=== PATIENT | male | born 1960 | race Caucasian/White ===

== ENCOUNTER 2017-11-17 17:05 | Emergency (ER) | payer MEDICAID, SELFPAY ==
--- NOTE | 2017-11-17 17:27 | XR_ITS ---
XR chest 2V HISTORY: Shortness of air ITS.REASON: SOA ORDERING PHYSICIAN: CAMERON Kilpatrick PATIENT AGE: 57 years COMPARISON: 03/10/2017 FINDINGS: There is been prior median sternotomy. There is fracture of the 2 superior most median sternotomy wires nonspecific. Normal heart size. No lobar consolidation or collapse. There is evidence of old granulomatous disease. IMPRESSION: As above, no acute finding
[2017-11-17 17:29] VITALS: BP 208/110; BP 210/102; PULSE 94; RESP 20; TEMP 36.4; O2SAT 93; BMI 33.2
--- NOTE | 2017-11-17 17:42 | HMH.EDUTC ---
[facility] Disposition Clinical Impression: COPD exacerbation Sinusitis Qualifiers: Sinusitis location: maxillary Chronicity: acute Recurrence: not specified as recurrent Qualified Code(s): J01.00 - Acute maxillary sinusitis, unspecified Disposition: Home, Self-Care Condition on Discharge: Good Instructions: DI for Sinusitis Prescriptions: Amoxicillin/Potassium Clav [Augmentin 875-125 Tablet] 1 tab PO Q12H 10 Days #20 tab methylPREDNISolone [Medrol] 4 mg PO DAILY 6 Days #21 tab.ds.pk Guaifenesin/Dextromethorphan [Mucinex Dm ER 1,200-60 mg Tab] 1 each PO BID 10 Days #20 tab.er.12h Albuterol Sulfate [Proventil-HFA 90mcg/puff Inh] 2 puffs IH QIDP PRN #1 inh PRN Reason: Wheezing Time of Disposition: 18:04 Medical Decision Making - Medical Records Medical records reviewed: Yes: I reviewed the patient's medical records. Vital Signs: 11/17/17 17:29 Temperature 97.6 F Temperature Source Temporal Artery Scan Pulse Rate [Right Radial] 94 H Respiratory Rate 20 Blood Pressure [Left Arm] 210/102 Blood Pressure [Right Arm] 208/110 Blood Pressure Mean [Left Arm] 138 Blood Pressure Mean [Right Arm] 142 Blood Pressure Source [Left Arm] Automatic Cuff Blood Pressure Source [Right Arm] Automatic Cuff Blood Pressure Position [Left Arm] Sitting Blood Pressure Position [Right Arm] Sitting 02 Sat by Pulse Oximetry 93 L Oxygen Delivery Method Room Air Orders (Tests/Meds): ED MEDICATIONS Discontinued Medications Generic Name Dose Route Start Last Admin Trade Name Freq PRN Reason Stop Dose Admin Albuterol/Ipratropium 3 ml 11/17/17 17:37 11/17/17 17:40 Duoneb 3ml Neb IH 11/17/17 17:38 3 ml ONCE ONE Administration ORDERS Category Date Time Status Chest XR 2 view (NOT portable) [XR chest 2V] Stat Exams 11/17/17 17:27 Ordered - Radiology Data #1 Image(s): Chest Image Reviewed: Yes I reviewed the patient's radiology image Preliminary Findings: Normal/NAD, No Infiltrates Seen - Dominguez Inquiry Pt receiving controlled substance: No [facility] HPI - General Stated complaint: SOA Time Seen by Provider: 11/17/17 17:40 Mode of Arrival: Family Vehicle Source of Information: Patient Limitations: No Limitations Description of Symptoms (Recalled from Triage Doc. by RN): PT C/O SHORTNESS OF BREATH AND CONGESTION SINCE TUESDAY. HEENT Symptoms (Recalled from RN notes): No Resp Symptoms (Recalled from RN notes): Yes (SOA AND CONGESTION) Skin Symptoms (Recalled from RN notes): No MS Symptoms (Recalled from RN notes): No Functional Status (Recalled from RN notes): NA - History of Present Illness Provider Complaint: Congestion, sinus drainage, cough X 4-5 days. Possible fever. No chills. No body aches. Productive cough, clear sputum. No vomiting or diarrhea. History of CAD, HTN. Onset (ago): day(s) (5) Associated symptoms: cough, malaise, shortness of breath Treatments prior to arrival: none - Related Data Home Medications Medication Instructions Recorded Confirmed Loratadine [Claritin 10mg Tablet] 10 mg PO DAILY 11/17/17 11/17/17 Omeprazole/Sodium Bicarbonate 1 each PO DAILY 11/17/17 11/17/17 [Zegerid 20 mg Capsule] Propranolol HCl 40 mg PO DAILY 11/17/17 11/17/17 Previous Rx's Medication Instructions Recorded Albuterol Sulfate [Proventil-HFA 2 puffs IH QIDP PRN #1 inh 11/17/17 90mcg/puff Inh] Amoxicillin/Potassium Clav 1 tab PO Q12H 10 Days #20 tab 11/17/17 [Augmentin 875-125 Tablet] Guaifenesin/Dextromethorphan 1 each PO BID 10 Days #20 11/17/17 [Mucinex Dm ER 1,200-60 mg Tab] tab.er.12h methylPREDNISolone [Medrol] 4 mg PO DAILY 6 Days #21 tab.ds.pk 11/17/17 Allergies Allergy/AdvReac Type Severity Reaction Status Date / Time No Known Allergies Allergy Verified 11/17/17 17:36 - Worker's Comp Is this a Worker's Comp case?: No [facility] History I have reviewed the patient's past medical history: Yes Medical History: Reports:: Coronary Artery Disease Prabhakar
[2017-11-17 17:44] VITALS: PULSE 89; PULSE 90
--- NOTE | 2017-11-17 17:53 | ED_ITS ---
[facility] [place] Clinical Impression: COPD exacerbation Sinusitis Qualifiers: Sinusitis location: maxillary Chronicity: acute Recurrence: not specified as recurrent Qualified Code(s): J01.00 - Acute maxillary sinusitis, unspecified Disposition: Home, Self-Care Condition on Discharge: Good Instructions: DI for Sinusitis Prescriptions: Amoxicillin/Potassium Clav [Augmentin 875-125 Tablet] 1 tab PO Q12H 10 Days #20 tab methylPREDNISolone [Medrol] 4 mg PO DAILY 6 Days #21 tab.ds.pk Guaifenesin/Dextromethorphan [Mucinex Dm ER 1,200-60 mg Tab] 1 each PO BID 10 Days #20 tab.er.12h Albuterol Sulfate [Proventil-HFA 90mcg/puff Inh] 2 puffs IH QIDP PRN #1 inh PRN Reason: Wheezing Time of Disposition: 18:04 Medical Decision Making - Medical Records Medical records reviewed: Yes: I reviewed the patient's medical records. Vital Signs: 11/17/17 17:29 Temperature 97.6 F Temperature Source Temporal Artery Scan Pulse Rate [Right Radial] 94 H Respiratory Rate 20 Blood Pressure [Left Arm] 210/102 Blood Pressure [Right Arm] 208/110 Blood Pressure Mean [Left Arm] 138 Blood Pressure Mean [Right Arm] 142 Blood Pressure Source [Left Arm] Automatic Cuff Blood Pressure Source [Right Arm] Automatic Cuff Blood Pressure Position [Left Arm] Sitting Blood Pressure Position [Right Arm] Sitting 02 Sat by Pulse Oximetry 93 L Oxygen Delivery Method Room Air Orders (Tests/Meds): ED MEDICATIONS Discontinued Medications Generic Name Dose Route Start Last Admin Trade Name Freq PRN Reason Stop Dose Admin Albuterol/Ipratropium 3 ml 11/17/17 17:37 11/17/17 17:40 Duoneb 3ml Neb IH 11/17/17 17:38 3 ml ONCE ONE Administration ORDERS Category Date Time Status Chest XR 2 view (NOT portable) [XR chest 2V] Stat Exams 11/17/17 17:27 Ordered - Radiology Data #1 Image(s): Chest Image Reviewed: Yes I reviewed the patient's radiology image Preliminary Findings: Normal/NAD, No Infiltrates Seen - Dominguez Inquiry Pt receiving controlled substance: No [facility] - General Stated complaint: SOA Time Seen by Provider: 11/17/17 17:40 Mode of Arrival: Family Vehicle Source of Information: Patient Limitations: No Limitations Description of Symptoms (Recalled from Triage Doc. by RN): PT C/O SHORTNESS OF BREATH AND CONGESTION SINCE TUESDAY. HEENT Symptoms (Recalled from RN notes): No Resp Symptoms (Recalled from RN notes): Yes (SOA AND CONGESTION) Skin Symptoms (Recalled from RN notes): No MS Symptoms (Recalled from RN notes): No Functional Status (Recalled from RN notes): NA - History of Present Illness Provider Complaint: Congestion, sinus drainage, cough X 4-5 days. Possible fever. No chills. No body aches. Productive cough, clear sputum. No vomiting or diarrhea. History of CAD, HTN. Onset (ago): day(s) (5) Associated symptoms: cough, malaise, shortness of breath Treatments prior to arrival: none - Related Data Home Medications Medication Instructions Recorded Confirmed Loratadine [Claritin 10mg Tablet] 10 mg PO DAILY 11/17/17 11/17/17 Omeprazole/Sodium Bicarbonate 1 each PO DAILY 11/17/17 11/17/17 [Zegerid 20 mg Capsule] Propranolol HCl 40 mg PO DAILY 11/17/17 11/17/17 Previous Rx's Medicatio
[2017-11-17 18:10] VITALS: BP 167/92; PULSE 88; RESP 20; TEMP 36.8; O2SAT 94
== END 2017-11-17 18:12 | disposition home or self-care (01) ==
PROVIDERS: Emergency Provider Physician Assistant; Family Provider Family Medicine
DX: J44.1 Chronic obstructive pulmonary disease with (acute) exacerbation (principal); I25.10 Atherosclerotic heart disease of native coronary artery without angina pectoris; F17.210 Nicotine dependence, cigarettes, uncomplicated
CPT/HCPCS: 71046; 99202

== ENCOUNTER → 2018-08-09 16:14 | Outpatient (POV) | payer MEDICAID, SELFPAY | DX: Z00.00 Encounter for general adult medical examination without abnormal findings (principal) ==

== ENCOUNTER → 2021-01-28 13:08 | Outpatient (POV) | payer MEDICAID, SELFPAY | DX: Z00.00 Encounter for general adult medical examination without abnormal findings (principal) ==

== ENCOUNTER 2022-03-12 11:32 | Emergency (ER) | payer MEDICARE, SELFPAY ==
--- NOTE | 2022-03-12 11:27 | ECG_ITS ---
APPROVED REPORT Exam: Resting ECG HR:59 bpm ECG Measurements Heart Rate 59 AXES SC 177 P -26 QRSd 150 QRS -24 QT 434 T 50 QTc 434 Conclusion SINUS BRADYCARDIA INDETERMINATE AXIS RIGHT BUNDLE BRANCH BLOCK [120+ ms QRS DURATION, UPRIGHT V1, 40+ ms S IN I/aVL/V4/V5/V6] ABNORMAL ECG UNCONFIRMED REPORT Electronically signed by : Kimo Mott MD 03/12/2022 15:33:22
[2022-03-12 11:32] VITALS: BP 197/90; PULSE 88; RESP 17; TEMP 36.9; O2SAT 98; BMI 34.2
--- NOTE | 2022-03-12 11:33 | HMH.EDGENADL ---
ED Disposition Clinical Impression: Palpitations Chest pain Qualifiers: Chest pain type: unspecified Qualified Code(s): R07.9 - Chest pain, unspecified Disposition: Home, Self-Care Condition on Discharge: Good Instructions: DI for Atypical Chest Pain, DI for Palpitations Additional Instructions: Follow-up with Dr. Momin, cardiology service, and in the office on Tuesday as instructed. Additional instructions for CHEST PAIN: See your physician as soon as possible for further evaluation. Return immediately if worsening chest pain, vomiting, shortness of breath, fever, coughing of blood. Prescriptions: Losartan Potassium 50 mg PO DAILY #30 tab Transmission Status: Received by [facility] #[id number] Referrals: Ric Roberts MD [Primary Care Provider] - Tony Momin MD [Staff Physician] - - Critical Care Critical Care Time: No Attestation: On , the high probability of a clinically significant, sudden or life threatening deterioration of the following system(s) required my full and direct attention, intervention and personal management. The time I documented below is in addition to time spent performing reported procedures but includes the following listed in this critical care notation. Medical Decision Making - Dominguez Inquiry Pt receiving controlled substance: No Vital Signs: 03/12/22 11:32 03/12/22 12:36 03/12/22 13:01 Temperature 98.4 F Temperature Source Oral Pulse Rate 54 L 54 L Pulse Rate [Left Radial] 88 Respiratory Rate 17 16 18 Blood Pressure 166/75 H 177/83 H Blood Pressure [Right Arm] 197/90 H Blood Pressure Mean 105 114 Blood Pressure Mean [Right Arm] 125 Blood Pressure Source Blood Pressure Source [Right Arm] Automatic Cuff Blood Pressure Position Blood Pressure Position [Right Arm] Sitting 02 Sat by Pulse Oximetry 98 96 95 Oxygen Delivery Method Room Air 03/12/22 13:31 03/12/22 16:16 03/12/22 16:35 Temperature 98.2 F Temperature Source Pulse Rate 55 L 53 L 51 L Pulse Rate [Left Radial] Respiratory Rate 16 18 20 Blood Pressure 168/75 H 177/84 H 173/84 H Blood Pressure [Right Arm] Blood Pressure Mean 106 Blood Pressure Mean [Right Arm] Blood Pressure Source Automatic Cuff Blood Pressure Source [Right Arm] Blood Pressure Position Sitting Blood Pressure Position [Right Arm] 02 Sat by Pulse Oximetry 97 94 L Oxygen Delivery Method Room Air - Lab Data Lab Results 03/12/22 11:30: Sodium 140, Potassium 4.2, Chloride 104, Carbon Dioxide 28, Anion Gap 12.2, BUN 16, Creatinine 0.90, Estimated Creat Clear 146, Estimated GFR 86, Est GFR ( Amer) 104, Glucose 94, Calcium 9.3, Total Bilirubin 0.5, AST 38, ALT 25, Alkaline Phosphatase 82, Troponin I < 0.01, Total Protein 8.5 H, Albumin 4.4, Globulin 4.1 H, Albumin/Globulin Ratio 1.1 03/12/22 11:30: WBC 11.9 H, RBC 5.13, Hgb 16.2, Hct 48.1, MCV 93.8, MCH 31.6 H, MCHC 33.7, RDW 14.1, Plt Count 137 L, MPV 12.4 H, Neut % (Auto) 56.5, Lymph % (Auto) 30.5, [place] % (Auto) 6.1, Eos % (Auto) 3.7, Baso % (Auto) 3.2 H, Neut # (Auto) 6.8, Lymph # (Auto) 3.7, [place] # (Auto) 0.7, Eos # (Auto) 0.4, Baso # (Auto) 0.4 H 03/12/22 14:45: Troponin I < 0.01 Result diagrams: 03/12/22 11:30 03/12/22 11:30 Orders (Tests/Meds): ED MEDICATIONS Discontinued Medications Generic Name Dose Route Start Last Admin Trade Name Freq PRN Reason Stop Dose Admin Aspirin 162 mg 03/12/22 11:39 03/12/22 11:40 Aspirin 81mg Chewable Tablet PO 03/12/22 11:40 162 mg ONCE ONE Administration Irbesartan 75 mg 03/12/22 16:15 03/12/22 16:22 Irbesartan 75mg Tablet PO 03/12/22 16:16 75 mg ONCE ONE Administration Sodium Chloride 10 ml 03/12/22 11:37 Sodium Chloride 0.9% 10ml Flush Syringe IV 04/11/22 11:36 NEEDED PRN Maintain IV Site ORDERS Category Date Time Status Consult to Cardiology [CONS] Routine Cons 03/12/22 12:37 Active Troponin I Q3H Lab
--- NOTE | 2022-03-12 11:37 | XR_ITS ---
FINAL REPORT CLINICAL HISTORY: chest pressure COMPARISON: February 06, 2019 FINDINGS: Two views of the chest were obtained. There has been median sternotomy. The heart size and pulmonary vascularity are within normal limits. The mediastinum is normal. There is mild left lung base atelectasis. There is no pneumothorax. The bony thorax is intact. IMPRESSION: Mild left base atelectasis. Reviewed, Interpreted and Dictated by Mike Cleveland III, MD Transcribed by Diogo Evangelista Authenticated and [facility]
[2022-03-12 11:53] LABS: Alanine Aminotransferase 25 U/L (12-78); Albumin Level 4.4 g/dl (3.5-5.0); Albumin/Globulin Ratio 1.1 (1.1-1.8); Alkaline Phosphatase 82 U/L (38-126); Anion Gap 12.2 mEq/L (5-15); Aspartate Amino Transferase 38 U/L (17-59); Bilirubin,Total 0.5 mg/dl (0.2-1.3); Blood Urea Nitrogen 16 mg/dl (9-20); Calcium 9.3 mg/dl (8.4-10.2); Carbon Dioxide 28 mmol/L (22.0-30.0); Chloride 104 mmol/L (98-107); Creatinine Clearance Estimated 146 mL/min (50-200); Estimated Glomerular Filt Rate 86 ml/min (>60); GFR (African American) 104 ML/MIN (>60); Globulin 4.1 g/dL (1.3-3.2); Glucose 94 mg/dl (74-100); Potassium 4.2 mmoL/L (3.5-5.1); Sodium 140 mmol/L (136-145); Total Protein,Serum 8.5 g/dl (6.3-8.2)
[2022-03-12 12:01] LABS: Basophils # 0.4 K/mm3 (0-0.2); Basophils % 3.2 % (0.1-2.0); Eosinophils # 0.4 K/mm3 (0.0-0.4); Eosinophils % 3.7 % (0.1-12.0); Hematocrit 48.1 % (42.0-52.0); Hemoglobin 16.2 g/dL (14.1-18.0); Lymphocytes # 3.7 K/mm3 (0.7-4.5); Lymphocytes % 30.5 % (10-50); Mean Corpuscular HGB Conc 33.7 g/dL (31.8-35.4); Mean Corpuscular Hemoglobin 31.6 pg (27.0-31.2); Mean Corpuscular Volume 93.8 fl (80-94); Mean Platelet Volume 12.4 fl (7.4-10.4); Monocytes # 0.7 K/mm3 (0.1-1.0); Monocytes % 6.1 % (1.7-9.3); Neutrophils # 6.8 K/mm3 (1.8-7.8); Neutrophils % 56.5 % (37.0-80.0); Platelet Count 137 K/mm3 (142-424); Red Blood Count 5.13 M/mm3 (4.60-6.20); Red Cell Distribution Width 14.1 % (11.5-17.5); White Blood Count 11.9 K/mm3 (4.8-10.8)
[2022-03-12 12:08] LABS: Troponin I < 0.01 ng/ml (0.00-0.034)
--- NOTE | 2022-03-12 12:25 | PC.NURSE ---
checked on pt at this time, visitor at BS. Pt states no needs at this time. Will continue to monitor
[2022-03-12 12:36] VITALS: BP 166/75; PULSE 54; RESP 16; O2SAT 96
--- NOTE | 2022-03-12 12:43 | PC.NURSE ---
Cardiology paged for consult
[2022-03-12 13:01] VITALS: BP 177/83; PULSE 54; RESP 18; O2SAT 95
[2022-03-12 13:31] VITALS: BP 168/75; PULSE 55; RESP 16; O2SAT 97
--- NOTE | 2022-03-12 13:38 | PC.NURSE ---
DANISHA TOPETE speaking with CAMERON Enriquez with cardiology at this time.
--- NOTE | 2022-03-12 13:44 | PC.NURSE ---
CV lab notified of need for Echo
--- NOTE | 2022-03-12 13:53 | PC.NURSE ---
ASSISTED TO BR AT THIS TIME
--- NOTE | 2022-03-12 14:13 | CA_ITS ---
APPROVED REPORT EXAM: Comprehensive 2D, Doppler, and color-flow Echocardiogram Merchandise Shopper: Aleja Harrison CRT Ht: 6 ft 1 in Wt: 260lbs BSA: 2.41 BP: 168/75 mmHg Indications: CP, SMOKER, OLD NM, CABG AT 35 YRS OLD 2D Dimensions LVOT 2.02 cm (M/F) 1.5-2.5 LA Volume 80.60 mL LA Volume Index 33.501958 mL/m2 (M/F) 16-34 M-Mode Dimensions RVDd 3.62 cm (0.9-2.6) LA Diam 4.09 cm (1.9-4.0) LVDd 4.99 cm (3.5-5.7) Ao Diam 4.71 cm (2.0-3.7) LVDs 2.58 cm (3.5-5.7) IVSd 1.69 cm (0.6-1.1) PWd 1.05 cm (0.6-1.1) EF (Teich) 79.50% FS 48.30% EDV (Teich) 117.70 mL TAPSE 1.66 (<1.7) ESV (Teich) 24.10 mL LV Diastology E Decel Time 207.00 (160-240 msec) E/A Ratio 1.56 MED E' 5.50 (< 7 cm/sec) MED A' 6.00 cm/s E'/MED E' Ratio 17.25 (>14) LAT E' 7.90 (<10 cm/sec) LAT A' 6.20 cm/s E/LAT E' Ratio 12.01 (>14) Aortic Valve AO Peak GR. 4.50 mmHg Mitral Valve MV A Velocity 61.00 (40-130 cm/s) E/A Ratio 1.56 MV Decel. Time 207.00 (160-240 ms) Pulmonary Valve PV Peak Velocity 119.00 (50-150 cm/s) Tricuspid Valve TR P. Velocity 214.00 cm/s RAP Estimate 10.00 mmHg RVSP 28.30 mmHg Left Ventricle Left atrium is mildly enlarged, left ventricle is normal size, mild concentric left ventricular hypertrophy, estimated ejection fraction 55% with no regional wall motion abnormality, diastolic parameters are inconclusive. Right Ventricle Right atrium and right ventricle mildly enlarged with normal contractility. Aortic Valve Aortic valve is minimally thickened and fibrosed there is no aortic stenosis aortic insufficiency. Mitral Valve Mitral valve grossly normal, there is trace mitral regurgitation. Tricuspid Valve Tricuspid grossly normal, there is trace tricuspid regurgitation, tricuspid regurgitation jet velocity is inadequate for calculation of the right ventricular systolic pressure. Pulmonic Valve Pulmonic valve is poorly visualized. Great Vessels Aortic root is normal size. Inferior vena cava is poorly visualized. Pericardium No significant pericardial effusion noted. Conclusion 1. Mild biatrial enlargement, normal left ventricular size, mild concentric left ventricular hypertrophy, estimated ejection fraction 55% with no regional wall motion abnormality, diastolic parameters are inconclusive. 2. Mildly enlarged right ventricle with normal contractility. 3. Trace mitral and tricuspid regurgitation. 4. No significant pericardial effusion. 5. Inferior vena cava is poorly visualized. Electronically signed by : Herman Og MD 03/12/2022 16:02:54
--- NOTE | 2022-03-12 14:15 | PC.NURSE ---
contacted RT for 48 hr holter monitor
--- NOTE | 2022-03-12 14:49 | PC.NURSE ---
Vascular here for echo
--- NOTE | 2022-03-12 15:04 | HMH.CNCARD ---
History of Present Illness Consult date: 03/12/22 Requesting physician: Jay Russell Consult reason: chest pain Chief complaint: CP, Palpitations, dizziness Additional Medical History:: 1. Atypical chest pain (02/06/19) A. Troponins normal 2. Coronary Artery Disease a. [place] (age 35) b. CABG x2 (1994)([facility] in [place]) c. Coronary stent (2016) ([place]) 3. Tobacco user a. Less than 1 ppk b. Smoker for over 30 years 4. Chronic Alcoholism a. 2017 5. Essential Hypertension 6. Macular degeneration of eye disease a. Legally blind for the past 8 years History of present illness: States that he has been having chest discomfort, racing heart the off and on for about 1 to 2 weeks. Currently only has a slight tightness in his chest. No associated nausea or shortness of breath, but sometimes gets sweaty. Sometimes has some discomfort in his left arm. He is on metoprolol and aspirin for heart disease. He has a prior history of [place] and coronary artery bypass surgery at the age of 35. Does not currently see a drug safety coordinator. The above per Dr. Russell Patient relates coronary bypass 25 years ago with last stress test approximately 10 to 12 years ago. As noted above he has not seen a drug safety coordinator in the recent past. EKG is sinus rhythm with right bundle branch block, unchanged from 2019 tracing. Chest x-ray negative for acute etiology. Patient is legally blind He was seen in the ER by cardiology 3 years ago but failed to follow-up for outpatient evaluation. [facility] History Medical History: Reports:: Coronary Artery Disease, Myocardial Infarction Denies:: Cancer, Diabetes Mellitus Type 1, Diabetes Mellitus Type 2, MRSA *Have you ever received a pneumonia vaccine?: No *Have you received a flu vaccine this season?: No Other Surgeries: Yes: CABG Amputation: No - *Social History Smoking Status: Current every day smoker Tobacco Type: cigarettes # Packs/Day (cigarettes): 1 Alcohol Intake: never *Occupational Status:: disabled *Travel in the last 8 weeks: Inside the [facility] Family Hx:: No significant family history Meds Home Medications Medication Instructions Recorded Confirmed Type Loratadine [Claritin 10mg 10 mg PO DAILY 11/17/17 02/06/19 History Tablet] Albuterol Sulfate [Albuterol HFA 2 puffs IH Q6HP PRN #1 inh 03/08/18 02/06/19 Rx Inhaler] Metoprolol Succinate 100 mg PO DAILY 03/08/18 02/06/19 History Fluticasone Propionate [Flonase 2 spr NS DAILY 02/06/19 02/06/19 History 50mcg nasal spray 16gm] Propranolol HCl [Inderal LA] 60 mg PO DAILY 02/06/19 02/06/19 History Ibuprofen [Ibuprofen 600mg 600 mg PO Q6HP PRN #30 tab 04/12/19 Rx Tablet] cephALEXin [Keflex 500mg Cap] 500 mg PO Q6H 10 Days #40 cap 04/12/19 Rx Allergies Allergy/AdvReac Type Severity Reaction Status Date / Time No Known Allergies Allergy Verified 11/17/17 17:36 Exam Vital signs and Labs for Last 24 Hours: Temp Pulse Resp BP Pulse Ox 98.4 F 55 L 16 168/75 H 97 03/12/22 11:32 03/12/22 13:31 03/12/22 13:31 03/12/22 13:31 03/12/22 13:31 Laboratory Results - last 24 hr 03/12/22 11:30: Sodium 140, Potassium 4.2, Chloride 104, Carbon Dioxide 28, Anion Gap 12.2, BUN 16, Creatinine 0.90, Estimated Creat Clear 146, Estimated GFR 86, Est GFR ( Amer) 104, Glucose 94, Calcium 9.3, Total Bilirubin 0.5, AST 38, ALT 25, Alkaline Phosphatase 82, Troponin I < 0.01, Total Protein 8.5 H, Albumin 4.4, Globulin 4.1 H, Albumin/Globulin Ratio 1.1 03/12/22 11:30: WBC 11.9 H, RBC 5.13, Hgb 16.2, Hct 48.1, MCV 93.8, MCH 31.6 H, MCHC 33.7, RDW 14.1, Plt Count 137 L, MPV 12.4 H, Neut % (Auto) 56.5, Lymph % (Auto) 30.5, [place] % (Auto) 6.1, Eos % (Auto) 3.7, Baso % (Auto) 3.2 H, Neut # (Auto) 6.8, Lymph # (Auto) 3.7, [place] # (Auto) 0.7, Eos # (Auto) 0.4, Baso # (Auto) 0.4 H I & O for Last 24 hours: Intake & Output 03/10/22 03/11/22 03/12/22 03/13/22 11:59 11:59 1
[2022-03-12 15:27] LABS: Troponin I < 0.01 ng/ml (0.00-0.034)
--- NOTE | 2022-03-12 15:56 | PC.NURSE ---
Updated pt and visitor that 2nd troponin was negative and MD was repairing a laceration and as soon as he was finished he would review the rest of pt's results and would more than likely be d/c'ed home. PT agreeable to POC and no new needs.
[2022-03-12 16:16] VITALS: BP 177/84; PULSE 53; RESP 18; O2SAT 94
[2022-03-12 16:35] VITALS: BP 173/84; PULSE 51; RESP 20; TEMP 36.8; O2SAT 96
== END 2022-03-12 16:35 | disposition home or self-care (01) ==
PROVIDERS: Emergency Provider Emergency Medicine; PCP Family Medicine
DX: R07.89 Other chest pain (principal); R00.2 Palpitations; R42 Dizziness and giddiness; M79.602 Pain in left arm; R00.1 Bradycardia, unspecified; I10 Essential (primary) hypertension; I25.10 Atherosclerotic heart disease of native coronary artery without angina pectoris; I45.10 Unspecified right bundle-branch block; E78.5 Hyperlipidemia, unspecified; H35.30 Unspecified macular degeneration; H54.8 Legal blindness, as defined in USA; J98.11 Atelectasis; F10.20 Alcohol dependence, uncomplicated; F17.210 Nicotine dependence, cigarettes, uncomplicated; Z79.1 Long term (current) use of non-steroidal anti-inflammatories (NSAID); Z79.51 Long term (current) use of inhaled steroids; Z79.82 Long term (current) use of aspirin; Z79.899 Other long term (current) drug therapy; Z95.1 Presence of aortocoronary bypass graft; Z95.5 Presence of coronary angioplasty implant and graft
CPT/HCPCS: 36415; 71046; 80053; 84484; 85025; 93005; 93225; 93226; 93306; 99285

== ENCOUNTER → 2022-03-30 07:35 | Outpatient (CLI) | payer MEDICARE, SELFPAY ==
--- NOTE | 2022-03-30 09:13 | HMH.ITSHM ---
Current Home Medications as stated by this patient Ronal Larkin or reimbursement representative. []LOSARTAN ATORVASTATIN METOPROLOL LORATADINE IBUPROFEN ALBUTEROL
== END ==
LOC: RAD 07:36
PROVIDERS: PCP Family Medicine; Visit Provider Nurse Practitioner Family
DX: E78.5 Hyperlipidemia, unspecified (principal); I10 Essential (primary) hypertension; R00.2 Palpitations; R55 Syncope and collapse; Z72.0 Tobacco use; Z95.1 Presence of aortocoronary bypass graft; I20.8 Other forms of angina pectoris
CPT/HCPCS: 78452; 93017; A9502; J2785

== ENCOUNTER → 2023-03-15 11:48 | Outpatient (CLI) | payer MEDICARE, SELFPAY ==
[2023-03-15 12:24] LABS: Basophils # 0.1 K/mm3 (0-0.2); Basophils % 0.6 % (0.1-2.0); Eosinophils # 0.3 K/mm3 (0.0-0.4); Eosinophils % 3.3 % (0.1-12.0); Hematocrit 42.2 % (42.0-52.0); Hemoglobin 14.1 g/dL (14.1-18.0); Lymphocytes % 29.4 % (10-50); Mean Corpuscular HGB Conc 33.5 g/dL (31.8-35.4); Mean Corpuscular Hemoglobin 30.5 pg (27.0-31.2); Mean Corpuscular Volume 91.3 fl (80-94); Mean Platelet Volume 11.7 fl (7.4-10.4); Monocytes # 0.7 K/mm3 (0.1-1.0); Monocytes % 6.5 % (1.7-9.3); Neutrophils # 6.2 K/mm3 (1.8-7.8); Neutrophils % 60.2 % (37.0-80.0); Platelet Count 140 K/mm3 (142-424); Red Blood Count 4.62 M/mm3 (4.60-6.20); Red Cell Distribution Width 13.7 % (11.5-17.5); White Blood Count 10.2 K/mm3 (4.8-10.8)
[2023-03-15 13:05] LABS: Alanine Aminotransferase 26 U/L (12-78); Albumin Level 4.2 g/dl (3.5-5.0); Alkaline Phosphatase 89 U/L (38-126); Anion Gap 15.3 mEq/L (5-15); Aspartate Amino Transferase 35 U/L (17-59); Bilirubin,Indirect 0.7 mg/dL (0.0-0.9); Bilirubin,Total 0.7 mg/dl (0.2-1.3); Bilirubin,Unconjugated 0.8 mg/dL (0.0-1.1); Blood Urea Nitrogen 14 mg/dl (9-20); Calcium 9.2 mg/dl (8.4-10.2); Carbon Dioxide 26 mmol/L (22.0-30.0); Chloride 102 mmol/L (98-107); Chol/HDL Ratio 5.5 (1-3.5); Cholesterol 132 mg/dl (140-200); Estimated Glomerular Filt Rate 68 ml/min (>60); GFR (African American) 82 ML/MIN (>60); Glucose 86 mg/dl (74-100); HDL Cholesterol 24 mg/dl (40-60); Magnesium 1.9 mg/dl (1.6-2.3); Potassium 4.3 mmoL/L (3.5-5.1); Sodium 139 mmol/L (136-145); Total Protein,Serum 7.6 g/dl (6.3-8.2); Triglycerides 316 mg/dl (30-150); VLDL Cholesterol 63 mg/dL (0-40)
[2023-03-15 13:16] LABS: Direct LDL Cholesterol 49.94 mg/dL (100-129)
[2023-03-15 13:37] LABS: Thyroid Stimulating Hormone 1.37 uIU/mL (0.465-4.68)
== END ==
PROVIDERS: PCP Family Medicine; Visit Provider Nurse Practitioner
DX: E78.5 Hyperlipidemia, unspecified (principal); I10 Essential (primary) hypertension; I25.118 Atherosclerotic heart disease of native coronary artery with other forms of angina pectoris; R00.2 Palpitations; R07.9 Chest pain, unspecified; Z72.0 Tobacco use; Z95.1 Presence of aortocoronary bypass graft
CPT/HCPCS: 36415; 80048; 80061; 80076; 83735; 84439; 84443; 85025

== ENCOUNTER 2024-09-25 12:40 | Outpatient (CLI) | payer MEDICARE, SELFPAY ==
[2024-09-25 12:59] LABS: Basophils # 0.1 K/mm3 (0-0.2); Basophils % 0.8 % (0.1-2.0); Eosinophils # 0.3 K/mm3 (0.0-0.4); Eosinophils % 3.2 % (0.1-12.0); Hematocrit 41.5 % (42.0-52.0); Hemoglobin 13.9 g/dL (14.1-18.0); Lymphocytes # 2.6 K/mm3 (0.7-4.5); Lymphocytes % 28.3 % (10-50); Mean Corpuscular HGB Conc 33.5 g/dL (31.8-35.4); Mean Corpuscular Volume 92.4 fl (80-94); Mean Platelet Volume 12.9 fl (7.4-10.4); Monocytes # 0.7 K/mm3 (0.1-1.0); Monocytes % 8.2 % (1.7-9.3); Neutrophils # 5.4 K/mm3 (1.8-7.8); Neutrophils % 59.3 % (37.0-80.0); Platelet Count 119 K/mm3 (142-424); Red Blood Count 4.49 M/mm3 (4.60-6.20); White Blood Count 9.1 K/mm3 (4.8-10.8)
[2024-09-25 13:44] LABS: Albumin Level 4.3 g/dl (3.5-5.0); Chloride 104 mmol/L (98-107); Potassium 4.4 mmoL/L (3.5-5.1); Sodium 139 mmol/L (136-145)
[2024-09-25 13:46] LABS: Bilirubin,Unconjugated 0.5 mg/dL (0.0-1.1); Blood Urea Nitrogen 18 mg/dl (9-20); Estimated Glomerular Filt Rate 68 ml/min (>60); GFR (African American) 82 ML/MIN (>60)
[2024-09-25 13:47] LABS: Alanine Aminotransferase 24 U/L (12-78); Alkaline Phosphatase 79 U/L (38-126); Anion Gap 13.4 mEq/L (5-15); Aspartate Amino Transferase 36 U/L (17-59); Bilirubin,Direct 0.3 mg/dl (0.0-0.4); Bilirubin,Indirect 0.5 mg/dL (0.0-0.9); Bilirubin,Total 0.8 mg/dl (0.2-1.3); Calcium 9.6 mg/dl (8.4-10.2); Carbon Dioxide 26 mmol/L (22.0-30.0); Cholesterol 134 mg/dl (140-200); Glucose 88 mg/dl (74-100); Total Protein,Serum 7.2 g/dl (6.3-8.2); Triglycerides 274 mg/dl (30-150); VLDL Cholesterol 55 mg/dL (0-40)
[2024-09-25 13:48] LABS: Chol/HDL Ratio 6.4 (1-3.5); HDL Cholesterol 21 mg/dl (40-60)
[2024-09-25 14:03] LABS: Free T4 (Free Thyroxine) 0.91 ng/dl (0.78-2.19)
[2024-09-25 14:18] LABS: Thyroid Stimulating Hormone 1.42 uIU/mL (0.465-4.68)
== END 2024-09-25 23:59 | disposition home or self-care (01) ==
LOC: LAB 12:42
PROVIDERS: PCP Family Medicine; Visit Provider Physician Assistant
DX: I25.118 Atherosclerotic heart disease of native coronary artery with other forms of angina pectoris (principal); Z95.1 Presence of aortocoronary bypass graft; I10 Essential (primary) hypertension; E78.5 Hyperlipidemia, unspecified; F17.210 Nicotine dependence, cigarettes, uncomplicated
CPT/HCPCS: 36415; 80048; 80061; 80076; 83735; 84439; 84443; 85025

== ENCOUNTER 2024-12-27 14:37 | Outpatient (CLI) | payer MEDICARE, SELFPAY ==
--- NOTE | 2024-12-27 14:30 | CA_ITS ---
FINAL REPORT TECHNIQUE: Compression barr scale and Doppler evaluation CLINICAL HISTORY: Right leg pain, CAD-CABG, Smoker COMPARISON: None FINDINGS: Right femoral and popliteal veins show normal compressibility and flow. Visualized portion of the calf veins are patent by Doppler exam. There is incidental note of popliteal arterial thrombosis, mildly aneurysmal. If clinically indicated, CTA could be performed for further evaluation. IMPRESSION: No evidence of right lower extremity deep venous thrombosis Incidental note is made of popliteal arterial thrombosis, which appears mildly aneurysmal. If clinically indicated CTA could be performed for further evaluation. The chemistry technologist at 12/27/2024 informed the ordering physician of this finding. Reviewed, Interpreted and Dictated by Muriel aCr MD Transcribed by Charo Islas Authenticated and [facility]
== END 2024-12-27 23:59 | disposition home or self-care (01) ==
PROVIDERS: PCP Internal Medicine; Visit Provider Physician Assistant
DX: I74.3 Embolism and thrombosis of arteries of the lower extremities (principal); M79.604 Pain in right leg; R07.89 Other chest pain; I25.118 Atherosclerotic heart disease of native coronary artery with other forms of angina pectoris
CPT/HCPCS: 93971

== ENCOUNTER 2025-01-09 13:14 | Outpatient (CLI) | payer MEDICARE, SELFPAY ==
--- NOTE | 2025-01-09 | CA_ITS ---
APPROVED REPORT EXAM: Comprehensive 2D, Doppler, and color-flow Echocardiogram Artificial Plastic Eye Maker: ALEJANDRA De Souza, RVS Ht: 6 ft 1 in Wt: 254lbs BSA: 2.38 BP: 141/63 mmHg Indications: Edema x 1 month, DVT, S/p COVID 1 month ago, CAD-CABG, Abn EKG, Smoker 2D Dimensions IVSd 1.07 cm M: 0.6-1.2 LVEF (Visual) 65.10 % PWd 1.08 cm M: 0.6 - 1.2 LA Volume 43.40 mL LVDd 4.82 cm M: 4.2 - 5.9 LA Volume Index [id number] mL/m2 (M/F) 16-34 LVDs 3.10 cm M: 2.5 - 4.0 Left Atrium 3.53 cm M: 3.0 - 4.0 M-Mode Dimensions LA Diam 3.65 cm (1.9-4.0) EPSs 0.80 cm TAPSE 1.52 (<1.7) LV Diastology E Decel Time 197 (160-240 msec) E/A Ratio 1.03 MED A' 9.70 cm/s LAT A' 10.40 cm/s Aortic Valve CHOLO Index 1.02 cm2/m2 AoV Peak [place]. 152.0 (50-130 cm/s) AO Peak GR. 9.30 mmHg AO Mean GR. 4.60 (<5 mmHg) AO VTI 32.6 (18-25 cm) CHOLO (VTI) 2.50 (2.5-4.5 cm2) Mitral Valve MV A Velocity 65.0 (40-130 cm/s) E/A Ratio 1.03 Tricuspid Valve TR P. Velocity 253.00 cm/s RAP Estimate 10.00 mmHg RVSP 35.60 mmHg Left Ventricle The left ventricle is normal size. The left ventricular systolic function is normal. The left ventricular ejection fraction is within the normal range. There is increased LV wall thickness. There is normal LV segmental wall motion. The left ventricular diastolic function is normal. LVEF is 55%. Right Ventricle The right ventricle is normal size. The right ventricular systolic function is normal. Atria Left atrium is mildly dilated. The right atrium size is normal. There is no Doppler evidence of interatrial shunt. Aortic Valve The aortic valve is mildly thickened. There is no aortic valvular stenosis. Trace aortic regurgitation. Mitral Valve The mitral valve is normal in structure. No evidence of mitral valve stenosis. Trace mitral regurgitation. Tricuspid Valve Tricuspid valve is grossly normal in structure and function. Trace tricuspid regurgitation. Pulmonic Valve Pulmonic valve is grossly normal in structure. Trace pulmonic regurgitation. Great Vessels The aortic root is normal in size. IVC is normal in size and collapses >50% with inspiration. Pericardium There is no pericardial effusion. Other Information Study Quality: Fair Conclusion Normal biventricular systolic function. Mild LA dilation. No significant valvular stenosis or regurgitation. Electronically signed by : Alma Sen MD 01/09/2025 14:31:50
== END 2025-01-09 23:59 | disposition home or self-care (01) ==
PROVIDERS: PCP Internal Medicine; Visit Provider Physician Assistant
DX: I51.7 Cardiomegaly (principal); R07.89 Other chest pain; I25.118 Atherosclerotic heart disease of native coronary artery with other forms of angina pectoris
CPT/HCPCS: 93306

== ENCOUNTER 2025-01-11 08:47 | Day surgery (SDC) | payer MEDICARE, SELFPAY ==
[2025-01-11] VITALS (10 sets, daily range): BP systolic 120–149; BP diastolic 59–72; PULSE 66–80; RESP 16–18; TEMP 36.6–36.9; O2SAT 93–96; BMI 33.6
--- NOTE | 2025-01-11 07:07 | IR_ITS ---
APPROVED REPORT Patient Location: Outpatient PROCEDURES Left femoral arterial access Catheter placement right popliteal artery Right popliteal artery antegrade angiogram Attempted angioplasty of a chronically occluded right popliteal artery Catheter placement in the right common iliac artery Right common iliac artery selective angiogram Bare-metal stent deployment to the ostial proximal segment of the right common iliac artery INDICATION [place] claudication class IV, Occluded right popliteal artery, 60 mm gradient from the aorta to the right common femoral artery, Right common iliac artery stenosis Informed consent was obtained prior to the procedure. COMPLICATIONS NONE Estimated Blood Loss: LESS THAN 10 ML TECHNIQUE 1% lidocaine used to anesthetize the left femoral groin. The left femoral artery was accessed via the Seldinger technique. A 5 Upper Sorbian sheath was placed in the left femoral artery. A rim catheter was advanced to the distal abdominal aorta and an advantage wire was placed distally into the right superficial femoral artery and then advanced under fluoroscopic guidance. Angiography was performed. This was repeated at the popliteal level. Therapeutic heparin was then administered giving a therapeutic ACT. There was a demonstrable 60 mm gradient between the aorta and the right common femoral artery upon passage of the sheath. An advantage wire and a trailblazer catheter was used to push through the chronic occlusion in the distal SFA going into the popliteal artery. This was densely calcified and heavily atheromatous. 2 cm proximal to the reconstitution of the popliteal artery the wire left the vessel and recanalization of the true or false lumen cannot be obtained. At this point it was decided to abandon the reconstitution of the popliteal artery and focus on the common iliac artery. Catheter was pulled back and an 8 mm x 57 mm bare-metal balloon mounted stent was deployed at 15 [place] reducing the severe stenosis to 0%. The sheath was advanced and there was no demonstrable gradient across the lesion. Excellent angiograph results were obtained. At the end of procedure the apparatus was removed the groin is reprepped closure change sheath was removed and hemostasis was achieved using Perclose device patient was transferred to the postop putting in stable condition ANGIOGRAPHIC RESULTS Right common iliac artery has an ostial 70 to 80% calcified stenosis followed by a distal 50% stenosis. Right internal iliac artery is patent Right external iliac artery is patent Right common femoral artery is atheromatous but patent Right profunda femoris artery is patent Right superficial femoral artery has heavy atheromatous plaque from the ostial segment down to the midportion and is occluded at Martinez's canal. It reconstitutes at the patellar space back into the popliteal artery. 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 Plavix and aspirin 2. For the time being I believe the culprit for the right lower limb claudication was the common iliac artery. Ideally I would like to treat the chronically occluded popliteal artery medically. By increasing inflow this should resolve most of patient's claudication 3. Patient has extensive atheromatous debris. I am concerned about the relatively normal KELLY. I suspect bilateral subclavian artery stenosis may be present. 4. Recommend upper extremity CTA 5. Patient almost certainly has Eva vascular disease and I recommend full ischemic cardiac workup 6. LDL less than 55 to be 2 that high intensity statin 7. If patient continues to experience intolerable claudication he can revisit opening the popliteal artery. I do believe the claudication will be much improved and acceptable now the iliac artery stenosis is resolved Electronically signed by : Tony Momin MD 01/11/2025 12:56:11
[2025-01-11 09:13] LABS: Basophils # 0.1 K/mm3 (0-0.2); Basophils % 0.6 % (0.1-2.0); Eosinophils # 0.4 Kmm3 (0.0-0.4); Eosinophils % 3.2 % (0.1-12.0); Hematocrit 44.6 % (42.0-52.0); Hemoglobin 14.8 g/dL (14.1-18.0); Lymphocytes # 3.5 K/mm3 (0.7-4.5); Lymphocytes % 30.1 % (10-50); Mean Corpuscular HGB Conc 33.2 g/dL (31.8-35.4); Mean Corpuscular Hemoglobin 30.9 pg (27.0-31.2); Mean Corpuscular Volume 93.1 fl (80-94); Mean Platelet Volume 12.8 fl (7.4-10.4); Monocytes % 8.8 % (1.7-9.3); Neutrophils # 6.7 K/mm3 (1.8-7.8); Nucleated Red Blood Cells # 0 10^3/uL; Nucleated Red Blood Cells % 0 %; Platelet Count 168 K/mm3 (142-424); Red Blood Count 4.79 M/mm3 (4.60-6.20); Red Cell Distribution Width 13.8 % (11.5-17.5); Red Cell Distribution Width-SD 47.3 fL; White Blood Count 11.7 K/mm3 (4.8-10.8)
[2025-01-11 09:35] LABS: Chloride 103 mmol/L (98-107); Potassium 4.9 mmoL/L (3.5-5.1); Sodium 137 mmol/L (136-145)
[2025-01-11 09:38] LABS: Anion Gap 17.9 mEq/L (5-15); Blood Urea Nitrogen 16 mg/dl (9-20); Carbon Dioxide 21 mmol/L (22.0-30.0); Creatinine Clearance Estimated 112 mL/min (50-200); Estimated Glomerular Filt Rate 68 ml/min (>60); GFR (African American) 82 ML/MIN (>60)
[2025-01-11 09:39] LABS: Glucose 101 mg/dl (74-100)
[2025-01-11] MEDS: HEPARIN 1,000 UNITS/500ML NS (CATH LAB) 3000 UNIT IV (11:12)
[2025-01-11] MEDS: 0.9 % SODIUM CHLORIDE 500 ML 25 ML IV (11:12)
[2025-01-11] MEDS: NITROGLYCERIN 800MCG/8ML SYR (CATH LAB) 800 MCG IA (11:15)
[2025-01-11] MEDS: diphenhydrAMINE 50MG/ML VIAL 50 MG IV (11:15)
[2025-01-11] MEDS: LIDOCAINE 1% 10ML MDV 10 ML IJ (11:17)
[2025-01-11] MEDS: HEPARIN 1,000 UNITS/ML 10ML VIAL (CATH LAB) 5000 UNIT IV (11:57)
[2025-01-11] MEDS: MIDAZOLAM HCL 1MG/ML 5ML VIAL 1 MG IV (12:26)
[2025-01-11] MEDS: FENTANYL 100MCG/2ML VIAL 50 MCG IV (12:27)
[2025-01-11] MEDS: PROPOFOL 10MG/ML 20ML VIAL 40 MG IV (12:35)
[2025-01-11] MEDS: CLOPIDOGREL 300MG TABLET 300 MG PO (12:52)
[2025-01-11] MEDS: IOHEXOL-240 100ML BOTTLE 180 ML IV (13:19)
[2025-01-11 13:21] LABS: CATHL Activated Clotting Time > 400 SEC (74-125)
== END 2025-01-11 14:29 | disposition home or self-care (01) ==
PROVIDERS: PCP Internal Medicine; Visit Provider Internal Medicine
DX: I70.218 Atherosclerosis of native arteries of extremities with intermittent claudication, other extremity (principal); I74.3 Embolism and thrombosis of arteries of the lower extremities; I77.1 Stricture of artery; R00.1 Bradycardia, unspecified; I70.298 Other atherosclerosis of native arteries of extremities, other extremity; R94.31 Abnormal electrocardiogram [ECG] [EKG]; I70.90 Unspecified atherosclerosis; R09.89 Other specified symptoms and signs involving the circulatory and respiratory systems; I10 Essential (primary) hypertension; E78.5 Hyperlipidemia, unspecified; Z95.1 Presence of aortocoronary bypass graft; I25.118 Atherosclerotic heart disease of native coronary artery with other forms of angina pectoris; Z95.820 Peripheral vascular angioplasty status with implants and grafts; F17.210 Nicotine dependence, cigarettes, uncomplicated; Z79.01 Long term (current) use of anticoagulants
CPT/HCPCS: 37221; 80048; 85025; 85347; 99152; 99153; C1725; C1760; C1766; C1769; C1876; C1894; J1200; J1644; J3010; Q9966

== ENCOUNTER 2025-03-26 12:05 | Outpatient (CLI) | payer MEDICARE, SELFPAY ==
--- OUTSIDE RECORDS SUMMARY | 2025-02-26 10:23 | XMS_ITS | Encounter Summary ---
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) Atherosclerosis of anvik artery of right lower extremity Procedures FL BYP OTH/THN VEIN FEMORAL-POPLITEAL FL BYPASS W/VEIN FEMORAL-POPLITEAL FL TEAEC W/WO PATCH GRAFT COMMON FEMORAL CREATION, BYPASS, ARTERIAL, FEMORAL TO POPLITEAL, USING GRAFT Junior Franklin MD [address] [place] [address] Phone: tel: fax: Referral ID Status Reason Start Date Expiration Date Visits Re quested Visits Authorized [id number] 02/19/2025 1 3 Encounter Details Date Type Department Care Team (Latest Contact Info) Description 02/26/2025 10:23 AM EDT - 02/28/2025 5:53 PM EDT Hospital Encounter [facility] [id number] [facility] [address] [place] [address] Junior Franklin MD [address] [place] [address] 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) Discharge Disposition: Home or Self Care Social History Tobacco Use Types Packs/Day Years Used Date Smoking Tobacco: Every Day Cigarettes Smokeless Tobacco: Never Alcohol Use Standard Drinks/Week Comments Not Currently 0 (1 standard drink = 0.6 oz pur e alcohol) sober since 2019 Sex and Gender Information Value Date Recorded Sex Assigned at Not on file Legal Sex Male 3:30 PM CDT Gender Identity Not on file Sexual Orientation Not on file documented as of this encounter Last Filed Vital Signs Vital Sign Reading Time Taken Comments Blood Pressure 85/53 02/28/2025 4:14 PM EDT Pulse 138 02/28/2025 4:14 PM EDT Temperature 36.8 C (98.2 F) 02/28/2025 4:14 PM EDT Respiratory Rate 18 02/28/2025 4:14 PM EDT Oxygen Saturation 77% 02/28/2025 4:14 PM EDT Inhaled Oxygen Concentration - - Weight 107 kg (235 lb 12.8 oz) 02/26/2025 11:06 AM EDT Height - - Body Mass Index 31.98 02/21/2025 9:13 AM EDT documented in this encounter Discharge Summaries * Chica Hernadez APRN - 02/28/2025 5:00 PM EDT Images from the original note were not included. VASCULAR SURGERY DISCHARGE SUMMARY Date of Discharge: - 02/28/2025 Discharge Diagnosis: - Right lower extremity critical limb ischemia - Post-op urinary retention, resolved - Post-op leukocytosis - Hypertension - Hyperlipidemia - COPD - Peripheral vascular disease - CAD - s/p CABG, s/p coronary artery stent 2017 - Hx ID - Legally blind - Nicotine use - Obesity Hospital Course Patient is a 64 y.o. male presented with right critical limb ischemia presenting for open femoral endarterectomy with femoral to below-knee popliteal artery bypass after failed endovascular revascularization. After informed consent was given, he was taken to the operating room where he underwent a Right femoral endarterectomy; Right femoral to below-knee popliteal artery bypass with 6 mm externally ringed PTFE on 02/26/[address] Franklin. Post procedure, he was admitted to our service in the ICU for monitoring and pain management and subsequently transferred to the floor the following day. He did experience some post-op urinary retention requiring temporary michel catheter that has since been removed at time of discharge and has been able to successfully urinate on his own. His pain has beencontrolled and has tolerated his diet and activity well. PT evaluated him prior to DC and a walker was ordered/obtained for him prior to DC. His stable and ready for discharge home. He will need to follow-up outpatient in our office after discharge. Procedures Performed -Right femoral endarterectomy - Right femoral to below-knee popliteal artery bypass with 6 mm externally ringed PTFE Consults: - pulmonary critical care - urology - PT Pertinent Test Results: Results for orders placed or performed during the hospital encounter of 02/26/25 (from the past 24 hours) ECG 12 lead Status: None (In process) Collection Time: 02/27/25 5:13 PM Result Value Ref Range VENTRICULAR RATE EKG/MIN 91 BPM ATRIAL RATE (MCT) 0 BPM QRS-INTERVAL (MSEC) 134 ms QT Interval 402 ms QTC Interval 494 ms R AXIS (MCT) -19 degrees [place] 40 degrees [place] Diagnosis Wide QRS rhythm Right bundle branch block Abnormal ECG No previous ECGs available CALCIUM Ionized Status: Abnormal Collection Time: 02/28/25 5:08 AM Result Value Ref Range Calcium Ionized 0.97 (L) 1.12 - 1.32 mmol/L CBC with automated diff Status: Abnormal Collection Time: 02/28/25 8:19 AM Result Value Ref Range WBC 9.9 (H) 4.2 - 9.1 K/??L RBC 3.27 (L) 4.63 - 6.08 M/??L Hemoglobin 10.1 (L) 13.7 - 17.5 GM/DL Hematocrit 30.7 (L) 40.1 - 51.0 % MCV 94 (H) 79 - 92 fL MCH 30.9 25.7 - 32.2 pg MCHC 32.9 32.3 - 36.5 GM/DL RDW 13.2 11.6 - 14.4 % Platelets 164 140 - 375 K/CU MM MPV 11.2 9.4 - 12.4 fL % Neutros 70 (H) 34 - 68 % % Lymphs 17 (L) 22 - 53 % % Monos 12 5 - 12 % % Eos 0 (L) 1 - 7 % % Baso 0 0 - 1 % NRBC Absolute <0.01 0 - 0.012 K/ul # Neutros 6.97 (H) 1.78 - 5.38 K/??L # Lymphs 1.68 1.32 - 3.57 K/??L # Monos 1.14 (H) 0.30 - 0.82 K/??L # Eos 0.04 0.04 - 0.54 K/??L # Baso <0.03 0.01 - 0.08 K/ L Immature Granulocytes-Relative 0.50 (H) 0.01 - 0.43 % # IG 0.05 (H) 0.00 - 0.03 K/uL Comprehensive metabolic panel Status: Abnormal Collection Time: 02/28/25 8:20 AM Result Value Ref Range Sodium 136 136 - 145 meq/L Potassium 3.9 3.4 - 5.1 meq/L Chloride 103 98 - 112 meq/L CO2 23 22 - 29 meq/L Calcium 8.3 (L) 8.4 - 10.2 mg/dL Glucose 100 82 - 115 mg/dL BUN 17.3 8.4 - 25.7 mg/dL Creatinine 1.02 0.72 - 1.25 mg/dL BUN/Creatinine 17 8 - 20 eGFR (mL/min/1.73m2) 83 >=60 mL/min/1.73m2 Albumin 2.8 (L) 3.5 - 5.0 g/dL Alkaline Phosphatase 66 40 - 150 U/L ALT 9 <=45 U/L AST 17 11 - 34 U/L Total Bilirubin 0.9 0.2 - 1.2 mg/dL Protein, Total 6.4 6.4 - 8.3 g/dL Globulin 3.6 2.5 - 4.1 g/dL Anion Gap 14 (H) 4 - 12 A/G Ratio 0.8 0.7 - 1.9 Osmolality Calc 273.7 mOsm/kg Magnesium Status: Normal Collection Time: 02/28/25 8:20 AM Result Value Ref Range Magnesium 1.7 1.6 - 2.6 mg/dL Phosphorus Status: Normal Collection Time: 02/28/25 8:20 AM Result Value Ref Range Phosphorus 2.7 2.5 - 4.5 mg/dL Radiology Results (last 7 days) Procedure Component Value Units Date/Time XR chest AP portable [[id number]] Collected: 02/28/25939 Order Status: Completed Updated: 02/28/25941 Narrative: CHEST ONE VIEW HISTORY: Abnormal cardiovascular exam , shortness of breath COMPARISON: 02/27/2025 FINDINGS: No acute pulmonary opacity is present. There is no evidence of effusion or pneumothorax. There is evidence of prior median sternotomy, presumably from CABG. Otherwise, mediastinum is unremarkable. Heart size is normal. Impression: Unremarkable chest, status post CABG. XR chest AP portable [[id number]] Collected: 02/27/25 1105 Order Status: Completed Updated: 02/27/25 1123 Narrative: PORTABLE CHEST 02/27/2025 9:54 AM HISTORY: Shortness of breath. COMPARISON: None. FINDINGS: The heart is normal in size . The mediastinum is unremarkable . Diffuse interstitial changes are probably chronic . The lungs are otherwise clear . There is no pneumothorax . The osseous structures are unremarkable . The patient is status post median sternotomy. Impression: No acute cardiopulmonary process . Continued follow-up is recommended . Images reviewed, interpreted, and dictated by Dr. Yandel Mccarthy. Transcribed by Rima Ko PA-C. Condition on Discharge: - Stable Vital Signs Temp: [98.2 ??F (36.8 ??C)-100.2 ??F (37.9 ??C)] 98.2 ??F (36.8 ??C) Pulse: [91-138] 138 Resp: [16-20] 18 BP: (84-130)/(44-61) 85/53 Physical Exam: Gen: awake, elderly white male; up to chair HEENT: pink conjunctiva, MMM Lungs: normal respiratory effort on RA Heart: reg s1, s2 Abd: soft, obese : no michel Ext: RLE edema; right groin aquacel dressing CDI; right medial lower extremity aquacel dressing CDI; +pedal pulses via doppler; +motor intact Skin: Exposed skin warm Neuro: follows simple commands Psych: appropriate mood Discharge Disposition - Home Discharge Medications Medication List START taking these medications apixaban 2.5 mg Tab tablet Commonly known as: ELIQUIS Take 1 tablet (2.5 mg total) by mouth 2 (two) times daily. bethanechol 10 MG tablet Commonly known as: URECHOLINE Take 1 tablet (10 mg total) by mouth 3 (three) times daily for 5 days. oxyCODONE-acetaminophen 5-325 mg per tablet Commonly known as: PERCOCET Take 1 tablet by mouth every 4 (four) hours as needed for pain for up to 18 days Look-alike/Sound-alike medication. Max Daily Amount: 6 tablets tamsulosin 0.4 mg Cap 24 hr capsule Commonly known as: FLOMAX Take 1 capsule (0.4 mg total) by mouth daily for 14 days. Start taking on: March 01, 2025 CONTINUE taking these medications albuterol 90 mcg/actuation inhaler aspirin 325 MG tablet atorvastatin 40 MG tablet Commonly known as: LIPITOR Claritin 10 mg tablet Generic drug: loratadine clopidogreL 75 mg tablet Commonly known as: PLAVIX docusate sodium 100 MG capsule Commonly known as: COLACE metoprolol succinate 50 MG 24 hr tablet Commonly known as: TOPROL-XL multivitamin per tablet * omeprazole 20 MG capsule Commonly known as: PriLOSEC * omeprazole 20 mg Tbec Take 20 mg by mouth nightly. valsartan-hydrochlorothiazide 320-25 mg per tablet Commonly known as: DIOVAN-HCT * This list has 2 medication(s) that are the same as other medications prescribed for you. Read thedirections carefully, and ask your doctor or other care provider to review them with you. STOP taking these medications cilostazoL 100 MG tablet Commonly known as: PLETAL Where to Get Your Medications These medications were sent to [facility] [address] [place] [address] - [address] [address] apixaban 2.5 mg Tab tablet bethanechol 10 MG tablet oxyCODONE-acetaminophen 5-325 mg per tablet tamsulosin 0.4 mg Cap 24 hr capsule Information about where to get these medications is not yet available Ask your nurse or doctor about these medications omeprazole 20 mg Tbec Discharge Diet: - Resume normal diet Activity at Discharge: - No heavy lifting over 10 pounds - May resume normal diet - May shower, but keep operative site clean and dry - No driving until 24 hours after pain medication - If an appointment has not been given to you upon discharge then please call our office Follow-up Appointments Junior Noemi MD Vascular Surgery Surgery General Surgery [phone] [address] [place] [address] Next Steps: Schedule an appointment as soon as possible for a visit in 2 week(s) Instructions: F/U outpatient in our office in 2 weeks with ABIs - someone from our office will callyou with your appt time, but if you do not hear from someone in the next 2-3 business days, please reach out to our office. DC time >30 mins Chica Hernadez APRN 02/28/25 5:00 PM documented in this encounter Medications at Time of Discharge aspirin 325 MG tablet Take 1 tablet (325 mg total) by mouth daily. atorvastatin (LIPITOR) 40 MG tablet Take 1 tablet (40 mg total) by mouth nightly. 11/28/2024 clopidogreL (PLAVIX) 75 mg tablet Take 1 tablet (75 mg total) by mouth daily. docusate sodium (COLACE) 100 MG capsule Take 1 capsule (100 mg total) by mouth daily. loratadine (Claritin) 10 mg tablet Take 1 tablet (10 mg total) by mouth daily. metoprolol succinate (TOPROL-XL) 50 MG 24 hr tablet Take 1 tablet (50 mg total) by mouth daily. 01/03/2025 multivitamin per tablet Take 1 tablet by mouth daily. valsartan-hydroch lorothiazide (DIOVAN-HCT) 320-25 mg per tablet Take 1 tablet by mouth daily. albuterol 90 mcg/actuation inhaler Inhale 2 puffs by mouth every 6 (six) hours as needed for wheezing. apixaban (ELIQUIS) 2.5 mg tab tablet Take 1 tablet (2.5 mg total) by mouth 2 (two) times daily. 60 tablet 02/28/2025 omeprazole (PriLOSEC) 20 MG capsule Take 1 capsule (20 mg total) by mouth daily. omeprazole 20 mg TbEC Take 20 mg by mouth nightly. 02/28/2025 bethanechol (URECHOLINE) 10 MG tablet Take 1 tablet (10 mg total) by mouth 3 (three) times daily for 5 days. 15 tablet 02/28/2025 03/05/2025 oxyCODONE-acetami nophen (PERCOCET) 5-325 mg per tablet Take 1 tablet by mouth every 4 (four) hours as needed for pain for up to 18 days Look-alike/ Sound-alike medication. Max Daily Amount: 6 tablets 20 tablet 02/28/2025 03/18/2025 tamsulosin (FLOMAX) 0.4 mg cap 24 hr capsule Take 1 capsule (0.4 mg total) by mouth daily for 14 days. 14 capsule 03/01/2025 03/15/2025 documented as of this encounter Progress Notes * Milvia Portillo, PT - 02/28/2025 12:50 PM EDT Images from the original note were not included. Inpatient Physical Therapy Initial Evaluation Patient Name: Tricia Larkin Date of : 1960 Date of Evaluation: 02/28/25 In Time 1250 Out Time 1323 Session Duration 33 minutes Time spent for nursing collaboration, chart and systems review, and clinical reasoning. 8 minutes Total Time 41 minutes Pt is a 64 y.o. 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 Past Medical History: Diagnosis Date Coronary artery disease GERD (gastroesophageal reflux disease) History of ID (myocardial infarction) Hyperlipidemia Hypertension Limb ischemia PVD (peripheral vascular disease) ([facility]) Past Surgical History: Procedure Laterality Date ANGIOPLASTY / STENTING ILIAC BYPASS,FEMORAL-POPLITEAL Right 02/26/2025 Procedure: (RIGHT FEMORAL TO POPLITEAL ARTERY BYPASS GRAFT); Surgeon: Junior Noemi MD; Location:[facility]; Service: Vascular Surgery; Laterality: Right; CATARACT EXTRACTION, BILATERAL CORONARY ANGIOPLASTY WITH STENT PLACEMENT CORONARY ARTERY BYPASS GRAFT 1990s HERNIA REPAIR General Visit type: Initial Evaluation Approved by: Nurse Fernández Patient Disposition Upon Entry: Supine in bed, Call Light/Pull Cord in reach, All needs met and within reach, Nursing aware/notified, HOB >30 degrees, Side rails up Patient Verified By: Name and Date of Assisted by: ep technologist Precautions Weight-Bearing Status: No Restrictions Precautions: Fall risk ; legally blind Isolation Precautions: Standard Lines, tubes, drains, airway: peripheral IV Subjective Subjective: Patient agreeable to physical therapy evaluation and treatment. Patient goal: Go home today. Pain No - Patient not reporting pain at this time Comment: Patient reported soreness, not pain, in right leg. Cognition Overall cognitive status: Patient is awake and alert, attending to directions appropriately, demonstrating good problem solving skills, and aware of any deficits or impairments, if present. Orientation Level: Oriented x4 Following commands: Able to follow commands appropriately with verbal cueing Safety Judgment: Good awareness of safety precautions Home Living Lives with: Alone, Comment: but may stay with his daughter upon hospital discharge Home Type: Apartment Home Layout: One level Stairs to enter: 5 step(s), bilateral handrails Stairs inside home: none Home Equipment: None Functional Mobility PLOF: Patient reports being complete independent with all functional mobility prior to onset. Activities of Daily Living PLOF: Patient reports being complete independent with all ADL's prior toonset. Fall History: No, patient denies any falls over the last 6 months. Objective Vitals Pre-intervention vitals Heart rate: 91 beats per minute SpO2: 93% room air Post-intervention vitals Heart rate: 107 beats per minute SpO2: 94% room air Basic Strength Assessment Bilateral Lower Extremity Strength: LLE RLE Hip Flexion 4/5 3+/5 Hip Abduction 4/5 3+/5 Hip Adduction 4/5 3+/5 Knee Flexion 4/5 4/5 Knee Extension 4/5 4-/5 Ankle Dorsiflexion 4/5 4/5 Ankle Plantar Flexion 4/5 4/5 BUE strength 4/5 upon MMT Range of Motion Assessment WFL LLE WFL RLE Sensation Intact to light touch BLE Coordination Tapping (foot): LLE (4) Normal performance, RLE (4) Normal performance Functional Mobility Bed Mobility Supine to Sit: minimal assistance, HOB elevated, use of bed features Transfers Sit to Stand: contact guard assist, gait belt used, rolling walker used Stand to Sit: contact guard assist, gait belt used, rolling walker used Gait Gait Assistance: contact guard assist Assistive Device: Gait Belt, Rolling walker Distance: 375 feet Gait speed: initially fast shawn, but decreased with cues Deviation(s): right decreased stance time, increased trunk flexion Stair Management Number of Stairs: 2 Handrail Use: left railing rail when ascending, left railing rail when descending Stair Management Assistance: contact guard assist Stair Management Devices: Gait Belt Stair Management Technique: step-to pattern, ascending leading with LLE and descend leading with RLE Wheelchair Mobility Not assessed, patient ambulatory. Outcome Measures [facility] Basic Mobility Inpatient Short Form How much difficulty does the patient currently have: Turning over in bed (including adjusting bedclothes, sheets, and blankets)? (1) Total/Unable (not able to do the activity or can only perform the activity using assistive devices or requires assistance from another person, including supervision or cueing for safety) Sitting down on and standing up from a chair with arms (e.g., wheelchair, bedside commode, etc.)? (1) Total/Unable (not able to do the activity or can only perform the activity using assistive devices or requires assistance from another person, including supervision or cueing for safety) Moving from lying on back to sitting on side of bed? (1) Total/Unable (not able to do the activity or can only perform the activity using assistive devices or requires assistance from another person,including supervision or cueing for safety) How much help from another person does the patient currently need: Moving to and from a bed to a chair (including a wheelchair)? (3) A little (Minimal/Contact guard/Supervision/Setup) Need to walk in hospital room? (3) A little (Minimal/Contact guard/Supervision/Setup) Climbing 3-5 steps with a railing? (3) A little (Minimal/Contact guard/Supervision/Setup) Score Raw score=12 t-Scale score=35.33 Standard error=3.08 CMS 0-100%=68.66% MDC=4.72 A raw score of >= 16 is significantly associated with increased odds of discharge to home in addition to consideration made for the patient's cognition and social determinants of health. Balance Static/dynamic sitting and static/dynamic standing balance grades Balance Grade Sitting Static Normal - patient able to maintain steady balance without handhold support Sitting Dynamic Good - patient accepts moderate challenge; able to maintain balance while picking object off floor Standing Static Good - patient able to maintain balance without handhold support, limited postural sway Standing Dynamic Fair - patient accepts minimal challenge; able to maintain balance while turning head/trunk Activity Tolerance Patient tolerated activity/intervention well with no complaints or adverse events. Treatment Bed mobility training for supine>sit with min A for support at trunk to come to full seated position at EOB with cues for technique and use of bed rail. Transfer training sit<>stand from bedand chair with rolling walker and contact guard assist for safety and cues to facilitate proper technique/hand placement to push up to stand instead of pulling to stand to walker and reaching back to sit to eccentrically control transition for fall risk reduction. Gait training performed with pt ambulating 375 feet with rolling walker and contact guard assist for safety and cues to facilitate proper/safe use of walker, slower shawn, erect posture; patient also trained to increase weight on hands on walker to decrease weight bearing on RLE. Pt demonstrated antalgic gait RLE. Pt was positioned in chair at end of session with lunch tray set up. Assessment At baseline, patient was independent with functional mobility. Patient presenting with decreased activity tolerance, generalized weakness with functional activities, fatigue with physical exertion, and pain limiting function. Because of this, patient would have difficulty with independently performing bed mobility, transferring, ambulating on level surfaces, ambulating on uneven surfaces, negotiating stairs, cooking, cleaning, and job coach. These functional limitations put the patient at an increased risk for loss of independence with functional mobility and activities of daily living, falling, caregiver burden, and deconditioning. Recommend discharge to home with continued therapy and use of rolling walker for safe mobility. Patient would benefit from skilled physical therapy services during length of stay for strengthening, balance training to decrease risk of falling, endurance training to improve activity tolerance, stair training, gait training, transfer training, progress ion of mobility, and assistive device training. Problems: Decreased functional mobility, Decreased gait tolerance, Decreased strength, Decreased activity tolerance, Impaired dynamic balance, Gait impairment Rehab potential: Good for stated goals Plan Treatment Plan: Therapeutic Exercise, Therapeutic Activity, Gait Training, Transfer Training, StairTraining, Strengthening, Home Exercise Program, Patient/Family/Caregiver Education, DME Recommendations PT Frequency/Duration: 5x/week for 14 days Recommendations Discharge recommendations: Discharge home/prior living situation. Patient would benefit from continued therapy services. DME recommendations: Patient would benefit from the use of a Rolling walker upon discharge. Per thepatient, the patient does not have access to the recommended DME/adaptive equipment. Goals [id number]: By the target date, patient will perform [id number] with complete independence, utilizing no assistive device, to improve independence with bed mobility. [id number]: By the target date, patient will perform sit to stand with modified independence and rolling walker to improve independence with functional mobility and decrease risk of falling. Gait: Patient will ambulate 375' with modified independence and utilizing rolling walker in order to improve balance with ambulation and decrease risk of falling Stairs: By the target date, patient will negotiate 5 step(s), with a step-to pattern, utilizing bilateral railing and supervision, to demonstrate ability to safely negotiate stairs at home. OTHERGOAL1: Patient will perform teach back of LE Strengthening HEP. Target Date: 03/14/2025 Goals were discussed with patient Education Patient educated on safety, use of call button, role of physical therapy, plan of care, ambulation,transfers, bed mobility, adaptive equipment, proper positioning and balance required for functionalmobility tasks, and stair negotiation and following, they were able to verbalize and demonstrate und erstanding. No further questions or concerns stated. Interdisciplinary Communication Following treatment, therapist communicated with nursing and case assistant by completing communication whiteboard in room, regarding patient's performance during physical therapy session, and regarding DME needs for patient. Patient Disposition Upon Leaving Patient in bedside chair, Call Light/Pull Cord in reach, All needs met and within reach, Nursing aware/notified, Feet elevated, lunch tray set up If this patient discharges prior to next therapy session, this note serves as the patient's discharge summary. Electronically signed by Milvia Portillo PT - 02/28/25 - 2:04 PM EDT PT Evaluation Completed * Chica Hernadez APRN - 02/27/2025 1:18 PM EDT VASCULAR SURGERY PROGRESS NOTE Subjective Seen in ICU -- resting in bed -- has not been up with therapy yet. Reports pain controlled. Denies SOA -- still on O2. Has had some post-op urinary retention with michel placed -- will try voiding trial prior to DC. Objective Last Recorded Vitals Blood pressure 124/63, pulse 75, temperature 98.9 ??F (37.2 ??C), temperature source Oral, resp. rate 18, weight 107 kg (235 lb 12.8 oz), SpO2 97%. Physical Exam Gen: awake, elderly white male; resting in bed; seen in ICU HEENT: pink conjunctiva, MMM Lungs: normal respiratory effort on supplemental O2 Heart: reg s1, s2 Abd: soft, obese : michel cath anchored with yellow urine Ext: RLE edema; right groin aquacel dressing CDI; right medial lower extremity aquacel dressing CDI; +pedal pulses via doppler; +motor intact Skin: Exposed skin warm Neuro: follows simple commands Psych: appropriate mood Labs: Results for orders placed or performed during the hospital encounter of 02/26/25 (from the past 24 hours) CBC (Hemogram only) Status: Abnormal Collection Time: 02/27/25 2:45 AM Result Value Ref Range WBC 11.4 (H) 4.2 - 9.1 K/??L RBC 3.58 (L) 4.63 - 6.08 M/??L Hemoglobin 11.1 (L) 13.7 - 17.5 GM/DL Hematocrit 33.6 (L) 40.1 - 51.0 % MCV 94 (H) 79 - 92 fL MCH 31.0 25.7 - 32.2 pg MCHC 33.0 32.3 - 36.5 GM/DL RDW 13.3 11.6 - 14.4 % Platelets 193 140 - 375 K/CU MM MPV 11.2 9.4 - 12.4 fL Basic Metabolic Panel Status: Abnormal Collection Time: 02/27/25 2:45 AM Result Value Ref Range Sodium 135 (L) 136 - 145 meq/L Potassium 4.3 3.4 - 5.1 meq/L CO2 22 22 - 29 meq/L Chloride 105 98 - 112 meq/L Glucose 106 82 - 115 mg/dL BUN 15.7 8.4 - 25.7 mg/dL Creatinine 1.01 0.72 - 1.25 mg/dL BUN/Creatinine 16 8 - 20 Calcium 8.4 8.4 - 10.2 mg/dL Anion Gap 12 4 - 12 eGFR (mL/min/1.73m2) 84 >=60 mL/min/1.73m2 Osmolality Calc 271.6 mOsm/kg XR chest AP portable Narrative: PORTABLE CHEST 02/27/2025 9:54 AM HISTORY: Shortness of breath. COMPARISON: None. FINDINGS: The heart is normal in size . The mediastinum is unremarkable . Diffuse interstitial changes are probably chronic . The lungs are otherwise clear . There is no pneumothorax . The osseous structures are unremarkable . The patient is status post median sternotomy. Impression: No acute cardiopulmonary process . Continued follow-up is recommended . Images reviewed, interpreted, and dictated by Dr. Yandel Mccarthy. Transcribed by Rima Ko PA-C. Assessment - Right lower extremity critical limb ischemia - s/p Right femoral endarterectomy; Right femoral to below-knee popliteal artery bypass with 6 mm externally ringed PTFE on 02/26/[address] Franklin - Post-op urinary retention - Post-op leukocytosis - Hypertension - Hyperlipidemia - COPD - Peripheral vascular disease - CAD - s/p CABG, s/p coronary artery stent 2017 - Hx ID - Legally blind - Nicotine use - Obesity Plan - continue ASA, plavix - add eliquis 2.5mg PO BID - keep michel for today -- will try voiding trial when he is more ambulatory and prior to DC - add flomax & bethanechol - PT - pain control PRN - encourage IS use - supplemental O2 -- wean as tolerated - OK to transfer to floor with telemetry - please call for any further vascular concerns Discharge Planning: Home next 1-2 days * Iggy Felipe MD - 02/27/2025 9:32 AM EDT Pulm/CC Consultation: Date of consultation: 02/26/2025 Reason for consultation: ICU admission Chief complaint: None currently History of present illness: Patient is a 64-year-old gentleman with a history of peripheral vascular disease, coronary artery disease, GERD, hypertension, obesity, and hypertension. Patient presented to the hospital today with known arthrosclerosis of the anvik artery of the right lower extremity with gangrene. Patient went to the operating room with vascular surgery for right femoral endarterectomy and right femoral to below-knee popliteal artery bypass. Postoperatively patient was transferred to the ICU and pulmonary/critical care consulted for ICU admission. Time of evaluation he is awake, alert, followingall commands. States that he has some mild tenderness at his incision site but otherwise is doing we ll. No chest pain, cough, fever, chills. Hemodynamically not requiring vasopressors. On 2 L O2 withadequate saturation. No respiratory complaints. No family present at bedside. =======PROGRESS NOTES 6/4: Patient seen and examined at bed side. On 2 LPM supplemental O2 via NC. Alert and oriented X 3. Labs reviewed. CXR with out any acute any infiltrates. Mild leucocytosis. Mild anemia. Normal platelets. Normal creat with out good UOP. S/p right fem-pop bypass. PAST MEDICAL HISTORY: Past Medical History: Diagnosis Date Coronary artery disease GERD (gastroesophageal reflux disease) History of ID (myocardial infarction) Hyperlipidemia Hypertension Limb ischemia PVD (peripheral vascular disease) (HCC) PAST SURGICAL HISTORY: Allergies: No Known Allergies SOCIAL HISTORY: Social History Tobacco Use Smoking status: Every Day Types: Cigarettes Smokeless tobacco: Never Vaping Use Vaping status: Never Used Substance Use Topics Alcohol use: Not Currently Comment: sober since 2019 Drug use: Never FAMILY HISTORY: family history is not on file. Review of Systems Constitutional: Positive for malaise/fatigue. Negative for fever and weight loss. HENT: Negative for congestion, ear discharge and nosebleeds. Eyes: Negative for blurred vision, double vision and discharge. Respiratory: Positive for cough. Negative for hemoptysis, sputum production, shortness of breath and wheezing. Cardiovascular: Negative for chest pain, orthopnea, leg swelling and PND. Gastrointestinal: Negative for abdominal pain, diarrhea and vomiting. Genitourinary: Negative for hematuria. Musculoskeletal: Negative for joint pain. Skin: Negative for rash. Neurological: Positive for weakness. Negative for speech change, focal weakness, seizures and headaches. Endo/Heme/Allergies: Does not bruise/bleed easily. Psychiatric/Behavioral: The patient is nervous/anxious. The patient does not have insomnia. All other systems reviewed and are negative. Vital Signs Temp: [97.1 ??F (36.2 ??C)-98.9 ??F (37.2 ??C)] 98.9 ??F (37.2 ??C) Pulse: [52-145] 88 Resp: [12-50] 12 BP: (102-182)/(44-88) 122/54 Arterial Line BP 1: (100-195)/(35-110) 139/43 Current: Temp: 98.9 ??F (37.2 ??C) Pulse: 88 Resp: 12 BP: 122/54 SpO2: 96 % 24 Hour: BP Min: 102/54 Max: 182/77 Temp Min: 97.1 ??F (36.2 ??C) Max: 98.9 ??F (37.2 ??C) Pulse Min: 52 Max: 145 Resp Min: 12 Max: 50 SpO2 Min: 86 % Max: 100 % Weight Min: 107 kg (235 lb 12.8 oz) Max: 107 kg (235 lb 12.8 oz) Intake/Output: I/O last 3 completed shifts: In: 1300 [I.V.:1000; IV Piggyback:300] Out: 1000 [Urine:850; Blood:150] Physical Exam Vitals reviewed. Constitutional: General: He is not in acute distress. Appearance: He is obese. He is not ill-appearing. HENT: Head: Normocephalic and atraumatic. Right Ear: External ear normal. Left Ear: External ear normal. Nose: Nose normal. Mouth/Throat: Mouth: Mucous membranes are moist. Eyes: Extraocular Movements: Extraocular movements intact. Conjunctiva/sclera: Conjunctivae normal. Pupils: Pupils are equal, round, and reactive to light. Cardiovascular: Rate and Rhythm: Regular rhythm. Tachycardia present. Pulses: Normal pulses. Heart sounds: No murmur heard. Pulmonary: Comments: Coarse breath sounds bilaterally. Diminished breath sounds at bases. Bilateral rhonchi. No wheezes. No rales. Abdominal: Comments: Abdominal obesity. Soft, nondistended and nontender. Hypoactive bowel sounds. Musculoskeletal: General: No swelling. Normal range of motion. Cervical back: Normal range of motion and neck supple. No tenderness. Right lower leg: No edema. Left lower leg: No edema. Comments: Right Femoral incision site C/D/I, no obvious hematoma visualized Lymphadenopathy: Cervical: No cervical adenopathy. Skin: General: Skin is warm and dry. Findings: No rash. Neurological: General: No focal deficit present. Mental Status: He is alert and oriented to person, place, and time. Mental status is at baseline. Psychiatric: Mood and Affect: Mood normal. Behavior: Behavior normal. Vent / O2 Management: LABS Results for orders placed or performed during the hospital encounter of 02/26/25 (from the past 24 hours) Prepare RBC: 2 Units Status: None (Preliminary result) Collection Time: 02/26/25 11:04 AM Result Value Ref Range Product Identification Red Blood Cells Product Code [id number] Status Information Ready for issue Unit Number [id number] Blood Type 9500 Cross Match Results Compatible ECG 12 lead Status: None (In process) Collection Time: 02/26/25 11:13 AM Result Value Ref Range VENTRICULAR RATE EKG/MIN 75 BPM ATRIAL RATE (MCT) 75 BPM FL Interval 248 ms QRS-INTERVAL (MSEC) 150 ms QT Interval 432 ms QTC Interval 482 ms R AXIS (MCT) -17 degrees [place] 33 degrees [place] Diagnosis Sinus rhythm with 1st degree AV block Right bundle branch block Septal infarct , age undetermined Abnormal ECG No previous ECGs available Type and Screen Status: None Collection Time: 02/26/25 11:27 AM Result Value Ref Range ABO/Rh O Negative Antibody Screen Negative HISTCHK HIST CHECK PERFORMED ABO/RH Confirmation/Retype Status: None Collection Time: 02/26/25 11:29 AM Result Value Ref Range RETYPE O Negative Glucose, Nova Meter Status: Abnormal Collection Time: 02/26/25 11:32 AM Result Value Ref Range POC-GLUCOSE 111 (H) 70 - 110 mg/dL Bottle Capping Machine Operator [id number] CBC (Hemogram only) Status: Abnormal Collection Time: 02/27/25 2:45 AM Result Value Ref Range WBC 11.4 (H) 4.2 - 9.1 K/??L RBC 3.58 (L) 4.63 - 6.08 M/??L Hemoglobin 11.1 (L) 13.7 - 17.5 GM/DL Hematocrit 33.6 (L) 40.1 - 51.0 % MCV 94 (H) 79 - 92 fL MCH 31.0 25.7 - 32.2 pg MCHC 33.0 32.3 - 36.5 GM/DL RDW 13.3 11.6 - 14.4 % Platelets 193 140 - 375 K/CU MM MPV 11.2 9.4 - 12.4 fL Basic Metabolic Panel Status: Abnormal Collection Time: 02/27/25 2:45 AM Result Value Ref Range Sodium 135 (L) 136 - 145 meq/L Potassium 4.3 3.4 - 5.1 meq/L CO2 22 22 - 29 meq/L Chloride 105 98 - 112 meq/L Glucose 106 82 - 115 mg/dL BUN 15.7 8.4 - 25.7 mg/dL Creatinine 1.01 0.72 - 1.25 mg/dL BUN/Creatinine 16 8 - 20 Calcium 8.4 8.4 - 10.2 mg/dL Anion Gap 12 4 - 12 eGFR (mL/min/1.73m2) 84 >=60 mL/min/1.73m2 Osmolality Calc 271.6 mOsm/kg Radiology Radiology Results (last day) No results found for the last 24 hours. Microbiology: Microbiology Results (last 7 days) No results found for the last 168 hours. ECHO: No results found for this or any previous visit. ASSESSMENT: Pulmonary -Postoperative observation. -Tobacco cigarette smoking, 15+ pack years, ongoing -History of obstructive sleep apnea. CXR reviewed - No atelectasis or infiltrate or effusion Cardiovascular -Critical limb ischemia involving right lower extremity. -Peripheral vascular disease -RLE arthrosclerosis of anvik artery with gangrene -S/p right femoral enterectomy and right femoropopliteal bypass -Coronary artery disease - S/p CABG -Hypertension Renal: Normal creat. Heme: Leucocytosis. Mild anemia. Normal platelets. General: -Morbid Obesity PLAN: Supplemental oxygen to keep pulse ox above 92%. On 2 L/min supplemental oxygen. NIV/BiPAP support as needed for increased work of breathing or worsening hypoxia. NIV/BiPAP settings: 16/6 and rate of 16. CXR reviewed - No atelectasis or infiltrate or effusion. Titrate down FiO2 as able. At risk for respiratory complications. At risk for hemodynamic instability. DuoNeb every 6 hours as needed. Incentive spirometry to prevent atelectasis. Hemodynamic support: Currently stable. Goal to maintain MAP above 65. If needed add Levophed infusion for goal MAP>65. Uncontrolled hypertension. Cardene infusion as needed to maintain systolic blood pressure less [id number]. Resume oral antihypertensive medications. Patient currently on HCTZ, Toprol-XL and valsartan. IV fluids: LR at 100 mL/h. Vascular surgery following. S/p right femoral popliteal bypass. Antimicrobial therapy: None. Obtain blood cultures if temperature more than 101 ??F. Monitor white count and temperature curve. Monitor lactic acid levels until normalizes. Monitor renal functions and electrolytes. Replace electrolytes to maintain serum potassium of 4.0 and serum magnesium of 2.0 with appropriatereplacement per protocol. Monitor I's and O's strictly. Monitor LFTs Monitor coagulation parameters. Monitor H&H closely. And transfuse for hemoglobin of less than 7 g. Monitor white count and platelets. Nutrition: Full diet as tolerated. Glycemic control to maintain blood sugars between 140-180: SSI before meals and at bedtime and Lantus SQ. Bowel regimen: Docusate and senna as needed for constipation. GI prophylaxis: Protonix. DVT prophylaxis: Eliquis. AM labs ordered. Prognosis: Guarded. At risk for vascular complications Current Code Status Full code Patient seen and examined at bedside. Laboratory studies, imaging studies, other diagnostic studies, and inpatient medications reviewed. Chest imaging studies visualized and reviewed independent of radiologist. Complex case and required high level of medical decision making. Voice marine painter technology ([employer]) is used for dictation of this note and sound-alike words might be erroneously placed despite reviewing the note for accuracy. Errors in dictation may reflect use of voice recognition software and not all errors in marine painter may have been detected prior to signing. * Chaplain Oneal - 02/26/2025 10:50 AM EDT Spiritual Care Progress Note 02/26/25 1050 Clinical Encounter Type Visited With Patient and family Routine Visit Introduction Surgical Visit Pre-op Gnosticism Encounters Gnosticism Needs Prayer Patient Spiritual Care Encounters Coping 5 Family Spiritual Encounters Family Support During Treatment 5 Comments: Pre-surgery visit to patient, his daughter was with him. Patient shared about his surgery, expressed hope that it would restore blood flow to his leg. Prayed with patient and daughter for his surgery and recovery. Chaplain Oneal 02/26/2025 11:46 AM documented in this encounter H&P Notes * Kaylin Martinez PA-C - 02/26/2025 10:25 AM EDT H&P History Of Present Illness Tricia Larkin is a 64 y.o. male with pertinent PMH of HTN, HLD, COPD, CAD s/p CABG & stent plemencemt, and atherosclerosis of anvik artery of right lower extremity with gangrene. Patient has been experiencing right lower extremity foot pain and numbness that worsens when lying down. Patient had a stent placed in the right lower extremity by a sales representative meats for a blockage but has been found tohave another blockage that could be recrossed from the foot. Patient has been conservatively managed but continues to have pain which is negatively impacting activities of daily living. This morning patient denies any acute issues. No f/c/s. No cp, soa. Patient was evaluated by Dr. Franklin and presents today for an elective right femoral to popliteal artery bypass graft. Past Medical History He has a past medical history of Coronary artery disease, GERD (gastroesophageal reflux disease), History of ID (myocardial infarction), Hyperlipidemia, Hypertension, Limb ischemia, and PVD (peripheral vascular disease) ([facility]). Surgical History He has a past surgical history that includes Coronary artery bypass graft; Hernia repair; Cataract extraction, bilateral; Angioplasty / stenting iliac; and Coronary angioplasty with stent. Social History He reports that he has been smoking cigarettes. He has never used smokeless tobacco. He reports that he does not currently use alcohol. He reports that he does not use drugs. Family History His family history is not on file. Allergies Patient has no known allergies. Medications Current Outpatient Medications Medication Instructions aspirin 325 mg, oral, Daily atorvastatin (LIPITOR) 40 mg, Daily cilostazoL (PLETAL) 100 mg, 2 times daily clopidogreL (PLAVIX) 75 mg, oral, Daily docusate sodium (COLACE) 100 mg, oral, Daily loratadine (CLARITIN) 10 mg, oral, Daily metoprolol succinate (TOPROL-XL) 50 mg, Daily multivitamin per tablet 1 tablet, oral, Daily omeprazole 20 mg, oral, Every Night valsartan-hydrochlorothiazide (DIOVAN-HCT) 320-25 mg per tablet 1 tablet, oral, Daily Review of Systems 14 point ROS completed and non-contributory except as listed above Physical Exam There were no vitals taken for this visit. GEN: Alert, awake, NAD HEENT: NCAT, no icterus, no thrush, nares patent, CV: S1S2, no murmur. No LE edema Resp: CTAB, NL Abd: Soft, NT, ND +BS Skin: no rashes on inspection and palpation. Ext: No LE edema. No joint edema, erythema. Neuro: A&O x 3, CN grossly intact Diagnostic Results No visits with results within 1 Day(s) from this visit. Latest known visit with results is: No results found for any previous visit. No image results found. Assessment & Plan 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 -to OR for scheduled procedure BRYON, at risk CAD s/p CABG Status post coronary stent, 2017 -ECG/SPECT 03/30/2022: LVEF 60-64% Bifascicular block Hx ID COPD HTN HLD PVD Legally blind Nicotine dependence documented in this encounter Consult Notes * Vicente Valadez MD - 02/27/2025 12:59 PM EDT Consults urology Attending physician: Junior franklin Other consultants: candy Whaley History of Present Illness: Tricia Larkin is a 64 y.o. male presenting with acute ischemia of his right lower extremity with gangrene and was taken emergently to surgery last night. Nursing staff placed a 14 Bel[place]ian coud?? tip catheter last night. It has been draining clear urine. He gives no prior urologic history. He has had multiple catheters during vascular procedures.. Past Medical History: He has a past medical history of Coronary artery disease, GERD (gastroesophageal reflux disease), History of ID (myocardial infarction), Hyperlipidemia, Hypertension, Limb ischemia, and PVD (peripheral vascular disease) ([facility]). Past Surgical History: He has a past surgical history that includes Coronary artery bypass graft; Hernia repair; Cataract extraction, bilateral; Angioplasty / stenting iliac; Coronary angioplasty with stent; and BYPASS,FEMORAL-POPLITEAL (Right, 02/26/2025). Social History: He reports that he has been smoking cigarettes. He has never used smokeless tobacco. He reports that he does not currently use alcohol. He reports that he does not use drugs. Family History: His family history is not on file. Allergies: Patient has no known allergies. Medications: Medications Prior to Admission Medication Sig Dispense Refill Last Dose/Taking aspirin 325 MG tablet Take 1 tablet (325 mg total) by mouth daily. 02/26/2025 atorvastatin (LIPITOR) 40 MG tablet Take 1 tablet (40 mg total) by mouth nightly. 02/26/2025 at 6:00 AM cilostazoL (PLETAL) 100 MG tablet Take 1 tablet (100 mg total) by mouth 2 (two) times daily. 02/26/2025 at 6:00 AM clopidogreL (PLAVIX) 75 mg tablet Take 1 tablet (75 mg total) by mouth daily. 02/26/2025 at 6:00 AM docusate sodium (COLACE) 100 MG capsule Take 1 capsule (100 mg total) by mouth daily. 02/25/2025 loratadine (Claritin) 10 mg tablet Take 1 tablet (10 mg total) by mouth daily. 02/26/2025 at 6:00 AM metoprolol succinate (TOPROL-XL) 50 MG 24 hr tablet Take 1 tablet (50 mg total) by mouth daily. 02/26/2025 at 6:00 AM multivitamin per tablet Take 1 tablet by mouth daily. 02/25/2025 valsartan-hydrochlorothiazide (DIOVAN-HCT) 320-25 mg per tablet Take 1 tablet by mouth daily. 02/25/2025 albuterol 90 mcg/actuation inhaler Inhale 2 puffs by mouth every 6 (six) hours as needed for wheezing. omeprazole (PriLOSEC) 20 MG capsule Take 1 capsule (20 mg total) by mouth daily. Review of Systems Otherwise none Vitals: Blood pressure 124/63, pulse 75, temperature 98.9 ??F (37.2 ??C), temperature source Oral, resp. rate 18, weight 107 kg (235 lb 12.8 oz), SpO2 97%. Physical Exam White male in the intensive care unit, requesting to go home soon. In no distress. Genitalia penis is normal with indwelling Michel catheter draining clear urine Scrotum normal with normal descended testes. Relevant Results: No relevant images to review. BUN is 15.7 creatinine 1.0 Assessment & Plan Principal Problem: Critical limb ischemia of right lower extremity (HCC) 64-year-old gentleman with acute ischemia of his right lower extremity. Has indwelling Michel catheter is draining clear urine. I would give him a voiding trial whenever he is up and ambulatory. No prior urologic history in this gentleman but he can follow-up in my office as an outpatient in severalweeks after he recovers. Electronically signed by Vicente Valadez MD 02/27/2025 at 1:00 PM documented in this encounter OR Notes * Op Note - Junior Noemi MD - 02/26/2025 3:34 PM EDT PROCEDURE DATE: 02/26/2025 PRE OP DIAGNOSIS: Pre-Op Diagnosis Codes: * 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) [I70.261] POST OP DIAGNOSIS: Post-Op Diagnosis Codes: * 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) [I70.261] SURGEON(S) / SHIFT PRODUCTION ASSOCIATE SURGEON: Surgeons and Role: * Junior Noemi MD - Primary PROCEDURES WITH LATERALITY: Right femoral endarterectomy Right femoral to below-knee popliteal artery bypass with 6 mm externally ringed PTFE ANESTHESIA: General Blood loss: 150cc Specimen: Femoral plaque INDICATIONS: 64 y.o. male with right critical limb ischemia here today for open femoral endarterectomy with femoral to below-knee popliteal artery bypass after failed endovascular revascularization PROCEDURE IN DETAIL: After informed consent was obtained risk and benefits discussed with the patient patient was brought back to the operating table laid in supine position and general anesthesia induced. The patient was prepped and draped in usual sterile fashion, preoperative antibiotics were given and a timeout wasperformed. A transverse incision was made over the femoral artery, femoral artery was dissected outand isolated. Patient had extensive calcification within the right common femoral artery both femoral was given proximal and distal control obtained of the femoral artery longitudinal arteriotomy wasmade and extensive femoral endarterectomy was performed the plaque was removed and we had a good smooth surface into the below knee popliteal artery was then dissected out and isolated. Ringed gore graft was tunneled and proximal anastomosis to femoral artery and distal anastomosis to above knee pop was performed in standard fashion. Incisions were closed in the standard fashion. Patient tolerated the procedure well. Counts were correct extension dressings applied Junior Noemi MD 02/26/2025 3:35 PM documented in this encounter Miscellaneous Notes * Plan of Care - Watson Blount RN - 02/27/2025 11:05 PM EDT Problem: Risk for Falls Goal: No falls during hospitalization Description: Patient will not fall during hospitalization. Outcome: Progressing Problem: Knowledge Deficit Goal: Knowledge - personal safety Description: Patient will verbalize understanding of fall prevention. Outcome: Progressing Problem: Pain Goal: Patient's pain/discomfort is manageable Description: Assess and monitor patient's pain using appropriate pain scale. Collaborate with interdisciplinary team and initiate plan and interventions as ordered. Re-assess patient's pain level after pain management intervention. Outcome: Progressing Problem: Safety Goal: Patient will be injury free during hospitalization Description: Assess and monitor vitals signs, neurological status including level of consciousness and orientation. Assess patient's risk for falls and implement fall prevention plan of care and interventions per hospital policy. Ensure arm band on, uncluttered walking paths in room, adequate room lighting, call light and overbed table within reach, bed in low position, wheels locked, side rails up per policy, and non-skid footwear provided. Outcome: Progressing Problem: Potential for Developing a Blood Clot Goal: Tissue perfusion is adequate - venous Description: Assess and monitor skin color and temperature, skin integrity, pulses, capillary refill, edema, pain in extremities, Homans' sign, labs (D- dimer), and diagnostic tests (ultrasound, CT scan, VQ scan). Monitor for signs and symptoms of deep vein thrombosis (swelling of calf/thigh, redness, pain, tenderness). Monitor for signs and symptoms of pulmonary embolism (dyspnea, tachypnea, tachycardia). Collaborate with interdisciplinary team and initiate plans and interventions as needed Outcome: Progressing Problem: Daily Care Goal: Daily care needs are met Description: Assess and monitor ability to perform self care and identify potential discharge needs. Outcome: Progressing Problem: Potential for Infection Goal: Remains infection free Description: Assess and monitor vital signs, skin (color, moisture, integrity, turgor), respiratorystatus, urinary and gastrointestinal status, and labs (WBC, cultures). Administer antibiotics and antipyretics as ordered. Ensure aseptic care of all intravenous lines, invasive tubes/drains and wounds. Monitor for signs and symptoms of infection (redness, warmth, discharge, increased body temperature). Wash hands properly before and after each patient care activity. Follow isolation guidelines per hospital protocol/policy. Collaborate with interdisciplinary team and initiate plan and interventions as ordered. Outcome: Progressing Problem: Psychosocial Needs Goal: Demonstrates ability to cope with hospitalization/illness Description: Assess and monitor patients ability to cope with his/her illness. Outcome: Progressing Goal: Collaborate with patient/family/caregiver to identify patient specific goals for this hospitalization Outcome: Progressing Problem: Anxiety Goal: Anxiety is at manageable level Description: Assess and monitor patient's anxiety level. Monitor for signs and symptoms of anxiety both physical and emotional (heart palpitations, chest pain, shortness of breath, headaches, nausea,feeling jumpy, restlessness, irritable, apprehensive). Collaborate with interdisciplinary team and initiate plan and interventions as ordered. Outcome: Progressing Problem: Inadequate Coping Goal: Demonstrates ability to cope effectively Description: Patient is able to verbalize feelings related to emotional state. Outcome: Progressing Goal: Verbalizes adaptive coping mechanisms Description: Able to verbalize adaptive coping mechanisms such as physical activity, distraction, and deep breathing exercises. Outcome: Progressing Goal: Verbalizes personal strengths Description: Spend time with the patient using empathy and active listening skills. Outcome: Progressing Problem: Progressive Mobility Goal: BMAT Level 1 - With full mechanical lifting assistance: Outcome: Progressing Goal: BMAT Level 2 - With 2-person and/or mechanical lifting assistance: Outcome: Progressing Goal: BMAT Level 3 - With 1 to 2-person and/or mechanical lifting assistance: Outcome: Progressing Goal: BMAT Level 4 - With 1-person assistance or mobility aid as needed (walker, cane, crutches): Outcome: Progressing Problem: Discharge Barriers Goal: Patient's discharge needs are met Description: Collaborate with interdisciplinary team and initiate plans and interventions as needed. Outcome: Progressing documented in this encounter Plan of Treatment Pending Results Name Type Priority Associated Diagnoses Date /Time Prepare RBC: 2 Units Blood Bank Routine 11/2024 11:04 AM EDT documented as of this encounter Procedures Procedure Name Priority Date/Time Associated Diagnosis Comments XR CHEST AP PORTABLE Routine 02/28/2025 9:19 AM EDT PHOSPHORUS Routine 02/28/2025 8:20 AM EDT MAGNESIUM Routine 02/28/2025 8:20 AM EDT COMPREHENSIVE METABOLIC PANEL Routine 02/28/2025 8:20 AM EDT CBC W/ AUTO DIFF Routine 02/28/2025 8:19 AM EDT CALCIUM, IONIZED Routine 02/28/2025 5:08 AM EDT FS_MODEL_IP_ECG 12-LEAD Routine 02/27/2025 5:13 PM EDT XR CHEST AP PORTABLE STAT 02/27/2025 9:54 AM EDT CBC HEMOGRAM (SJ-BKR) Routine 02/27/2025 2:45 AM EDT BASIC METABOLIC PANEL Routine 02/27/2025 2:45 AM EDT TISSUE EXAM [facility] AP Routine 02/26/2025 2:00 PM EDT 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) [place] BYP OTH/THN VEIN FEMORAL-POPLITEAL 02/26/2025 12:46 PM EDT 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 Narrative 02/28/2025 9:40 AM EDT CHEST ONE VIEW HISTORY: Abnormal cardiovascular exam , shortness of breath COMPARISON: 02/27/2025 FINDINGS: No acute pulmonary opacity is present. There is no evidence of effusion or pneumothorax. There is evidence of prior median sternotomy, presumably from CABG. Otherwise, mediastinum is unremarkable. Heart size is normal. Procedure Note Koby Car MD - 02/28/2025 CHEST ONE VIEW HISTORY: Abnormal cardiovascular exam , shortness of breath COMPARISON: 02/27/2025 FINDINGS: No acute pulmonary opacity is present. There is no evidence of effusion or pneumothorax. There is evidence of prior median sternotomy, presumably from CABG. Otherwise, mediastinum is unremarkable. Heart size is normal. IMPRESSION: Unremarkable chest, status post CABG. Iggy Felipe MD IMG DIAGNOSTIC IMAGI NG ORDERABLES Final Result * Phosphorus (02/28/2025 8:20 AM EDT) Phosphorus 2.7 2.5 - 4.5 mg/dL 02/28/2025 9:04 AM EDT [facility] Blood Venipuncture / Unknown 02/28/2025 8:20 AM EDT 02/28/2025 8:43 AM EDT Iggy Felipe MD LAB BLOOD ORDERABLES Final Result [facility] [address] [phone] * Magnesium (02/28/2025 8:20 AM EDT) Magnesium 1.7 1.6 - 2.6 mg/dL 02/28/2025 9:04 AM EDT [facility] Blood Venipuncture / Unknown 02/28/2025 8:20 AM EDT 02/28/2025 8:43 AM EDT Iggy Felipe MD LAB BLOOD ORDERABLES Final Result [facility] [address] [phone] * (ABNORMAL) Comprehensive metabolic panel (02/28/2025 8:20 AM EDT) Sodium 136 136 - 145 meq/L 02/28/2025 9:04 AM EDT [facility] Potassium 3.9 3.4 - 5.1 meq/L 02/28/2025 9:04 AM EDT [facility] Chloride 103 98 - 112 meq/L 02/28/2025 9:04 AM EDT [facility] CO2 23 22 - 29 meq/L 02/28/2025 9:04 AM EDT [facility] Calcium 8.3(L) 8.4 - 10.2 mg/dL 02/28/2025 9:04 AM EDT [facility] Glucose 100 82 - 115 mg/dL 02/28/2025 9:04 AM EDT [facility] BUN 17.3 8.4 - 25.7 mg/dL 02/28/2025 9:04 AM EDT [facility] Creatinine 1.02 0.72 - 1.25 mg/dL 02/28/2025 9:04 AM EDT [facility] BUN/Creatinine 17 8 - 20 02/28/2025 9:04 AM EDT [facility] eGFR (mL/min/1.73m2) 83 >=60 mL/min/1. 73m2 02/28/2025 9:04 AM EDT [facility] Albumin 2.8(L) 3.5 - 5.0 g/dL 02/28/2025 9:04 AM EDT [facility] Alkaline Phosphatase 66 40 - 150 U/L 02/28/2025 9:04 AM EDT [facility] ALT 9 <=45 U/L 02/28/2025 9:04 AM EDT [facility] Comment: ALT2 reagent used for testing does not contain P5P supplementation and therefore may miss ALT elevations in patients with B6 deficiency. This population may be as high as 10% in the [place], with risk factors including malabsorption, drug interactions, and alcoholic hepatitis. AST 17 11 - 34 U/L 02/28/2025 9:04 AM EDT [facility] Comment: AST2 reagent used for testing does not contain P5P supplementation and therefore may miss AST elevations in patients with B6 deficiency. This population may be as high as 10% in the [place], with risk factors including malabsorption, drug interactions, and alcoholic hepatitis. Total Bilirubin 0.9 0.2 - 1.2 mg/dL 02/28/2025 9:04 AM EDT [facility] Protein, Total 6.4 6.4 - 8.3 g/dL 02/28/2025 9:04 AM EDT [facility] Globulin 3.6 2.5 - 4.1 g/dL 02/28/2025 9:04 AM EDT [facility] Anion Gap 14(H) 4 - 12 02/28/2025 9:04 AM T [facility] A/G Ratio 0.8 0.7 - 1.9 02/28/2025 9:04 AM EDT [facility] Osmolality Calc 273.7 mOsm/kg 9:04 AM T [facility] Blood Venipuncture / Unknown 02/28/2025 8:20 AM EDT 02/28/2025 8:43 AM EDT us Iggy Felipe MD LAB BLOOD ORDERABLES Final Result [facility] [address] [place] [address] * (ABNORMAL) CBC with automated diff (02/28/2025 8:19 AM EDT) WBC 9.9(H) 4.2 - 9.1 K/ L 02/28/2025 8:46 AM EDT [facility] RBC 3.27(L) 4.63 - 6.08 M/ L 02/28/2025 8:46 AM EDT [facility] Hemoglobin 10.1(L) 13.7 - 17.5 GM/DL 02/28/2025 8:46 AM EDT [facility] Hematocrit 30.7(L) 40.1 - 51.0 % 02/28/2025 8:46 AM EDT [facility] MCV 94(H) 79 - 92 fL 02/28/2025 8:46 AM EDT [facility] MCH 30.9 25.7 - 32.2 pg 02/28/2025 8:46 AM EDT [facility] MCHC 32.9 32.3 - 36.5 GM/DL 02/28/2025 8:46 AM EDT [facility] RDW 13.2 11.6 - 14.4 % 02/28/2025 8:46 AM EDT [facility] Platelets 164 140 - 375 K/CU MM 02/28/2025 8:46 AM EDT [facility] MPV 11.2 9.4 - 12.4 fL 02/28/2025 8:46 AM EDT [facility] % Neutros 70(H) 34 - 68 % 02/28/2025 8:46 AM EDT [facility] % Lymphs 17(L) 22 - 53 % 02/28/2025 8:46 AM EDT [facility] % Monos 12 5 - 12 % 02/28/2025 8:46 AM EDT [facility] % Eos 0(L) 1 - 7 % 02/28/2025 8:46 AM EDT [facility] % Baso 0 0 - 1 % 02/28/2025 8:46 AM EDT [facility] NRBC Absolute <0.01 0 - 0.012 K/ul 02/28/2025 8:46 AM EDT [facility] # Neutros 6.97(H) 1.78 - 5.38 K/ L 02/28/2025 8:46 AM EDT [facility] # Lymphs 1.68 1.32 - 3.57 K/ L 02/28/2025 8:46 AM EDT [facility] # Monos 1.14(H) 0.30 - 0.82 K/ L 02/28/2025 8:46 AM EDT [facility] # Eos 0.04 0.04 - 0.54 K/ L 02/28/2025 8:46 AM EDT [facility] # Baso <0.03 0.01 - 0.08 K/ L 02/28/2025 8:46 AM EDT [facility] Immature Granulocytes-Re lative 0.50(H) 0.01 - 0.43 % 02/28/2025 8:46 AM EDT [facility] # IG 0.05(H) 0.00 - 0.03 K/uL 02/28/2025 8:46 AM EDT [facility] Blood Venipuncture / Unknown 02/28/2025 8:19 AM EDT 02/28/2025 8:43 AM EDT Narrative [facility] - 02/28/2025 8:46 AM EDT When CBC w/ Auto Diff is ordered the lab will add a Manual Differential as a quality check at no additional charge if: Lymphocytes greater than seventy five percent with normal or increased WBC Monocytes greater than Fifteen percent Basophil greater than four percent Bands >10% or several immature myeloids are seen on scan Blast? Flag noted Atypical Lymph flag noted Iggy Felipe MD LAB BLOOD ORDERABLES Final Result [facility] [address] [place] [id number] [phone] * (ABNORMAL) CALCIUM Ionized (02/28/2025 5:08 AM EDT) Calcium Ionized 0.97(L) 1.12 - 1.32 mmol/L 02/28/2025 5:47 AM EDT [facility] Blood Venipuncture / Unknown 02/28/2025 5:08 AM EDT 02/28/2025 5:39 AM EDT Iggy Felipe MD LAB BLOOD ORDERABLES Final Result Performing Organization Address [facility] Co de Phone Number [facility] [address] [phone] * ECG 12 lead (02/27/2025 5:13 PM EDT) VENTRICULAR RATE EKG/MIN 91 BPM GE MUSE ATRIAL RATE (MCT) 0 BPM GE MUSE QRS-INTERVAL (MSEC) 134 ms GE MUSE QT Interval 402 ms GE MUSE QTC Interval 494 ms GE MUSE R AXIS (MCT) -19 degrees GE MUSE T Wave [place] 40 degrees GE MUSE [place] Diagnosis Sinus rhythm with 1st degree AV block Right bundle branch block Abnormal ECG No previous ECGs available Confirmed by Ruy TOPETE, [facility] (2019) on 02/28/2025 7:15:10 PM GE MUSE 02/27/2025 5:13 PM EDT 02/28/2025 7:15 PM EDT Chica Hernadez JOB HONER ECG ORDERABLES Final Result Performing Organization Address [facility] de Phone Number GE MUSE * XR chest AP portable (02/27/2025 9:54 AM EDT) Anatomical Region Laterality Modality Chest X-Ray 02/27/2025 11:0 5 AM EDT Impressions 02/27/2025 11:21 AM EDT No acute cardiopulmonary process . Continued follow-up is recommended . Images reviewed, interpreted, and dictated by Dr. Yandel Mccarthy. Transcribed by Rima Ko PA-C. Narrative 02/27/2025 11:21 AM EDT PORTABLE CHEST 02/27/2025 9:54 AM HISTORY: Shortness of breath. COMPARISON: None. FINDINGS: The heart is normal in size . The mediastinum is unremarkable . Diffuse interstitial changes are probably chronic . The lungs are otherwise clear . There is no pneumothorax . The osseous structures are unremarkable . The patient is status post median sternotomy. Procedure Note Fadumo Mccarthy MD - 02/27/2025 PORTABLE CHEST 02/27/2025 9:54 AM HISTORY: Shortness of breath. COMPARISON: None. FINDINGS: The heart is normal in size . The mediastinum is unremarkable . Diffuse interstitial changes are probably chronic . The lungs are otherwise clear . There is no pneumothorax . The osseous structures are unremarkable . The patient is status post median sternotomy. IMPRESSION: No acute cardiopulmonary process . Continued follow-up is recommended . Images reviewed, interpreted, and dictated by Dr. Yandel Mccarthy. Transcribed by Rima Ko PA-C. Iggy Felipe MD IMG DIAGNOSTIC IMAGI NG ORDERABLES Final Result * (ABNORMAL) Basic Metabolic Panel (02/27/2025 2:45 AM EDT) Sodium 135(L) 136 - 145 meq/L 02/27/2025 3:15 AM EDT [facility] Potassium 4.3 3.4 - 5.1 meq/L 02/27/2025 3:15 AM EDT [facility] CO2 22 22 - 29 meq/L 02/27/2025 3:15 AM EDT [facility] Chloride 105 98 - 112 meq/L 02/27/2025 3:15 AM EDT [facility] Glucose 106 82 - 115 mg/dL 02/27/2025 3:15 AM EDT [facility] BUN 15.7 8.4 - 25.7 mg/dL 02/27/2025 3:15 AM EDT [facility] Creatinine 1.01 0.72 - 1.25 mg/dL 02/27/2025 3:15 AM EDT [facility] BUN/Creatinine 16 8 - 20 02/27/2025 3:15 AM EDT [facility] Calcium 8.4 8.4 - 10.2 mg/dL 02/27/2025 3:15 AM EDT [facility] Anion Gap 12 4 - 12 02/27/2025 3:15 AM EDT [facility] eGFR (mL/min/1.73m2) 84 >=60 mL/min/1.7 3m2 02/27/2025 3:15 AM EDT [facility] Osmolality Calc 271.6 mOsm/kg 3:15 AM EDT [facility] Blood Venipuncture / Unknown 02/27/2025 2:45 AM EDT 02/27/2025 2:51 AM EDT us [facility] LAB BLOOD ORDERABLES Final Res ult [facility] [address] [phone] * (ABNORMAL) CBC (Hemogram only) (02/27/2025 2:45 AM EDT) WBC 11.4(H) 4.2 - 9.1 K/ L 02/27/2025 2:53 AM EDT [facility] RBC 3.58(L) 4.63 - 6.08 M/ L 02/27/2025 2:53 AM EDT [facility] Hemoglobin 11.1(L) 13.7 - 17.5 GM/DL 02/27/2025 2:53 AM EDT [facility] Hematocrit 33.6(L) 40.1 - 51.0 % 02/27/2025 2:53 AM EDT [facility] MCV 94(H) 79 - 92 fL 02/27/2025 2:53 AM EDT [facility] MCH 31.0 25.7 - 32.2 pg 02/27/2025 2:53 AM EDT [facility] MCHC 33.0 32.3 - 36.5 GM/DL 02/27/2025 2:53 AM EDT [facility] RDW 13.3 11.6 - 14.4 % 02/27/2025 2:53 AM EDT [facility] Platelets 193 140 - 375 K/CU MM 02/27/2025 2:53 AM EDT [facility] MPV 11.2 9.4 - 12.4 fL 02/27/2025 2:53 AM EDT [facility] Blood Venipuncture / Unknown 02/27/2025 2:45 AM EDT 02/27/2025 2:51 AM EDT [facility] MD LAB BLOOD ORDERABLES Final Res ult [facility] [address] [phone] * Tissue Exam (02/26/2025 2:00 PM EDT) AP RESULT See Note: [facility] Comment: [facility] [address] [place] [address] or [phone] Chris Perez M.D., Transfer Worker PATIENT NAME LABORATORY NO. [id number] TRICIA LARKIN [id number] AGE SEX SSN CLIENT REF # [facility] 64 1960 [id number] 1 [facility] REQUESTING Joselito ATTENDING M.D. COPY TO. [address] DATE COLLECTED DATE RECEIVED DATE REPORTED 02/26/2025 02/26/2025 02/28/2025 DIAGNOSIS: ARTERY, ATHEROMATOUS PLAQUE, RIGHT FEMORAL: Moderately calcified atheromatous plaque [facility] CLINICAL HISTORY: Atherosclerosis of anvik arteries of extremities with gangrene, right leg SPECIMENS RECEIVED: ARTERY, ATHEROMATOUS PLAQUE, RIGHT FEMORAL MICROSCOPIC DESCRIPTION: Tissue blocks are prepared and slides are examined microscopically on all specimens. See diagnosis for details. Professional interpretation rendered by Koby Angel M.D., F.C.A.P. at [facility], [place], [address] [place] [address]. GROSS DESCRIPTION: Received in formalin labeled right femoral plaque are multiple fragments of sanchez-yellow rubbery to densely calcified atheromatous material aggregating 4.5 x 1.8 x 0.8 cm. A small amount of thrombus material is noted upon sectioning. Actuarial Director sections of calcified tissue are submitted in block A1 following decalcification. MTS REVIEWED, DIAGNOSED AND ELECTRONICALLY SIGNED BY: Koby Angel M.D., Nohemy CPT CODES: 80102, [id number] Tissue PLAQUE / Unknown 02/26/2025 2:00 PM EDT Junior Noemi TOPETE PATHOLOGY/CYTOLOGY ORDERABLES Final Result Performing Organization Address [facility] Co de Phone Number [facility] [address] * (ABNORMAL) Glucose, Nova Meter (02/26/2025 11:32 AM EDT) POC-GLUCOSE 111(H) 70 - 110 mg/dL 02/26/2025 11:33 AM EDT [facility] Comment: In the event of poor peripheral blood flow, venous or arterial blood should be used due to the potential of erroneous results. Notified Nurse RBV Bottle Capping Machine Operator [id number] 02/26/2025 11:33 AM EDT [facility] Blood WHOLE BLOOD / Unknown 02/26/2025 11:32 AM EDT 02/26/2025 11:33 AM EDT Narrative [facility] - 02/26/2025 11:33 AM EDT Bottle Capping Machine Operator ID is - [id number] Junior Noemi TOPETE POINT OF CARE TEST ORDERABLES Final Result Performing Organization Address City/[facility] Co de Phone Number [facility] [address] [phone] * ABO/RH Confirmation/Retype (02/26/2025 11:29 AM EDT) RETYPE O Negative 02/26/2025 11:13 AM EDT - BLOOD BANK ([place]) Blood Venipuncture / Unknown 02/26/2025 11:29 AM EDT 02/26/2025 11:37 AM EDT Raciel Pineda MD [facility] BLOOD BANK TEST ORDERA BLES Final Result [facility] ([place]) [address] [facility] [place] [address], [facility] [phone] * Type and Screen (02/26/2025 11:27 AM EDT) ABO/Rh O Negative 02/26/2025 11:04 AM EDT [facility] BLOOD [facility] ([place]) Antibody Screen Negative 02/26/2025 11:04 AM EDT [facility] ([place]) HISTCHK HIST CHECK PERFORMED 02/26/2025 11:04 AM EDT [facility] ([place]) Blood Venipuncture / Unknown 02/26/2025 11:27 AM EDT 02/26/2025 11:37 AM EDT us Raciel Pineda MD [facility] BLOOD BANK TEST ORDERA BLES Final Result Performing Organization Address City/[facility]/ZIP Co de Phone Number [facility] ([place]) [address] [facility] [place] [address], [facility] [phone] * EKG-SCANNED (02/26/2025) Narrative 02/26/2025 Ordered by an unspecified provider. 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 Alternatively, Apixaban tablets may be crushed and suspended in 60 mL of water or D5W and promptly delivered through a nasogastric tube. Given 02/28/2025 11:20 AM EDT 2.5 mg Given 02/27/2025 9:54 PM EDT 2.5 mg Given 02/27/2025 2:16 PM EDT 2.5 mg aspirin tablet 325 mg Daily, oral, First dose on Tue02/27/25 at 0900, Phase II/On Unit Given 02/28/2025 11:20 AM EDT 325 mg Given 02/27/2025 9:15 AM EDT 325 mg atorvastatin (LIPITOR) tablet 40 mg 40 mg Daily, oral, First dose on Tue02/27/25 at 0900, Phase II/On Unit Given 02/28/2025 11:20 AM EDT 40 mg Given 02/27/2025 9:15 AM EDT 40 mg bethanechol (URECHOLINE) tablet 10 mg 10 mg 3 times daily, oral, First dose on Tue02/27/25 at 1500, For 5 days Given 02/28/2025 11:20 AM EDT 10 mg Given 02/27/2025 9:53 PM EDT 10 mg Given 02/27/2025 2:15 PM EDT 10 mg cilostazoL (PLETAL) tablet 100 mg 100 mg 2 times daily, oral, First dose on Tue02/26/25 at 2100, Phase II/On Unit Given 02/28/2025 11:20 AM EDT 100 mg Given 02/27/2025 9:53 PM EDT 100 mg Given 02/27/2025 9:15 AM EDT 100 mg clopidogreL (PLAVIX) tablet 75 mg 75 mg Daily, oral, First dose on Tue02/27/25 at 0900, Look-alike/Sound-alike medication, Phase II/On Unit Given 02/28/2025 11:20 AM EDT 75 mg Given 02/27/2025 9:15 AM EDT 75 mg docusate sodium (COLACE) capsule 100 mg 100 mg Daily, oral, First dose on Tue02/26/25 at 2000, * DO NOT CRUSH THIS DOSAGE FORM *, Phase II/On Unit Given 02/28/2025 11:20 AM EDT 100 mg Given 02/26/2025 8:49 PM EDT 100 mg famotidine (PEPCID) tablet 20 mg 20 mg Once, oral, On Tue02/26/25 at 1130, For 1 dose, Pharmacist to renally dose if CrCl is less than 50 mL/min or on CRRT., Pre-op Given 02/26/2025 11:34 AM EDT 20 mg fentaNYL PF (SUBLIMAZE) injection 100 mcg 100 mcg Once, intravenous, On Tue02/26/25 at 1130, For 1 dose, Pre-op Given 02/26/2025 11:44 AM EDT 50 mcg fentaNYL PF (SUBLIMAZE) injection 25 mcg 25 mcg Every 5 min PRN, intravenous, moderate to severe pain (4-10), Starting on Tue02/26/25 at 1507, Maximum cumulative dose 100 mcg without speaking to anesthesia provider, PACU Given 02/26/2025 6:07 PM EDT 25 mcg hydroCHLOROthiazide (HYDRODIURIL) tablet 25 mg 25 mg Daily, oral, First dose on Tue02/26/25 at 2000 Given 02/28/2025 11:20 AM EDT 25 mg Given 02/27/2025 9:15 AM EDT 25 mg Given 02/26/2025 8:49 PM EDT 25 mg lactated Ringer's infusion 100 mL/hr Continuous, intravenous, Starting on Tue02/26/25 at 1130 New Bag 02/26/2025 11:36 AM EDT 100 mL/hr 100 mL/hr loratadine (CLARITIN) tablet 10 mg 10 mg Daily, oral, First dose on Tue02/27/25 at 0900, Phase II/On Unit Given 02/28/2025 11:20 AM EDT 10 mg Given 02/27/2025 9:15 AM EDT 10 mg metoprolol succinate (TOPROL-XL) 24 hr tablet 50 mg 50 mg Daily, oral, First dose on Tue02/27/25 at 0900, Hold for systolic BP < 90 mmHg or for HR < 50 BPM Do Not Crush or Chew (Tablet may be split), Phase II/On Unit Given 02/28/2025 11:20 AM EDT 50 mg Given 02/27/2025 9:15 AM EDT 50 mg midazolam (VERSED) injection 2 mg 2 mg Once, intravenous, On Tue02/26/25 at 1130, For 1 dose, Look-alike/Sound-alike medication. Contains Benzyl Alcohol, Pre-op Given 02/26/2025 11:44 AM EDT 2 mg niCARdipine (CARDENE) 25 mg in sodium chloride 0.9 % (NS) 250 mL infusion (CMPD) 0-15 mg/hr Titrated (0-150 mL/hr), intravenous, Starting on Tue02/26/25 at 1600 oxyCODONE (ROXICODONE) immediate release tablet 5 mg 5 mg Once as needed, oral, moderate pain (4-6), Starting on Tue02/26/25 at 1507, For 1 dose, Once patient is taking PO Look-alike/Sound-alike medication, PACU Given 02/26/2025 5:06 PM EDT 5 mg oxyCODONE-acetaminophen (PERCOCET) 5-325 mg per tablet 1 tablet 1 tablet Every 4 hours PRN, oral, moderate pain (4-6), Starting on Tue02/26/25 at 1921, Recommended maximum dose of acetaminophen is 4000 mg from all sources in 24 hours Look-alike/Sound-alike medication, Phase II/On Unit Given 02/28/2025 11:19 AM EDT 1 tablet Given 02/27/2025 10:11 PM EDT 1 tablet Given 02/27/2025 5:13 AM EDT 1 tablet pantoprazole (PROTONIX) EC tablet 40 mg 40 mg Daily, oral, First dose on Tue02/26/25 at 2000, Therapeutic Interchange for Proton Pump Inhibitors. * DO NOT CRUSH THIS DOSAGE FORM *, Phase II/On Unit Given 02/28/2025 11:20 AM EDT 40 mg Given 02/27/2025 9:15 AM EDT 40 mg Given 02/26/2025 8:49 PM EDT 40 mg sodium chloride 0.9 % infusion 100 mL/hr Continuous, intravenous, Starting on Tue02/26/25 at 1130 New Bag 02/27/2025 5:53 PM EDT 100 mL/hr 100 mL/hr sodium chloride 0.9 % infusion 3 mL/kg/hr 107 kg Continuous (321 mL/hr), intravenous, Starting on Tue02/26/25 at 1130, 1 hour prior to procedure run at 3 ml/kg/hr then 1ml/kg/hr intraoperatively and 6 hours post-op sodium chloride 0.9 % infusion 1 mL/kg/hr 107 kg Continuous (107 mL/hr), intravenous, Starting on Tue02/26/25 at 1230, Run at 1 ml/kg/hr intraoperatively and 6 hours post-op tamsulosin (FLOMAX) capsule 0.4 mg 0.4 mg Daily, oral, First dose on Tue02/27/25 at 1400, * DO NOT CRUSH THIS DOSAGE FORM * Given 02/28/2025 11:20 AM EDT 0.4 mg Given 02/27/2025 2:15 PM EDT 0.4 mg valsartan (DIOVAN) tablet 320 mg 320 mg Daily, oral, First dose on Tue02/26/25 at 2000 Given 02/27/2025 10:52 AM EDT 320 mg Given 02/26/2025 8:49 PM EDT 320 mg documented in this encounter Active and Recently Administered Medications Times are shown in EDT. Scheduled Medication Order 02/26/2025 02/27/2025 02/28/2025 apixaban (ELIQUIS) tablet 2.5 mg 2.5 mg 2 times daily, oral, First dose on Tue02/27/25 at 1400, For patients who are unable to swallow whole tablets, Apixaban tablets may be crushed and suspended in water, D5W, or apple juice, or mixed with applesauce and promptly administered orally. Alternatively, Apixaban tablets may be crushed and suspended in 60 mL of water or D5W and promptly delivered through a nasogastric tube. 1416 (Given - Provider: Lanny Coburn RN)4 (Given - Provider: Watson Blount RN) 1120 (Given - Provider: Ruby Henry RN) aspirin tablet 325 mg Daily, oral, First dose on Tue02/27/25 at 0900, Phase II/On Unit 0915 (Given - Provider: Uziel Barnes RN) 1120 (Given - Provider: Ruby Henry, HERIBERTO) atorvastatin (LIPITOR) tablet 40 mg 40 mg Daily, oral, First dose on Tue02/27/25 at 0900, Phase II/On Unit 0915 (Given - Provider: Uziel Barnes RN) 1120 (Given - Provider: Ruby Henry, HERIBERTO) bethanechol (URECHOLINE) tablet 10 mg 10 mg 3 times daily, oral, First dose on Tue02/27/25 at 1500, For 5 days 1415 (Given - Provider: Lanny Coburn, RN)2152 (Given - Provider: Watson Blount, HERIBERTO) 1120 (Given - Provider: Ruby Henry, RN)1500 (Due) ceFAZolin (ANCEF) 2 g in sodium chloride 0.9 % (NS) MBP 50 mL IVPB (COMPLETED) 2 g Once, intravenous, Administer over 30 Minutes, On Tue02/26/25 at 1130, For 1 dose, Administer within 60 minutes of incision or procedure start., Pre-op, Please choose an indication: Surgical Prophylaxis 1314 (New Bag - Provider: Ramos Beck) cilostazoL (PLETAL) tablet 100 mg 100 mg 2 times daily, oral, First dose on Tue02/26/25 at 2100, Phase II/On Unit 2048 (Given - Provider: Rocio Cunningham, HERIBERTO) 914 (Given - Provider: Uziel Barnes RN)2152 (Given - Provider: Watson Blount, HERIBERTO) 1119 (Given - Provider: Ruby Henry, HERIBERTO) clopidogreL (PLAVIX) tablet 75 mg 75 mg Daily, oral, First dose on Tue02/27/25 at 0900, Look-alike/Sound-sven e medication, Phase II/On Unit 914 (Given - Provider: Uziel Barnes, RN) 1119 (Given - Provider: Ruby Henry, RN) docusate sodium (COLACE) capsule 100 mg 100 mg Daily, oral, First dose on Tue02/26/25 at 2000, * DO NOT CRUSH THIS DOSAGE FORM *, Phase II/On Unit 2048 (Given - Provider: Rocio Cunningham, HERIBERTO) 914 (Not Given - Provider: Uziel Barnes RN - Reason: Patient/family refused) 1119 (Given - Provider: Ruby Henry, HERIBERTO) famotidine (PEPCID) tablet 20 mg (COMPLETED) 20 mg Once, oral, On Tue02/26/25 at 1130, For 1 dose, Pharmacist to renally dose if CrCl is less than 50 mL/min or on CRRT., Pre-op 1134 (Given - Provider: Camila Marquez, HERIBERTO) fentaNYL PF (SUBLIMAZE) injection 100 mcg (COMPLETED) 100 mcg Once, intravenous, On Tue02/26/25 at 1130, For 1 dose, Pre-op 1144 (Given - Provider: Camila Marquez, HERIBERTO) hydroCHLOROthiazide (HYDRODIURIL) tablet 25 mg(Linked Group 1) 25 mg Daily, oral, First dose on Tue02/26/25 at 1999 2048 (Given - Provider: Rocio Cunningham RN) 914 (Given - Provider: Uziel Barnes, HERIBERTO) 1119 (Given - Provider: Ruby Henry, HERIBERTO) loratadine (CLARITIN) tablet 10 mg 10 mg Daily, oral, First dose on Tue02/27/25 at 0900, Phase II/On Unit 914 (Given - Provider: Uziel Barnes RN) 1119 (Given - Provider: Ruby Henry, HERIBERTO) metoprolol succinate (TOPROL-XL) 24 hr tablet 50 mg 50 mg Daily, oral, First dose on Tue02/27/25 at 0900, Hold for systolic BP < 90 mmHg or for HR < 50 BPM Do Not Crush or Chew (Tablet may be split), Phase II/On Unit 914 (Given - Provider: Uziel Barnes RN) 1119 (Given - Provider: Ruby Henry, HERIBERTO) midazolam (VERSED) injection 2 mg (COMPLETED) 2 mg Once, intravenous, On Tue02/26/25 at 1130, For 1 dose, Look-alike/Sound-sven e medication. Contains Benzyl Alcohol, Pre-op 114 (Given - Provider: Camila Marquez, HERIBERTO) pantoprazole (PROTONIX) EC tablet 40 mg 40 mg Daily, oral, First dose on Tue02/26/25 at 1999, Therapeutic Interchange for Proton Pump Inhibitors. * DO NOT CRUSH THIS DOSAGE FORM *, Phase II/On Unit 2048 (Given - Provider: Rocio Cunninhgam RN) 914 (Given - Provider: Uziel Barnes, HERIBERTO) 1119 (Given - Provider: Ruby Henry, HERIBERTO) tamsulosin (FLOMAX) capsule 0.4 mg 0.4 mg Daily, oral, First dose on Tue02/27/25 at 1400, * DO NOT CRUSH THIS DOSAGE FORM * 1415 (Given - Provider: Lanny Coburn, RN) 1120 (Given - Provider: Ruby Henry, HERIBERTO) valsartan (DIOVAN) tablet 320 mg(Linked Group 1) 320 mg Daily, oral, First dose on Tue02/26/25 at 2000 2049 (Given - Provider: Rocio Cunningham, RN) 1052 (Given - Provider: Uziel Barnes, HERIBERTO) 0900 (Due) Continuous Medication Order 02/26/2025 02/27/2025 02/28/2025 lactated Ringer's infusion 100 mL/hr Continuous, intravenous, Starting on Tue02/26/25 at 1130 1136 (New Bag - Provider: Camila Marquez RN) niCARdipine (CARDENE) 25 mg in sodium chloride 0.9 % (NS) 250 mL infusion (CMPD) 0-15 mg/hr Titrated (0-150 mL/hr), intravenous, Starting on Tue02/26/25 at 1600 1600 (Due) sodium chloride 0.9 % infusion 100 mL/hr Continuous, intravenous, Starting on Tue02/26/25 at 1130 1753 (New Bag - Provider: Barbara Hitchcock) sodium chloride 0.9 % infusion(Linked Group 2) 3 mL/kg/hr 107 kg Continuous (321 mL/hr), intravenous, Starting on Tue02/26/25 at 1130, 1 hour prior to procedure run at 3 ml/kg/hr then 1ml/kg/hr intraoperatively and 6 hours post-op 1130 (Due) sodium chloride 0.9 % infusion(Linked Group 2) 1 mL/kg/hr 107 kg Continuous (107 mL/hr), intravenous, Starting on Tue02/26/25 at 1230, Run at 1 ml/kg/hr intraoperatively and 6 hours post-op 1230 (Due) PRN Medication Order 02/26/2025 02/27/2025 02/28/2025 fentaNYL PF (SUBLIMAZE) injection 25 mcg (CANCELED) 25 mcg Every 5 min PRN, intravenous, moderate to severe pain (4-10), Starting on Tue02/26/25 at 1507, Maximum cumulative dose 100 mcg without speaking to anesthesia provider, PACU 1807 (Given - Provider: Saadia Booth, HERIBERTO) heparin 1,000 Units/mL injection (CANCELED) As needed, Starting on Tue02/26/25 at 1359, Intra-op 1359 (Given - Provider: Junior Noemi MD) HYDROmorphone (DILAUDID) injection 0.2 mg 0.2 mg Every hour PRN, intravenous, severe pain (7-10), Starting on Tue02/26/25 at 1921, Phase II/On Unit oxyCODONE (ROXICODONE) immediate release tablet 5 mg (COMPLETED) 5 mg Once as needed, oral, moderate pain (4-6), Starting on Tue02/26/25 at 1507, For 1 dose, Once patient is taking PO Look-alike/Sound-alike medication, PACU 1706 (Given - Provider: Saadia Booth, HERIBERTO) oxyCODONE-acetaminophen (PERCOCET) 5-325 mg per tablet 1 tablet 1 tablet Every 4 hours PRN, oral, moderate pain (4-6), Starting on Tue02/26/25 at 1921, Recommended maximum dose of acetaminophen is 4000 mg from all sources in 24 hours Look-alike/Sound-alike medication, Phase II/On Unit 2225 (Given - Provider: Rocio Cunningham RN) 0513 (Given - Provider: Rocio Cunningham RN)2211 (Given - Provider: Watson Blount, RN) 1119 (Given - Provider: Ruby Henry, RN) sodium chloride (NS) 0.9 % irrigation solution (CANCELED) As needed, Starting on Tue02/26/25 at 1400, Intra-op 1400 (Given - Provider: Junior Noemi MD) Linked Groups Order Group 1: valsartan (DIOVAN) tablet 320 mgJump to med 320 mg Daily, oral, First dose on Tue02/26/25 at 2000 And hydroCHLOROthiazide (HYDRODIURIL) tablet 25 mgJump to med 25 mg Daily, oral, First dose on Tue02/26/25 at 1999 Group 2: sodium chloride 0.9 % infusionJump to med 3 mL/kg/hr 107 kg Continuous (321 mL/hr), intravenous, Starting on Tue02/26/25 at 1130, 1 hour prior to procedure run at 3 ml/kg/hr then 1ml/kg/hr intraoperatively and 6 hours post-op And sodium chloride 0.9 % infusionJump to med 1 mL/kg/hr 107 kg Continuous (107 mL/hr), intravenous, Starting on Tue02/26/25 at 1230, Run at 1 ml/kg/hr intraoperatively and 6 hours post-op documented in this encounter Care Teams Load Out Worker Relationship Specialty Start Date End Date Tony Roblero MD [address] [place] [id number] PCP - General Internal Medicine 02/21/25 documented as of this encounter
--- OUTSIDE RECORDS SUMMARY | 2025-02-26 12:30 | XMS_ITS | Encounter Summary ---
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 (HCC) Atherosclerosis of pon[place] artery of right lower extremity Procedures IA BYP OTH/THN VEIN FEMORAL-POPLITEAL IA BYPASS W/VEIN FEMORAL-POPLITEAL IA TEAEC W/WO PATCH GRAFT COMMON FEMORAL CREATION, BYPASS, ARTERIAL, FEMORAL TO POPLITEAL, [place] [address] [place] [address] Phone: tel: fax: Referral ID Status Reason Start Date Expiration Date Visits Re quested Visits Authorized [id number] 02/19/2025 1 3 Encounter Details Date Type Department Care Team (Late st Contact Info) Description 02/26/2025 12:30 PM EDT - 02/26/2025 3:21 PM EDT Surgery [facility] Operating Room [address] [place] [address] Junior Franklin MD [address] [place] [address] (RIGHT FEMORAL TO POPLITEAL ARTERY BYPASS GRAFT) Social History Tobacco Use Types Packs/Day Years [...] Sign Reading Time Taken Comments Blood Pressure 140/53 02/26/2025 11:06 AM EDT Pulse 72 02/26/2025 11:41 AM EDT Temperature 36.4 C (97.5 F) 02/26/2025 11:06 AM EDT Respiratory Rate 18 02/26/2025 11:41 AM EDT Oxygen Saturation 100% 02/26/2025 11:41 AM EDT 2L NC Inhaled Oxygen Concentration - - Weight 107 [...] s/p coronary artery stent 2017 - Hx VT - Legally blind - Nicotine use - [...] R AXIS (MCT) -19 degrees T Wave [place] 40 degrees [place] Diagnosis Wide QRS rhythm Right bundle branch [...] Value Units Date/Time XR chest AP portable [[id number]] Collected: 02/28/25939 Order Status: Completed Updated: 02/28/25941 [...] status post CABG. XR chest AP portable [[id number]] Collected: 02/27/25 1105 Order Status: Completed Updated: [...] Your Medications These medications were sent to [facility] [address] [place] [address] [address] apixaban 2.5 mg Tab tablet bethanechol 10 [...] Noemi MD Vascular Surgery Surgery General Surgery [phone] [address] [place] [address] Next Steps: Schedule an appointment as soon [...] male admitted on 02/26/2025 with Atherosclerosis of pon[place] artery of right lower extremity with gangrene (HCC) [I70.261] Critical limb ischemia of right lower extremity (HCC) [I70.221]. Past Medical History: Diagnosis Date Coronary artery disease GERD (gastroesophageal reflux disease) History of VT (myocardial infarction) Hyperlipidemia Hypertension Limb ischemia PVD (peripheral vascular disease) ([facility]) Past Surgical History: Procedure Laterality Date ANGIOPLASTY / STENTING ILIAC BYPASS,FEMORAL-POPLITEAL Right 02/26/2025 Procedure: (RIGHT FEMORAL TO POPLITEAL ARTERY BYPASS GRAFT); Surgeon: Junior Noemi MD; Location:[facility]; Service: Vascular Surgery; Laterality: Right; CATARACT [...] By: Name and Date of Assisted by: medical technologist Precautions Weight-Bearing Status: No Restrictions Precautions: [...] Mobility Not assessed, patient ambulatory. Outcome Measures AM-PAC Basic Mobility Inpatient Short Form How much [...] uneven surfaces, negotiating stairs, cooking, cleaning, and registered nurse supervisor. These functional limitations put the patient at [...] access to the recommended DME/adaptive equipment. Goals [id number]: By the target date, patient will perform [id number]-[id number] with complete independence, utilizing no assistive device, to improve independence with bed mobility. Roc-[id number]-[id number]: By the target date, patient will perform [...] Following treatment, therapist communicated with nursing and bilingual case manager by completing communication whiteboard in room, regarding [...] s/p coronary artery stent 2017 - Hx VT - Legally blind - Nicotine use - [...] hospital today with known arthrosclerosis of the [place] artery of the right lower extremity with gangrene. Patient went to the operating room with vascular surgery for right femoral endarterectomy and right femoral to below-knee popliteal artery bypass. Postoperatively patient was transferred to the ICU and pulmonary/critical care consulted for ICU admission. Time of evaluation he is awake, alert, following all commands. States that he has some mild tenderness at his incision site but otherwise is doing well. No chest pain, cough, fever, chills. Hemodynamically not requiring vasopressors. On 2 L O2 with adequate saturation. No respiratory complaints. No family present at bedside. =======PROGRESS NOTES 02/27: Patient seen and examined at bed side. On 2 LPM supplemental O2 via NC. Alert and oriented X 3. Labs reviewed. CXR with out any acute any infiltrates. Mild leucocytosis. Mild anemia. Normal platelets. Normal creat with out good UOP. S/p right fem-pop bypass. PAST MEDICAL HISTORY: Past Medical History: Diagnosis Date Coronary artery disease GERD (gastroesophageal reflux disease) History of VT (myocardial infarction) Hyperlipidemia Hypertension Limb ischemia PVD [...] Product Identification Red Blood Cells Product Code [id number] Status Information Ready for issue Unit Number [id number] Blood Type 9500 Cross Match Results Compatible ECG 12 lead Status: None (In process) Collection Time: 02/26/25 11:13 AM Result Value Ref Range VENTRICULAR RATE EKG/MIN 75 BPM ATRIAL RATE (MCT) 75 BPM IA Interval 248 ms QRS-INTERVAL (MSEC) 150 ms QT Interval 432 ms QTC Interval 482 ms R AXIS (MCT) -17 degrees T Wave [place] 33 degrees [place] Diagnosis Sinus rhythm with 1st degree AV [...] POC-GLUCOSE 111 (H) 70 - 110 mg/dL Assistant Store Manager Operations [id number] CBC (Hemogram only) Status: Abnormal Collection Time: [...] extremity. -Peripheral vascular disease -RLE arthrosclerosis of pon[place] artery with gangrene -S/p right femoral enterectomy [...] needed to maintain systolic blood pressure less [id number]. Resume oral antihypertensive medications. Patient currently on [...] high level of medical decision making. Voice process safety management engineer technology ([employer]) is used for dictation of this note and sound-alike words might be erroneously placed despite reviewing the note for accuracy. Errors in dictation may reflect use of voice recognition software and not all errors in process safety management engineer may have been detected prior to signing. * Chaplain Oneal - 02/26/2025 10:50 AM EDT Spiritual Care Progress Note 02/26/25 1050 Clinical Encounter Type Visited With Patient and family Routine Visit Introduction Surgical Visit Pre-op Scientologist Encounters Scientologist Needs Prayer Patient Spiritual Care Encounters Coping [...] CABG & stent plemencemt, and atherosclerosis of pon[place] artery of right lower extremity with gangrene. Patient has been experiencing right lower extremity foot pain and numbness that worsens when lying down. Patient had a stent placed in the right lower extremity by a inspector wreath for a blockage but has been found [...] disease, GERD (gastroesophageal reflux disease), History of VT (myocardial infarction), Hyperlipidemia, Hypertension, Limb ischemia, and PVD (peripheral vascular disease) ([facility]). Surgical History He has a past surgical [...] results found. Assessment & Plan Atherosclerosis of pon[place] artery of right lower extremity with gangrene -to OR for scheduled procedure BRYON, at risk CAD s/p CABG Status post coronary stent, 2017 -ECG/SPECT 03/30/2022: LVEF 60-64% Bifascicular block Hx VT COPD HTN HLD PVD Legally blind Nicotine dependence documented in this encounter Consult Notes * Vicente Valadez MD - 02/27/2025 12:59 PM EDT Consults urology Attending physician: Junior franklin Other consultants: Anthony Wade pulmonary History of Present Illness: Tricia Larkin is a 64 y.o. male presenting with acute ischemia of his right lower extremity with gangrene and was taken emergently to surgery last night. Nursing staff placed a 14 Turkish coud?? tip catheter last night. It has been draining clear urine. He gives no prior urologic history. He has had multiple catheters during vascular procedures.. Past Medical History: He has a past medical history of Coronary artery disease, GERD (gastroesophageal reflux disease), History of VT (myocardial infarction), Hyperlipidemia, Hypertension, Limb ischemia, and PVD (peripheral vascular disease) ([facility]). Past Surgical History: He has a past [...] DIAGNOSIS: Pre-Op Diagnosis Codes: * Atherosclerosis of pon[place] artery of right lower extremity with gangrene (HCC) [I70.261] POST OP DIAGNOSIS: Post-Op Diagnosis Codes: * Atherosclerosis of pon[place] artery of right lower extremity with gangrene (HCC) [I70.261] SURGEON(S) / TRAINING ENGINEER SURGEON: Surgeons and Role: * Junior Noemi [...] on, uncluttered walking paths in room, adequate roomlighting, call light and overbed table within reach, bed in low position, wheels locked, side railsup per policy, and non-skid footwear provided. Outcome: [...] Routine 02/26/2025 2:00 PM EDT Atherosclerosis of pon[place] artery of right lower extremity with gangrene (HCC) IA BYP OTH/THN VEIN FEMORAL-POPLITEAL 02/26/2025 12:46 PM EDT Atherosclerosis of pon[place] artery of right lower extremity with gangrene [...] - 4.5 mg/dL 02/28/2025 9:04 AM EDT [facility] Blood Venipuncture / Unknown 02/28/2025 8:20 AM EDT 02/28/2025 8:43 AM EDT Iggy Felipe MD LAB BLOOD ORDERABLES Final Result [facility] [address] [phone] * Magnesium (02/28/2025 8:20 AM EDT) Magnesium 1.7 1.6 - 2.6 mg/dL 02/28/2025 9:04 AM EDT [facility] Blood Venipuncture / Unknown 02/28/2025 8:20 AM EDT 02/28/2025 8:43 AM EDT Iggy Felipe MD LAB BLOOD ORDERABLES Final Result [facility] [address] [phone] * (ABNORMAL) Comprehensive metabolic panel (02/28/2025 8:20 AM EDT) Sodium 136 136 - 145 meq/L 02/28/2025 9:04 AM EDT [facility] Potassium 3.9 3.4 - 5.1 meq/L 02/28/2025 9:04 AM EDT [facility] Chloride 103 98 - 112 meq/L 02/28/2025 9:04 AM EDT [facility] CO2 23 22 - 29 meq/L 02/28/2025 9:04 AM EDT [facility] Calcium 8.3(L) 8.4 - 10.2 mg/dL 02/28/2025 9:04 AM EDT [facility] Glucose 100 82 - 115 mg/dL 02/28/2025 9:04 AM EDT [facility] BUN 17.3 8.4 - 25.7 mg/dL 02/28/2025 9:04 AM EDT [facility] Creatinine 1.02 0.72 - 1.25 mg/dL 02/28/2025 9:04 AM EDT [facility] BUN/Creatinine 17 8 - 20 02/28/2025 9:04 AM EDT [facility] eGFR (mL/min/1.73m2) 83 >=60 mL/min/1. 73m2 02/28/2025 9:04 AM EDT [facility] Albumin 2.8(L) 3.5 - 5.0 g/dL 02/28/2025 9:04 AM EDT [facility] Alkaline Phosphatase 66 40 - 150 U/L 02/28/2025 9:04 AM EDT [facility] ALT 9 <=45 U/L 02/28/2025 9:04 AM EDT [facility] Comment: ALT2 reagent used for testing does not contain P5P supplementation and therefore may miss ALT elevations in patients with B6 deficiency. This population may be as high as 10% in the [place], with risk factors including malabsorption, drug interactions, and alcoholic hepatitis. AST 17 11 - 34 U/L 02/28/2025 9:04 AM EDT [facility] Comment: AST2 reagent used for testing does not contain P5P supplementation and therefore may miss AST elevations in patients with B6 deficiency. This population may be as high as 10% in the [place], with risk factors including malabsorption, drug interactions, and alcoholic hepatitis. Total Bilirubin 0.9 0.2 - 1.2 mg/dL 02/28/2025 9:04 AM EDT [facility] Protein, Total 6.4 6.4 - 8.3 g/dL 02/28/2025 9:04 AM EDT [facility] Globulin 3.6 2.5 - 4.1 g/dL 02/28/2025 9:04 AM EDT [facility] Anion Gap 14(H) 4 - 12 02/28/2025 9:04 AM EDT [facility] A/G Ratio 0.8 0.7 - 1.9 02/28/2025 9:04 AM EDT [facility] Osmolality Calc 273.7 mOsm/kg 9:04 AM T [facility] Blood Venipuncture / Unknown 02/28/2025 8:20 AM EDT 02/28/2025 8:43 AM EDT us Iggy Felipe MD LAB BLOOD ORDERABLES Final Result [facility] [address] [phone] * (ABNORMAL) CBC with automated diff (02/28/2025 8:19 AM EDT) WBC 9.9(H) 4.2 - 9.1 K/ L 02/28/2025 8:46 AM EDT [facility] RBC 3.27(L) 4.63 - 6.08 M/ L 02/28/2025 8:46 AM EDT [facility] Hemoglobin 10.1(L) 13.7 - 17.5 GM/DL 02/28/2025 8:46 AM EDT [facility] Hematocrit 30.7(L) 40.1 - 51.0 % 02/28/2025 8:46 AM T [facility] MCV 94(H) 79 - 92 fL 02/28/2025 8:46 AM EDT [facility] MCH 30.9 25.7 - 32.2 pg 02/28/2025 8:46 AM T [facility] MCHC 32.9 32.3 - 36.5 GM/DL 02/28/2025 8:46 AM EDT [facility] RDW 13.2 11.6 - 14.4 % 02/28/2025 8:46 AM [facility] Platelets 164 140 - 375 K/CU MM 02/28/2025 8:46 AM T [facility] MPV 11.2 9.4 - 12.4 fL 02/28/2025 8:46 AM [facility] % Neutros 70(H) 34 - 68 % 02/28/2025 8:46 AM EDT [facility] % Lymphs 17(L) 22 - 53 % 02/28/2025 8:46 AM EDT [facility] % Monos 12 5 - 12 % 02/28/2025 8:46 AM EDT [facility] % Eos 0(L) 1 - 7 % 02/28/2025 8:46 AM EDT [facility] % Baso 0 0 - 1 % 02/28/2025 8:46 AM EDT [facility] NRBC Absolute <0.01 0 - 0.012 K/ul 02/28/2025 8:46 AM EDT [facility] # Neutros 6.97(H) 1.78 - 5.38 K/ L 02/28/2025 8:46 AM EDT [facility] # Lymphs 1.68 1.32 - 3.57 K/ L 02/28/2025 8:46 AM EDT [facility] # Monos 1.14(H) 0.30 - 0.82 K/ L 02/28/2025 8:46 AM EDT [facility] # Eos 0.04 0.04 - 0.54 K/ L 02/28/2025 8:46 AM EDT [facility] # Baso <0.03 0.01 - 0.08 K/ L 02/28/2025 8:46 AM EDT [facility] Immature Granulocytes-Re lative 0.50(H) 0.01 - 0.43 % 02/28/2025 8:46 AM EDT [facility] # IG 0.05(H) 0.00 - 0.03 K/uL 02/28/2025 8:46 AM EDT [facility] Blood Venipuncture / Unknown 02/28/2025 8:19 AM EDT 02/28/2025 8:43 AM EDT Narrative [facility] - 02/28/2025 8:46 AM EDT [...] Blast? Flag noted Atypical Lymph flag noted us Iggy Felipe MD LAB BLOOD ORDERABLES Final Result [facility] [address] [phone] * (ABNORMAL) CALCIUM Ionized (02/28/2025 5:08 AM EDT) Calcium Ionized 0.97(L) 1.12 - 1.32 mmol/L 02/28/2025 5:47 AM EDT [facility] Blood Venipuncture / Unknown 02/28/2025 5:08 AM EDT 02/28/2025 5:39 AM EDT Iggy Felipe MD LAB BLOOD ORDERABLES Final Result Performing Organization Address [facility] Co de Phone Number [facility] [address] [phone] * ECG 12 lead (02/27/2025 5:13 PM EDT) VENTRICULAR RATE EKG/MIN 91 BPM GE MUSE ATRIAL RATE (MCT) 0 BPM GE MUSE QRS-INTERVAL (MSEC) 134 ms GE MUSE QT Interval 402 ms GE MUSE QTC Interval 494 ms GE MUSE R AXIS (MCT) -19 degrees GE MUSE T Wave [place] 40 degrees GE MUSE [place] Diagnosis Sinus rhythm with 1st degree AV block Right bundle branch block Abnormal ECG No previous ECGs available Confirmed by Leeann Redmond MD (2019) on 02/28/2025 7:15:10 PM GE MUSE 02/27/2025 5:13 PM EDT 02/28/2025 7:15 PM EDT Chica Hernadez DELINQUENT ACCOUNT CLERK ECG ORDERABLES Final Result Performing Organization Address [facility] Co de Phone Number GE MUSE * XR [...] - 145 meq/L 02/27/2025 3:15 AM EDT [facility] Potassium 4.3 3.4 - 5.1 meq/L 02/27/2025 3:15 AM EDT [facility] CO2 22 22 - 29 meq/L 02/27/2025 3:15 AM EDT [facility] Chloride 105 98 - 112 meq/L 02/27/2025 3:15 AM EDT [facility] Glucose 106 82 - 115 mg/dL 02/27/2025 3:15 AM EDT [facility] BUN 15.7 8.4 - 25.7 mg/dL 02/27/2025 3:15 AM EDT [facility] Creatinine 1.01 0.72 - 1.25 mg/dL 02/27/2025 3:15 AM EDT [facility] BUN/Creatinine 16 8 - 20 02/27/2025 3:15 AM EDT [facility] Calcium 8.4 8.4 - 10.2 mg/dL 02/27/2025 3:15 AM EDT [facility] Anion Gap 12 4 - 12 02/27/2025 3:15 AM EDT [facility] eGFR (mL/min/1.73m2) 84 >=60 mL/min/1.7 3m2 02/27/2025 3:15 AM EDT [facility] Osmolality Calc 271.6 mOsm/kg 3:15 AM EDT [facility] Blood Venipuncture / Unknown 02/27/2025 2:45 AM EDT 02/27/2025 2:51 AM EDT Juan Carlos [facility] MD LAB BLOOD ORDERABLES Final Res ult [facility] [address] [phone] * (ABNORMAL) CBC (Hemogram only) (02/27/2025 2:45 AM EDT) WBC 11.4(H) 4.2 - 9.1 K/ L 02/27/2025 2:53 AM EDT [facility] RBC 3.58(L) 4.63 - 6.08 M/ L 02/27/2025 2:53 AM EDT [facility] Hemoglobin 11.1(L) 13.7 - 17.5 GM/DL 02/27/2025 2:53 AM EDT [facility] Hematocrit 33.6(L) 40.1 - 51.0 % 02/27/2025 2:53 AM EDT [facility] MCV 94(H) 79 - 92 fL 02/27/2025 2:53 AM EDT [facility] MCH 31.0 25.7 - 32.2 pg 02/27/2025 2:53 AM EDT [facility] MCHC 33.0 32.3 - 36.5 GM/DL 02/27/2025 2:53 AM EDT [facility] RDW 13.3 11.6 - 14.4 % 02/27/2025 2:53 AM EDT [facility] Platelets 193 140 - 375 K/CU MM 02/27/2025 2:53 AM EDT [facility] MPV 11.2 9.4 - 12.4 fL 02/27/2025 2:53 AM EDT [facility] Blood Venipuncture / Unknown 02/27/2025 2:45 AM EDT 02/27/2025 2:51 AM EDT Juan Carlos [facility] LAB BLOOD ORDERABLES Final Res ult [facility] [address] [phone] * Tissue Exam (02/26/2025 2:00 PM EDT) AP RESULT See Note: [facility] Comment: [facility] [address] [place] [address] or [phone] Chris Perez M.D., [employer] Dealer PATIENT NAME LABORATORY NO. 17[address] TRICIA LARKIN [id number] AGE SEX SSN CLIENT REF # [facility] 64 [id number] 1 [facility] REQUESTING Joselito ATTENDING M.D. COPY TO. [address] DATE COLLECTED DATE RECEIVED DATE REPORTED 02/26/2025 02/26/2025 02/28/2025 DIAGNOSIS: ARTERY, ATHEROMATOUS PLAQUE, RIGHT FEMORAL: Moderately calcified atheromatous plaque [facility] CLINICAL HISTORY: Atherosclerosis of [place] arteries of extremities with gangrene, right leg SPECIMENS RECEIVED: ARTERY, ATHEROMATOUS PLAQUE, RIGHT FEMORAL MICROSCOPIC DESCRIPTION: Tissue blocks are prepared and slides are examined microscopically on all specimens. See diagnosis for details. Professional interpretation rendered by Koby Angel M.D., F.C.A.P. at [employer], [address] [place] [address], [place] [address]. GROSS DESCRIPTION: Received in formalin labeled right femoral plaque are multiple fragments of sanchez-yellow rubbery to densely calcified atheromatous material aggregating 4.5 x 1.8 x 0.8 cm. A small amount of thrombus material is noted upon sectioning. Insurance Salesman sections of calcified tissue are submitted in block A1 following decalcification. MTS REVIEWED, DIAGNOSED AND ELECTRONICALLY SIGNED BY: Koby Angel M.D., FAlejandroP. CPT CODES: 33117, 16010 Tissue PLAQUE / Unknown 02/26/2025 2:00 PM EDT Junior Noemi TOPETE PATHOLOGY/CYTOLOGY ORDERABLES Final Result Performing Organization Address [facility]/ZIP Co de Phone Number [facility] [address] * (ABNORMAL) Glucose, Nova Meter (02/26/2025 11:32 AM EDT) POC-GLUCOSE 111(H) 70 - 110 mg/dL 02/26/2025 11:33 AM EDT [facility] Comment: In the event of poor peripheral blood flow, venous or arterial blood should be used due to the potential of erroneous results. Notified Nurse RBV Assistant Store Manager Operations [phone] 02/26/2025 11:33 AM EDT [facility] Blood WHOLE BLOOD / Unknown 02/26/2025 11:32 AM EDT 02/26/2025 11:33 AM EDT Narrative [facility] - 02/26/2025 11:33 AM EDT Assistant Store Manager Operations ID is - [id number] Junior Noemi TOPETE POINT OF CARE TEST ORDERABLES Final Result Performing Organization Address [facility] Co de Phone Number [facility] [address] [phone] * ABO/RH Confirmation/Retype (02/26/2025 11:29 AM EDT) RETYPE O Negative 02/26/2025 11:13 AM EDT [facility] ([place]) Blood Venipuncture / Unknown 02/26/2025 11:29 AM EDT 02/26/2025 11:37 AM EDT Raciel Pineda MD [facility] TEST ORDERA BLES Final Result Performing Organization Address City/[facility]/ZIP Co de Phone Number [facility] ([place]) [address] [place] [address], [facility] [phone] * Type and Screen (02/26/2025 11:27 AM EDT) ABO/Rh O Negative 02/26/2025 11:04 AM EDT [facility] [place] Antibody Screen Negative 02/26/2025 11:04 AM EDT [facility] [place] HISTCHK HIST CHECK PERFORMED 02/26/2025 11:04 AM EDT [facility] [place] Blood Venipuncture / Unknown 02/26/2025 11:27 AM EDT 02/26/2025 11:37 AM EDT us Raciel Pineda MD [facility] TEST ORDERA BLES Final Result [facility] ([place]) [address] [place] [address], [facility] [phone] * EKG-SCANNED (02/26/2025) Narrative 02/26/2025 Ordered by an unspecified provider. us Default Scanning Provider SCAN ORDERS Final Result documented in this encounter Visit Diagnoses Diagnosis Critical limb ischemia of right lower extremity (HCC)- Primary Atherosclerosis of [place] artery of right lower extremity with gangrene (HCC) Atherosclerosis of [place] artery of right lower extremity with gangrene [...] Given 02/26/2025 8:49 PM EDT 100 mg heparin 1,000 Units/mL injection As needed, Starting on Tue02/26/25 at 1359, Intra-op Given 02/26/2025 1:59 PM EDT 1,000 Units hydroCHLOROthiazide (HYDRODIURIL) tablet 25 mg 25 mg [...] Given 02/27/2025 9:15 AM EDT 50 mg niCARdipine (CARDENE) 25 mg in sodium chloride 0.9 % (NS) 250 mL infusion (CMPD) 0-15 mg/hr Titrated (0-150 mL/hr), intravenous, Starting on Tue02/26/25 at 1600 oxyCODONE-acetaminophen (PERCOCET) 5-325 mg per tablet 1 [...] 8:49 PM EDT 40 mg sodium chloride (NS) 0.9 % irrigation solution As needed, Starting on Tue02/26/25 at 1400, Intra-op Given 02/26/2025 2:00 PM EDT 100 mLs sodium chloride 0.9 % infusion 100 mL/hr [...] tube. 1416 (Given - Provider: Lanny Coburn RN)2153 (Given - Provider: Watson Blount RN) 112 (Given - Provider: Ruby Henry RN) aspirin tablet 325 mg Daily, oral, First dose on Tue02/27/25 at 0900, Phase II/On Unit 0915 (Given - Provider: Uziel Barnes RN) 1119 (Given - Provider: Ruby Henry RN) atorvastatin (LIPITOR) tablet 40 mg 40 mg Daily, oral, First dose on Tue02/27/25 at 0900, Phase II/On Unit 0915 (Given - Provider: Uziel Barnes RN) 1119 (Given - Provider: Ruby Henry RN) bethanechol (URECHOLINE) tablet 10 mg 10 mg 3 times daily, oral, First dose on Tue02/27/25 at 1500, For 5 days 1415 (Given - Provider: Lanny Coburn RN)2152 (Given - Provider: Watson Blount RN) 112 (Given - Provider: Ruby Henry RN)1500 (Due) ceFAZolin (ANCEF) 2 g in [...] II/On Unit 2048 (Given - Provider: Rocio Cunningham RN) 0915 (Given - Provider: Uziel Barnes RN)2152 (Given - Provider: Watson Blount RN) 112 (Given - Provider: Ruby Henry RN) clopidogreL (PLAVIX) tablet 75 mg 75 mg Daily, oral, First dose on Tue02/27/25 at 0900, Look-alike/Sound-sven e medication, Phase II/On Unit 914 (Given - Provider: Uziel Barnes, RN) 1119 (Given - Provider: Ruby Henry, RN) docusate sodium (COLACE) capsule 100 mg 100 mg Daily, oral, First dose on Tue02/26/25 at 1999, * DO NOT CRUSH THIS DOSAGE FORM *, Phase II/On Unit 2048 (Given - Provider: Rocio Cunningham, HERIBERTO) 914 (Not Given - Provider: Uziel Barnes RN - Reason: Patient/family refused) 1119 (Given - Provider: Ruby Henry RN) famotidine (PEPCID) tablet 20 mg (COMPLETED) 20 mg Once, oral, On Tue02/26/25 at 1130, For 1 dose, Pharmacist to renally dose if CrCl is less than 50 mL/min or on CRRT., Pre-op 1134 (Given - Provider: Camila Marquez RN) fentaNYL PF (SUBLIMAZE) injection 100 mcg (COMPLETED) 100 mcg Once, intravenous, On Tue02/26/25 at 1130, For 1 dose, Pre-op 1144 (Given - Provider: Camila Marquez, HERIBERTO) hydroCHLOROthiazide (HYDRODIURIL) tablet 25 mg(Linked Group 1) 25 mg Daily, oral, First dose on Tue02/26/25 at 1999 2048 (Given - Provider: Rocio Cunningham RN) 914 (Given - Provider: Uziel Barnes, HERIBERTO) 112 (Given - Provider: Ruby Henry, HERIBERTO) loratadine [...] (Tablet may be split), Phase II/On Unit 0915 (Given - Provider: Uziel Barnes, RN) 1120 (Given - Provider: Ruby Henry, HERIBERTO) midazolam (VERSED) injection 2 mg (COMPLETED) 2 mg Once, intravenous, On Tue02/26/25 at 1130, For 1 dose, Look-alike/Sound-sven e medication. Contains Benzyl Alcohol, Pre-op 1144 (Given - Provider: Camila Marquez, HERIBERTO) pantoprazole (PROTONIX) EC tablet 40 mg 40 mg Daily, oral, First dose on Tue02/26/25 at 2000, Therapeutic Interchange for Proton Pump Inhibitors. * DO NOT CRUSH THIS DOSAGE FORM *, Phase II/On Unit 2048 (Given - Provider: Rocio Cunningham, HERIBERTO) 0915 (Given - Provider: Uziel Barnes, HERIBERTO) 1120 (Given - Provider: Ruby Henry, HERIBERTO) tamsulosin (FLOMAX) capsule 0.4 mg 0.4 mg Daily, oral, First dose on Tue02/27/25 at 1400, * DO NOT CRUSH THIS DOSAGE FORM * 1415 (Given - Provider: Lanny Coburn RN) 1120 (Given - Provider: Ruby Henry, HERIBERTO) valsartan (DIOVAN) tablet 320 mg(Linked Group 1) 320 mg Daily, oral, First dose on Tue02/26/25 at 2000 2049 (Given - Provider: Rocio Cunningham, HERIBERTO) 1052 (Given - Provider: Uziel Barnes, HERIBERTO) 0900 (Due) Continuous Medication Order 02/26/2025 02/27/2025 02/28/2025 lactated Ringer's infusion 100 mL/hr Continuous, intravenous, Starting on Tue02/26/25 at 1130 1136 (New Bag - Provider: Camila Marquez, HERIBERTO) niCARdipine (CARDENE) 25 mg in sodium chloride [...] provider, PACU 1807 (Given - Provider: Saadia Booth RN) heparin 1,000 Units/mL injection (CANCELED) As needed, [...] medication, PACU 1706 (Given - Provider: Saadia Booth RN) oxyCODONE-acetaminophen (PERCOCET) 5-325 mg per tablet 1 tablet 1 tablet Every 4 hours PRN, oral, moderate pain (4-6), Starting on Tue02/26/25 at 1921, Recommended maximum dose of acetaminophen is 4000 mg from all sources in 24 hours Look-alike/Sound-alike medication, Phase II/On Unit 2225 (Given - Provider: Rocio Cunningham RN) 0513 (Given - Provider: Rocio Cunningham RN)2211 (Given - Provider: Watson Blount RN) 1119 (Given - Provider: Ruby Henry, HERIBERTO) sodium chloride (NS) 0.9 % irrigation solution (CANCELED) As needed, Starting on Tue02/26/25 at 1400, Intra-op 1400 (Given - Provider: Junior Noemi MD) Linked Groups Order Group 1: valsartan (DIOVAN) tablet 320 mgJump to med 320 mg Daily, oral, First dose on Tue02/26/25 at 1999 And hydroCHLOROthiazide (HYDRODIURIL) tablet 25 mgJump to [...] post-op documented in this encounter Care Teams Quality Engineer Medical Device Relationship Specialty Start Date End Date Tony Roblero MD [address] [place] [id number] PCP - General Internal Medicine 02/21/25 documented as of this encounter
--- OUTSIDE RECORDS SUMMARY | 2025-02-26 12:46 | XMS_ITS | Encounter Summary ---
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) Atherosclerosis of [place] artery of right lower extremity Procedures NE BYP OTH/THN VEIN FEMORAL-POPLITEAL NE BYPASS W/VEIN FEMORAL-POPLITEAL NE TEAEC W/WO PATCH GRAFT COMMON FEMORAL CREATION, BYPASS, ARTERIAL, FEMORAL TO POPLITEAL, USING GRAFT Junior Franklin MD [address] [facility] [place] [address] Phone: tel: fax: Referral ID Status Reason Start Date Expiration Date Visits Re quested Visits Authorized [id number] 02/19/2025 1 3 Encounter Details Date Type Department Care Team (Late st Contact Info) Description 02/26/2025 12:46 PM EDT Anesthesia Event [facility] Operating Room [address] [place] [address] Raciel Pineda MD [address], [place] [id number] Danni Lopez CRNA [address] [place] [address] Anesthesia Record Procedure Summary Procedure Name Responsible Anesthesiologist Anesthesia Start Time Anesthesia Stop Time (RIGHT FEMORAL TO POPLITEAL ARTERY BYPASS GRAFT) (Right) Raciel Pineda MD 02/26/25 1246 02/26/25 1530 Events Date Time Event Comment 02/26/2025 1145 1246 An Start Patient identif ied and chart reviewed. 1246 Pre-Induction Eval FDA anest hesia machine pre-use checkout completed. Patient status reassessed prior to start of anesthesia care. 1246 An Start Data Anesthesia mac pauline and monitors checked. 1300 An Induction 1303 An Intubation 1310 Anesthesia Ready 1318 Quick Note Surgical timeou t 1505 Intraop Handoff Handoff Perf ormed per Protocol: 1) Pt Name 2) ASA/Allergies 3) Anesthetic Type 4) Procedure/Surgeon/Anesthesiologist 5) Prior History 6) Isolation status 7) Intra-op Problems/Meds 8) Airway Description/Difficulty 9) IVs/Fluids/I&O 10) Anesthesia Concerns/Surgeon Requests 11) Pre-op Sedation/Antibiotics Administered 12) Post-op Plan/Orders 13) Questions and Concerns Addressed 1513 An Extubation 1521 an stop data 1525 Handoff to Receiving I compl eted my handoff to the receiving clinician during which we: 1. Identified the patient. 2. Identified the responsible provider. 3. Reviewed the pertinent medical history. 4. Discussed the surgical course. 5. Reviewed intra-op anesthesia management and issues during anesthesia. 6. Set expectations for post-procedure period. 7. Allowed opportunity for questions and acknowledgement of understanding. 1530 An Stop Meds Name Total fentaNYL (SUBLIMAZE) injection 100 mcg glycopyrrolate (ROBINUL) injection 0.6 m g heparin injection 1,000 units/mL for IV bolus/dialysis lock 7,000 Units propofol (DIPRIVAN) injection 10 mg/mL b olus 150 mg protamine IV push 60 mg rocuronium (ZEMURON) 100 mg/10 mL inject ion 70 mg phenylephrine (ALEK-SYNEPHRIN E) 20 mg in sodium chloride 0.9 % (NS) 250 mL infusion 3,965 mcg lidocaine (XYLOCAINE) injection 2% 100 m g phenylephrine (ALEK-SYNEPHRINE) injection 550 mcg neostigmine (PROSTIGMINE) 1 mg/mL inject ion 4 mg ceFAZolin (ANCEF) 2 g in sodium chloride 0.9 % (NS) MBP 50 mL IVPB 2 g vasopressin (VASOSTRICT) injection 1.5 U nits lactated ringers (LR) infusion 1,000 mL albumin human bottle 5% 250 mL * Agents Name O2 N2O Air SEVOFLURANE DESFLURANE * Blood No blood administrations on file. Lines, Drains, and Airways Type Details Placement Removal Wound 02/26/25; 1418; Inci aziza; Leg; Right 02/26/25 1418 by Katirna Li RN Wound 02/26/25; 1418; Inci aziza; Groin; Right 02/26/25 1418 by Katrina Li RN Peripheral IV Placement Date: 12/18; Placement Time: 1122; Size: 18 G; Orientation: Anterior, Proximal, Right; Location: Forearm; Site Prep: Chlorhexidine ; Insertion attempts: 1; Securement Method: Taped; Removal Date: 03/04/25; Removal Time: 17502/26/25 1122 by Camila Marquez RN 03/04/25 1753 by Automatic Discharge Provider Peripheral IV Placement Date: 12/18; Placement Time: 1129; Size: 20 G; Orientation: Anterior, Right; Site Prep: Chlorhexidine ; Insertion attempts: 1; Securement Method: Taped; Removal Date: 03/04/25; Removal Time: 17502/26/25 1129 by Camila Marquez RN 03/04/25 1753 by Automatic Discharge Provider Arterial Line Placement Date: 12/18; Placement Time: 1145 (created via procedure documentation); Orientation: Left; Location: Radial; Removal Date: 02/27/25; Removal Time: 0300 02/26/25 1145 by Raciel Pineda MD 02/27/25 0300 by Rocio Cunningham RN ETT Placement Date 02/26; Placement Time 1303 (created via procedure documentation); Airway Size 7.5; Airway Cuffed Yes; Removal Date 02/26/25; Removal Time 1513 02/26/25 1303 by Ramos Beck 02/26/25 1513 by Ana Pyle CRNA documented in this encounter Social History Tobacco Use Types Packs/Day Years [...] on file documented as of this encounter OR Notes * Anesthesia Postprocedure Evaluation - Ana Pyle CRNA - 02/26/2025 3:30 PM EDT Patient: Ronal Larkin Procedure Summary Date: 02/26/25 Room / Location: [facility] OR [facility] OPERATING ROOM Anesthesia Start: 1246 Anesthesia Stop: Procedure: (RIGHT FEMORAL TO POPLITEAL ARTERY BYPASS GRAFT) (Right) Diagnosis: 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 Wt 107 kg (235 lb 12.8 oz) BMI 31.98 kg/m?? Anesthesia Post Evaluation Patient location during evaluation: PACU Patient participation: complete - patient participated Level of consciousness: awake Pain score: 0 Pain management: adequate Multimodal analgesia pain management approach Airway patency: patent Cardiovascular status: stable Respiratory status: face mask Hydration status: stable Color: [place] Activity: Moves 4 extremities Inotropes/Vasopressors: N/A No notable events documented. Ana Pyle CRNA 02/26/2025 3:30 PM EDT * Anesthesia Procedure Notes - Ramos Beck - 02/26/2025 1:24 PM EDTAssociated Order(s): Intubation Intubation Authorized by: Dean Logan MD Performed by: Ramos Beck Date/Time: 02/26/2025 1:03 PM Urgency: elective Indications and Patient Condition Indications for airway management: anesthesia and airway protection Spontaneous Ventilation: absent Sedation level: general anesthesia Preoxygenated: yes Patient position: sniffing Planned trial extubation: yes Final Airway Details Final airway type: endotracheal airway Endotracheal tube type: ETT Cuffed: yes Successful intubation technique: direct laryngoscopy Facilitating devices/methods: intubating stylet and cricoid pressure Endotracheal tube insertion site: oral Blade: Charlene Blade size: #4 ETT size (mm): 7.5 Cormack-Lehane Classification: grade IIa - partial view of glottis Placement verified by: chest auscultation and capnometry Cuff volume (mL): 10 Measured from: lips ETT to lips (cm): 24 Number of attempts at approach: 1 Additional Comments Atraumatic Intubation. Lips, gums, and dentition unchanged and as preop. Bilateral BS and chest rise, ETCO2 confirmed Cosigned by Kaylin Naidu CRNA at 02/26/2025 1:38 PM EDT * Anesthesia Procedure Notes - Raciel Pineda MD - 02/26/2025 11:45 AM EDT Associated Order(s): Arterial Line Arterial Line Authorized by: Raciel Pineda MD Performed by: Raciel Pineda MD Date/Time: 02/26/2025 11:45 AM Guidance:surface landmarks Patient location: pre-op Indication: continuous blood pressure monitoring Procedure Detail Catheter size: 20 G Catheter length: 1 and 3/4 inch Catheter type: Arrow Seldinger technique used. Site: left radial artery Securement method: suture Events: patient tolerated procedure well with no complications Comments Attempt x 1, no complications * Anesthesia Preprocedure Evaluation - Dean Logan MD - 02/21/2025 9:27 AM EDT ANESTHESIA PREOPERATIVE EVALUATION Patient: Ronal Larkin Date/Time: 02/26/25 1230 Procedure: (RIGHT FEMORAL TO POPLITEAL ARTERY BYPASS GRAFT) (Right) Location: [facility] Surgeons: Junior Noemi MD Vitals: 02/21/25 0913 02/21/25 0914 BP: (!) 149/79 Pulse: 74 Resp: 18 Temp: 96.8 ??F (36 ??C) SpO2: 98% Weight: 116.6 kg (257 lb) Height: 1.829 m (6') No Known Allergies Current Outpatient Medications Medication Instructions aspirin 325 mg, oral, Daily atorvastatin (LIPITOR) 40 mg, Daily cilostazoL (PLETAL) 100 mg, 2 times daily clopidogreL (PLAVIX) 75 mg, oral, Daily docusate sodium (COLACE) 100 mg, oral, Daily loratadine (CLARITIN) 10 mg, oral, Daily metoprolol succinate (TOPROL-XL) 50 mg, Daily multivitamin per tablet 1 tablet, oral, Daily omeprazole 20 mg, oral, Daily valsartan-hydrochlorothiazide (DIOVAN-HCT) 320-25 mg per tablet 1 tablet, oral, Daily INPATIENT MEDICATIONS Problem List as of 02/21/2025 Smoker Hx mi Cabg and stent CAD History of [place] at age 35 Prior CABG x2, 1994 at [facility] Status post coronary stent, 2016 at [facility] Echocardiogram 03/12/2022: LVEF 55%. Mild biatrial enlargement, normal LV size, mild LVH, no regional wall motion abnormalities. Trace MR and TR. Bifascicular block PAD Acute onset symptoms 12/2024 [facility] peripheral angiogram 12/2024, possible stent to right iliac artery, data deficit Past Surgical History: Procedure Laterality Date ANGIOPLASTY / STENTING ILIAC CATARACT EXTRACTION, BILATERAL CORONARY ANGIOPLASTY WITH STENT PLACEMENT CORONARY ARTERY BYPASS GRAFT 1990s HERNIA REPAIR Social History Tobacco Use Smoking status: Every Day Types: Cigarettes Smokeless tobacco: Never Vaping Use Vaping status: Never Used Substance Use Topics Alcohol use: Not Currently Drug use: Never Echo Results (last 7 days) No results found for the last 168 hours. Chemistry No results found for: NA , K , CL , CO2 , BUN , CREATININE , GLU No results found for: CALCIUM , ALKPHOS , AST , ALT , BILITOT No results found for: WBC , HGB , HCT , MCV , PLT Clinical information reviewed: No data recorded Physical Exam Airway Mallampati: III TM distance: >3 FB Neck ROM: full Cardiovascular - normal exam Dental - normal exam Pulmonary - normal exam Abdominal Anesthesia Plan ASA 3 general (jed) intravenous induction Anesthetic plan and risks discussed with patient. documented in this encounter Plan of Treatment Not on file documented as of this encounter Procedures Procedure Name Priority Date/Time Associated Diagnosis Comments ANESTHESIA INTUBATION Routine 02/26/2025 1:03 PM EDT HC ARTERIAL CATH SAMP/MNTR Routine 02/26/2025 11:45 AM EDT documented in this encounter Results * AN SINGLE LUMEN INTUBATION (02/26/2025 1:03 PM EDT) Narrative Kaylin Naidu CRNA - 02/26/2025 1:03 PM EDT Ramos Beck 02/26/2025 1:27 PM Intubation Authorized by: Dean oLgan MD Performed by: Ramos Beck Date/Time: 02/26/2025 1:03 PM Urgency: elective Indications and Patient Condition Indications for airway management: anesthesia and airway protection Spontaneous Ventilation: absent Sedation level: general anesthesia Preoxygenated: yes Patient position: sniffing Planned trial extubation: yes Final Airway Details Final airway type: endotracheal airway Endotracheal tube type: ETT Cuffed: yes Successful intubation technique: direct laryngoscopy Facilitating devices/methods: intubating stylet and cricoid pressure Endotracheal tube insertion site: oral Blade: Charlene Blade size: #4 ETT size (mm): 7.5 Cormack-Lehane Classification: grade IIa - partial view of glottis Placement verified by: chest auscultation and capnometry Cuff volume (mL): 10 Measured from: lips ETT to lips (cm): 24 Number of attempts at approach: 1 Additional Comments Atraumatic Intubation. Lips, gums, and dentition unchanged and as preop. Bilateral BS and chest rise, ETCO2 confirmed us Dean Logan MD ANESTHESIA ORDERABLES Final Resu lt * HC ARTERIAL CATH SAMP/MNTR (02/26/2025 11:45 AM EDT) Narrative Raciel Pineda MD - 02/26/2025 11:45 AM EDT Raciel Pineda MD 02/26/2025 11:46 AM Arterial Line Authorized by: Raciel Pineda MD Performed by: Raciel Pineda MD Date/Time: 02/26/2025 11:45 AM Guidance:surface landmarks Patient location: pre-op Indication: continuous blood pressure monitoring Procedure Detail Catheter size: 20 G Catheter length: 1 and 3/4 inch Catheter type: Arrow Seldinger technique used. Site: left radial artery Securement method: suture Events: patient tolerated procedure well with no complications Comments Attempt x 1, no complications us Raciel Pineda MD ANESTHESIA ORDERABLES Kathrin l Result documented in this encounter Visit Diagnoses Not on filedocumented in this encounter Administered Medications Inactive Administered Medications - up to 3 most recent administrations Medication Order MAR Action Action Date Dose Rate Site albumin human 5 % IV Continuous PRN, intravenous, Starting on Tue02/26/25 at 1319, Anesthesia Intra-op New Bag 02/26/2025 1:19 PM EDT ceFAZolin (ANCEF) 2 g in sodium chloride 0.9 % (NS) MBP 50 mL IVPB 2 g Once, intravenous, Administer over 30 Minutes, On Tue02/26/25 at 1130, For 1 dose, Administer within 60 minutes of incision or procedure start., Pre-op, Please choose an indication: Surgical Prophylaxis New Bag 02/26/2025 1:14 PM EDT 2 g fentaNYL PF (SUBLIMAZE) injection As needed, intravenous, Starting on Tue02/26/25 at 1300, Anesthesia Intra-op Given 02/26/2025 3:08 PM EDT 25 mcg Given 02/26/2025 1:35 PM EDT 25 mcg Given 02/26/2025 1:00 PM EDT 50 mcg glycopyrrolate (ROBINUL) injection As needed, intravenous, Starting on Tue02/26/25 at 1511, Anesthesia Intra-op Given 02/26/2025 3:11 PM EDT 0.6 mg heparin 1,000 Units/mL injection As needed, intravenous, Starting on Tue02/26/25 at 1351, Anesthesia Intra-op Given 02/26/2025 1:51 PM EDT 7,000 Units lactated Ringer's infusion Continuous PRN, intravenous, Starting on Tue02/26/25 at 1246, Anesthesia Intra-op New Bag 02/26/2025 2:52 PM EDT New Bag 02/26/2025 12:46 PM EDT lidocaine (XYLOCAINE) injection 2% As needed, intravenous, Starting on Tue02/26/25 at 1300, Anesthesia Intra-op Given 02/26/2025 1:00 PM EDT 100 mg neostigmine methylsulfate (PROSTIGMINE) injection As needed, intravenous, Starting on Tue02/26/25 at 1511, Anesthesia Intra-op Given 02/26/2025 3:11 PM EDT 4 mg phenylephrine (ALEK-SYNEPHRINE) 20 mg in sodium chloride 0.9 % (NS) 250 mL infusion Continuous PRN, intravenous, Starting on Tue02/26/25 at 1306, Anesthesia Intra-op Rate/Dose Change 02/26/2025 3:03 PM EDT 45 mcg/min 33.75 mL/hr Restarted 02/26/2025 2:48 PM EDT 60 mcg/min 45 mL/hr Rate/Dose Change 02/26/2025 2:39 PM EDT 60 mcg/min 45 mL/h r phenylephrine (ALEK-SYNEPHRINE) injection As needed, intravenous, Starting on Tue02/26/25 at 1302, Anesthesia Intra-op Given 02/26/2025 2:55 PM EDT 100 mcg Given 02/26/2025 2:50 PM EDT 100 mcg Given 02/26/2025 2:46 PM EDT 100 mcg propofol (DIPRIVAN) injection 10 mg/mL bolus As needed, intravenous, Starting on Tue02/26/25 at 1300, Anesthesia Intra-op Given 02/26/2025 1:00 PM EDT 150 mg protamine injection As needed, intravenous, Starting on Tue02/26/25 at 1442, Anesthesia Intra-op Given 02/26/2025 2:51 PM EDT 10 mg Given 02/26/2025 2:50 PM EDT 10 mg Given 02/26/2025 2:46 PM EDT 10 mg rocuronium (ZEMURON) injection As needed, intravenous, Starting on Tue02/26/25 at 1301, Anesthesia Intra-op Given 02/26/2025 2:19 PM EDT 10 mg Given 02/26/2025 1:49 PM EDT 10 mg Given 02/26/2025 1:01 PM EDT 50 mg vasopressin (VASOSTRICT) injection As needed, buccal, Starting on Tue02/26/25 at 1423, Anesthesia Intra-op Given 02/26/2025 2:43 PM EDT 0.5 Units Given 02/26/2025 2:36 PM EDT 0.5 Units Given 02/26/2025 2:23 PM EDT 0.5 Units documented in this encounter Care Teams Certified Midwife Relationship Specialty Start Date End Date Tony Roblero MD [address] [place] [address] PCP - General Internal Medicine 02/21/25 documented as of this encounter
--- OUTSIDE RECORDS SUMMARY | 2025-03-26 12:12 | XMS_ITS ---
Author Organization Unknown [facility]MENT [facility] Start Date Provider Encounter for Check-up [phone] VANE Garcia
--- OUTSIDE RECORDS SUMMARY | 2025-03-26 12:14 | XMS_ITS | Clinical Summary ---
Author Organization Healthcare Address [address] [place] [address] Care Team Providers Care Ribbon Winder Name Role Phone Unavailable Primary Care Provider Unavailabl e Immunizations Immunization Administration Dates Next Due Influenza, injectable, quadrivalent, preservativ e free 10/11/2018 Pneumococcal Polysaccharide PPV23 10/11/2018 Social History Tobacco Use Types Packs/Day Years Used Date Smoking Tobacco: Never Assessed Sex and Gender Information Value Date Recorded Sex Assigned at Not on file Legal Sex Male 6:05 PM EDT Gender Identity Not on file Sexual Orientation Not on file Plan of Treatment Health Maintenance Due Date Last Done Comments [facility]-Depression Screening 1961 [facility]-Infant/Child/Adol SDOH Screenings 1961 [facility]- SDOH Screenings 1979 [facility]-Adult SDOH Screenings 1979 [facility]-DTaP,Tdap,and Td Vaccines (1 - Tdap) 1980 CT Colonography 2006 Colonoscopy 2006 FIT-DNA 2006 FIT 2006 FOBT 2006 Sigmoidoscopy 2006 [facility]-Colorectal Cancer Screening 2006 [facility]-Zoster Vaccines (1 of 2) 2011 [facility]-Pneumococcal Vaccine: 50+ Years (2 of 2 - PCV) 10/11/2019 10/11/2018 [id number] Vaccine ( season) 2024 03/02/2022, 08/04/2021, 12/20/2020, Additional history exists [facility]-Influenza Vaccine (Season Ended) 2025 10/11/2018 [facility]-RSV Vaccine: 60+ Years or (1 - 1-dose 75+ series) 2036 HPV Vaccines Aged Out No longer eligi ble based on patient's age to complete this topic [facility]-HIB Vaccines Aged Out No longer e ligible based on patient's age to complete this topic [facility]-Hepatitis A Vaccines Aged Out No longer eligible based on patient's age to complete this topic [facility]-IPV Vaccines Aged Out No longer e ligible based on patient's age to complete this topic [facility]-Rotavirus Vaccines Aged Out No lo nger eligible based on patient's age to complete this topic
--- OUTSIDE RECORDS SUMMARY | 2025-03-26 12:14 | XMS_ITS | Clinical Summary ---
Author Organization [employer] ([place], [place], [place], [place]) Address [address] [place] [address] Care Team Providers Care Manager Occupational Name Role Phone Tony Roblero MD Primary Care Provider + Allergies No known active allergies Medications aspirin 325 MG tablet Take 1 tablet (325 mg total) by mouth daily. Active valsartan-hydr ochlorothiazid e (DIOVAN-HCT) 320-25 mg per tablet Take 1 tablet by mouth daily. Active metoprolol succinate (TOPROL-XL) 50 MG 24 hr tablet Take 1 tablet (50 mg total) by mouth daily. 01/04/20 25 Active atorvastatin (LIPITOR) 40 MG tablet Take 1 tablet (40 mg total) by mouth nightly. 11/29/19 25 Active clopidogreL (PLAVIX) 75 mg tablet Take 1 tablet (75 mg total) by mouth daily. Active multivitamin per tablet Take 1 tablet by mouth daily. Active loratadine (Claritin) 10 mg tablet Take 1 tablet (10 mg total) by mouth daily. Active docusate sodium (COLACE) 100 MG capsule Take 1 capsule (100 mg total) by mouth daily. Active albuterol 90 mcg/actuation inhaler Inhale 2 puffs by mouth every 6 (six) hours as needed for wheezing. Active omeprazole (PriLOSEC) 20 MG capsule Take 1 capsule (20 mg total) by mouth daily. Active omeprazole 20 mg TbEC Take 20 mg by mouth nightly. 02/29/20 25 Active apixaban (ELIQUIS) 2.5 mg tab tablet Take 1 tablet (2.5 mg total) by mouth 2 (two) times daily. 60 tablet 02/29/20 25 Active cilostazoL (PLETAL) 100 MG tablet Take 1 tablet (100 mg total) by mouth 2 (two) times daily. 02/01/20 25 025 Discontinued(St op Taking at Discharge) omeprazole 20 mg TbEC Take 20 mg by mouth nightly. 025 Discontinued bethanechol (URECHOLINE) 10 MG tablet Take 1 tablet (10 mg total) by mouth 3 (three) times daily for 5 days. 15 tablet 02/29/20 25 025 tamsulosin (FLOMAX) 0.4 mg cap 24 hr capsule Take 1 capsule (0.4 mg total) by mouth daily for 14 days. 14 capsule 03/01/20 25 025 oxyCODONE-acet aminophen (PERCOCET) 5-325 mg per tablet Take 1 tablet by mouth every 4 (four) hours as needed for pain for up to 18 days Look-sven e/Sound-ali ke medication* *. Max Daily Amount: 6 tablets 20 tablet 02/29/20 25 025 Active Problems Problem Noted Date Diagnosed Date Critical limb ischemia of right lower extremity 02/26/2025 Encounters Date Type Department Care Team Description 02/26/2025 12:46 PM EDT Anesthesia Event [facility] Operating Room 1 [place] [address] Raciel Pineda MD Bowen, Jon B, MD 02/26/2025 12:30 PM EDT - 02/26/2025 3:21 PM EDT Surgery [facility] Operating Room 1 [place] [address] Junior Franklin MD (RIGHT FEMORAL TO POPLITEAL ARTERY BYPASS GRAFT) 02/26/2025 10:23 AM EDT - 02/28/2025 5:53 PM EDT Hospital Encounter [facility] 4 Interventional Care Unit 1 [place] [address] Junior Franklin MD 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) Discharge Disposition: Home or Self Care 02/26/2025 Travel 02/21/2025 8:07 AM EDT - 02/21/2025 11:59 PM EDT Hospital Encounter [facility] Preadmission Testing 1 [place] [address] Junior Franklin MD Preop testing (Primary Dx) Discharge Disposition: Home or Self Care 02/21/2025 Travel from Last 3 Months Social History Tobacco Use Types Packs/Day Years Used Date Smoking Tobacco: Every Day Cigarettes Smokeless Tobacco: Never Tobacco Cessation:Ready to Q uit: Not Asked; Counseling Given: Not Answered Alcohol Use Standard Drinks/Week Comments Not Currently 0 (1 standard drink = 0.6 oz pur e alcohol) sober since 2018 Sex and Gender Information Value Date Recorded Sex Assigned at Not on file Legal Sex Male 3:30 PM CDT Gender Identity Not on file Sexual Orientation Not on file Last Filed Vital Signs Vital Sign Reading Time Taken Comments Blood Pressure 85/53 02/28/2025 4:14 PM EDT Pulse 138 02/28/2025 4:14 PM EDT Temperature 36.8 C (98.2 F) 02/28/2025 4:14 PM EDT Respiratory Rate 18 02/28/2025 4:14 PM EDT Oxygen Saturation 77% 02/28/2025 4:14 PM EDT Inhaled Oxygen Concentration - - Weight 107 kg (235 lb 12.8 oz) 02/26/2025 11:06 AM EDT Height 182.9 cm (6') 02/21/2025 9:13 AM EDT Body Mass Index 31.98 02/21/2025 9:13 AM EDT Plan of Treatment Health Maintenance Due Date Last Done Comments CT Colonography 1961 Colonoscopy 1961 Colorectal Cancer Screening 1961 FOBT/FIT 1961 Fit-DNA (Cologuard) 1961 Sigmoidoscopy 1961 Depression Screening (12+) 1973 Tobacco Cessation Counseling and Screening (12+) 1973 HIV Screening 1976 Hepatitis C Screening 1979 DTAP/TDAP/TD VACCINES (1 - Tdap) 1980 Shingles Vaccine (Zoster) (1 of 2) 2011 Pneumococcal 50+ years (2 of 2 - PCV) 10/11/2019 10/11/2018 COVID-19 VACCINE (2023-2 5 season) 2024 03/02/2022, 08/04/2021, 12/20/2020, Additional history exists Medicare IPPE (Welcome to Medicare) [id number] 09/26/2024 Influenza Vaccine (Season Ended) 2025 Lipid Panel 02/01/2028 01/31/2025, 09/30/2018 Respiratory Syncytial Virus (RSV) Adult or (1 - 1-dose 75+ series) 2036 Medical Devices Implanted Type Area Security Ambassador Device Identifier Shelf Expiration Date Model / Serial / Lot Grft Eptfe-Heparin Rng [id number] - [id number] Implanted:Qty: 1 on 02/26/2025 by Junior Franklin MD at [facility] IMPLANTS Right: Leg [employer]:MED PRDT 11/03/2027 [id number] / [id number] / Procedures Procedure Name Priority Date/Time Associated Diagnosis [...] AP PORTABLE STAT 02/27/2025 9:54 AM EDT BASIC METABOLIC PANEL Routine 02/27/2025 2:45 AM EDT CBC HEMOGRAM (SJ-BKR) Routine 02/27/2025 2:45 AM EDT TISSUE EXAM [facility] AP Routine 02/26/2025 2:00 PM EDT 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) ANESTHESIA INTUBATION Routine 02/26/2025 1:03 PM EDT MN BYP OTH/THN VEIN FEMORAL-POPLITEAL 02/26/2025 12:46 PM EDT 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) Case Notes IN 1030, 3 HR (R), PASS, NEEDS A PA HC ARTERIAL CATH SAMP/MNTR Routine 02/26/2025 11:45 AM EDT NOVA GLUCOSE POC Routine 02/26/2025 11:3 2 AM EDT ABO/RH CONFIRMATION/RETYPE ([place] BKR) Routine 02/26/2025 11:29 AM EDT TYPE AND SCREEN ([place] BKR) STAT 02/26/2025 11:27 AM EDT FS_MODEL_IP_PREPARE RBC Routine 02/26/2025 11:04 AM EDT EKG-SCANNED 02/26/2025 from Last 3 Months Results * XR chest AP portable (02/28/2025 9:19 AM EDT) Only the most recent of2 resultswithin the time period is included. Anatomical Region Laterality Modality Chest X-Ray 02/28/2025 [...] normal. IMPRESSION: Unremarkable chest, status post CABG. us Iggy Felipe MD IMG DIAGNOSTIC IMAGI NG ORDERABLES Final Result * Phosphorus (02/28/2025 8:20 AM EDT) Phosphorus 2.7 2.5 - 4.5 mg/dL 02/28/2025 9:04 AM EDT [facility] Blood Venipuncture / Unknown 02/28/2025 8:20 AM EDT 02/28/2025 8:43 AM EDT Iggy Felipe MD LAB BLOOD ORDERABLES Final Result [facility] [address] [phone] * Magnesium (02/28/2025 8:20 AM EDT) Magnesium 1.7 1.6 - 2.6 mg/dL 02/28/2025 9:04 AM EDT [facility] Blood Venipuncture / Unknown 02/28/2025 8:20 AM EDT 02/28/2025 8:43 AM EDT us Iggy Felipe MD LAB BLOOD ORDERABLES Final Result [facility] [address] [phone] * (ABNORMAL) Comprehensive metabolic panel (02/28/2025 8:20 AM EDT) Sodium 136 136 - 145 meq/L 02/28/2025 9:04 AM [facility] Potassium 3.9 3.4 - 5.1 meq/L 02/28/2025 9:04 AM [facility] Chloride 103 98 - 112 meq/L 02/28/2025 9:04 AM [facility] CO2 23 22 - 29 meq/L 02/28/2025 9:04 AM [facility] Calcium 8.3(L) 8.4 - 10.2 mg/dL 02/28/2025 9:04 AM [facility] Glucose 100 82 - 115 mg/dL 02/28/2025 9:04 AM [facility] BUN 17.3 8.4 - 25.7 mg/dL 02/28/2025 9:04 AM [facility] Creatinine 1.02 0.72 - 1.25 mg/dL 02/28/2025 9:04 AM [facility] BUN/Creatinine 17 8 - 20 02/28/2025 9:04 AM [facility] eGFR (mL/min/1.73m2) 83 >=60 mL/min/1. 73m2 02/28/2025 9:04 AM [facility] Albumin 2.8(L) 3.5 - 5.0 g/dL 02/28/2025 9:04 AM [facility] Alkaline Phosphatase 66 40 - 150 U/L 02/28/2025 9:04 AM [facility] ALT 9 <=45 U/L 02/28/2025 9:04 AM [facility] Comment: ALT2 reagent used for testing does not contain P5P supplementation and therefore may miss ALT elevations in patients with B6 deficiency. This population may be as high as 10% in the [place], with risk factors including malabsorption, drug interactions, and alcoholic hepatitis. AST 17 11 - 34 U/L 02/28/2025 9:04 AM [facility] Comment: AST2 reagent used for testing does not contain P5P supplementation and therefore may miss AST elevations in patients with B6 deficiency. This population may be as high as 10% in the [place], with risk factors including malabsorption, drug interactions, and alcoholic hepatitis. Total Bilirubin 0.9 0.2 - 1.2 mg/dL 02/28/2025 9:04 AM EDT [facility] Protein, Total 6.4 6.4 - 8.3 g/dL 02/28/2025 9:04 AM EDT [facility] Globulin 3.6 2.5 - 4.1 g/dL 02/28/2025 9:04 AM EDT [facility] Anion Gap 14(H) 4 - 12 02/28/2025 9:04 AM EDT [facility] A/G Ratio 0.8 0.7 - 1.9 02/28/2025 9:04 AM EDT [facility] Osmolality Calc 273.7 mOsm/kg 9:04 AM EDT [facility] Blood Venipuncture / Unknown 02/28/2025 8:20 AM EDT 02/28/2025 8:43 AM EDT Iggy Felipe MD LAB BLOOD ORDERABLES Final Result [facility] [address] [place] [address] * (ABNORMAL) CBC with automated diff (02/28/2025 8:19 AM EDT) WBC 9.9(H) 4.2 - 9.1 K/ L 02/28/2025 8:46 AM EDT [facility] RBC 3.27(L) 4.63 - 6.08 M/ L 02/28/2025 8:46 AM EDT [facility] Hemoglobin 10.1(L) 13.7 - 17.5 GM/DL 02/28/2025 8:46 AM EDT [facility] Hematocrit 30.7(L) 40.1 - 51.0 % 02/28/2025 8:46 AM EDT [facility] MCV 94(H) 79 - 92 fL 02/28/2025 8:46 AM EDT [facility] MCH 30.9 25.7 - 32.2 pg 02/28/2025 8:46 AM EDT [facility] MCHC 32.9 32.3 - 36.5 GM/DL 02/28/2025 8:46 AM EDT [facility] RDW 13.2 11.6 - 14.4 % 02/28/2025 8:46 AM EDT [facility] Platelets 164 140 - 375 K/CU MM 02/28/2025 8:46 AM EDT [facility] MPV 11.2 9.4 - 12.4 fL 02/28/2025 8:46 AM EDT [facility] % Neutros 70(H) 34 - 68 % 02/28/2025 8:46 AM EDT [facility] % Lymphs 17(L) 22 - 53 % 02/28/2025 8:46 AM EDT [facility] % Monos 12 5 - 12 % 02/28/2025 8:46 AM EDT [facility] % Eos 0(L) 1 - 7 % 02/28/2025 8:46 AM EDT [facility] % Baso 0 0 - 1 % 02/28/2025 8:46 AM EDT [facility] NRBC Absolute <0.01 0 - 0.012 K/ul 02/28/2025 8:46 AM EDT [facility] # Neutros 6.97(H) 1.78 - 5.38 K/ L 02/28/2025 8:46 AM EDT [facility] # Lymphs 1.68 1.32 - 3.57 K/ L 02/28/2025 8:46 AM EDT [facility] # Monos 1.14(H) 0.30 - 0.82 K/ L 02/28/2025 8:46 AM EDT [facility] # Eos 0.04 0.04 - 0.54 K/ L 02/28/2025 8:46 AM EDT [facility] # Baso <0.03 0.01 - 0.08 K/ L 02/28/2025 8:46 AM EDT [facility] Immature Granulocytes-Re lative 0.50(H) 0.01 - 0.43 % 02/28/2025 8:46 AM EDT [facility] # IG 0.05(H) 0.00 - 0.03 K/uL 02/28/2025 8:46 AM EDT [facility] Blood Venipuncture / Unknown 02/28/2025 8:19 AM EDT 02/28/2025 8:43 AM EDT Narrative [facility] - 02/28/2025 8:46 AM EDT When [...] BLOOD ORDERABLES Final Result Performing Organization Address [facility]/ZIP Co de Phone Number [facility] [address] [phone] * (ABNORMAL) CALCIUM Ionized (02/28/2025 5:08 AM EDT) Pathologist [facility] Calcium Ionized 0.97(L) 1.12 - 1.32 mmol/L 02/28/2025 5:47 AM EDT [facility] Blood Venipuncture / Unknown 02/28/2025 5:08 AM EDT 02/28/2025 5:39 AM EDT Iggy Felipe MD LAB BLOOD ORDERABLES Final Result [facility] [address] [phone] * ECG 12 lead (02/27/2025 5:13 PM EDT) VENTRICULAR RATE EKG/MIN 91 BPM GE MUSE ATRIAL RATE (MCT) 0 BPM GE MUSE QRS-INTERVAL (MSEC) 134 ms GE MUSE QT Interval 402 ms GE MUSE QTC Interval 494 ms GE MUSE R AXIS (MCT) -19 degrees GE MUSE T Wave [place] 40 degrees GE MUSE [place] Diagnosis Sinus rhythm with 1st degree AV block Right bundle branch block Abnormal ECG No previous ECGs available Confirmed by Leeann Redmond MD (2019) on 02/28/2025 7:15:10 PM GE MUSE 02/27/2025 5:13 PM EDT 02/28/2025 7:15 PM EDT Chica Hernadez FILTER PLANT OPERATOR ECG ORDERABLES Final Result GE MUSE * (ABNORMAL) CBC (Hemogram only) (02/27/2025 2:45 AM EDT) WBC 11.4(H) 4.2 - 9.1 K/ L 02/27/2025 2:53 AM EDT [facility] RBC 3.58(L) 4.63 - 6.08 M/ L 02/27/2025 2:53 AM EDT [facility] Hemoglobin 11.1(L) 13.7 - 17.5 GM/DL 02/27/2025 2:53 AM EDT [facility] Hematocrit 33.6(L) 40.1 - 51.0 % 02/27/2025 2:53 AM EDT [facility] MCV 94(H) 79 - 92 fL 02/27/2025 2:53 AM EDT [facility] MCH 31.0 25.7 - 32.2 pg 02/27/2025 2:53 AM EDT [facility] MCHC 33.0 32.3 - 36.5 GM/DL 02/27/2025 2:53 AM EDT [facility] RDW 13.3 11.6 - 14.4 % 02/27/2025 2:53 AM EDT [facility] Platelets 193 140 - 375 K/CU MM 02/27/2025 2:53 AM EDT [facility] MPV 11.2 9.4 - 12.4 fL 02/27/2025 2:53 AM EDT [facility] Blood Venipuncture / Unknown 02/27/2025 2:45 AM EDT 02/27/2025 2:51 AM EDT Junior Noemi TOPETE LAB BLOOD ORDERABLES Final Res ult [facility] [address] [phone] * (ABNORMAL) Basic Metabolic Panel (02/27/2025 2:45 AM EDT) Sodium 135(L) 136 - 145 meq/L 02/27/2025 3:15 AM EDT [facility] Potassium 4.3 3.4 - 5.1 meq/L 02/27/2025 3:15 AM EDT [facility] CO2 22 22 - 29 meq/L 02/27/2025 3:15 AM EDT [facility] Chloride 105 98 - 112 meq/L 02/27/2025 3:15 AM EDT [facility] Glucose 106 82 - 115 mg/dL 02/27/2025 3:15 AM EDT [facility] BUN 15.7 8.4 - 25.7 mg/dL 02/27/2025 3:15 AM EDT [facility] Creatinine 1.01 0.72 - 1.25 mg/dL 02/27/2025 3:15 AM EDT [facility] BUN/Creatinine 16 8 - 20 02/27/2025 3:15 AM EDT [facility] Calcium 8.4 8.4 - 10.2 mg/dL 02/27/2025 3:15 AM EDT [facility] Anion Gap 12 4 - 12 02/27/2025 3:15 AM EDT [facility] eGFR (mL/min/1.73m2) 84 >=60 mL/min/1.7 3m2 02/27/2025 3:15 AM EDT [facility] Osmolality Calc 271.6 mOsm/kg 3:15 AM EDT [facility] Blood Venipuncture / Unknown 02/27/2025 2:45 AM EDT 02/27/2025 2:51 AM EDT Junior Noemi TOPETE LAB BLOOD ORDERABLES Final Res ult [facility] [address] [phone] * Tissue Exam (02/26/2025 2:00 PM EDT) AP RESULT See Note: [facility] Comment: [facility] [address] [place] [address] or [phone] Chris Perez M.D., Computer Programming Manager PATIENT NAME LABORATORY NO. [address] TRICIA LARKIN [id number] AGE SEX SSN CLIENT REF # [facility] 64 1960 M [id number] 1 [facility] REQUESTING Joselito ATTENDING Joselito [address]Y TO. [address] COLLECTED DATE RECEIVED DATE REPORTED 02/26/2025 02/26/2025 02/28/2025 DIAGNOSIS: ARTERY, ATHEROMATOUS PLAQUE, RIGHT FEMORAL: Moderately calcified atheromatous plaque [facility] CLINICAL HISTORY: Atherosclerosis of [place] arteries of extremities with gangrene, right leg SPECIMENS RECEIVED: ARTERY, ATHEROMATOUS PLAQUE, RIGHT FEMORAL MICROSCOPIC DESCRIPTION: Tissue blocks are prepared and slides are examined microscopically on all specimens. See diagnosis for details. Professional interpretation rendered by Koby Angel M.D., F.C.A.P. at [employer] [employer], [address] [place] [address], [place] [address]. GROSS DESCRIPTION: Received in formalin labeled right femoral plaque are multiple fragments of sanchez-yellow rubbery to densely calcified atheromatous material aggregating 4.5 x 1.8 x 0.8 cm. A small amount of thrombus material is noted upon sectioning. Job Placement Specialist sections of calcified tissue are submitted in block A1 following decalcification. MTS REVIEWED, DIAGNOSED AND ELECTRONICALLY SIGNED BY: Koby Angel M.D., F.C.A.P. CPT CODES: 35485, [id number] Tissue PLAQUE / Unknown 02/26/2025 2:00 PM EDT Junior Noemi TPOETE PATHOLOGY/CYTOLOGY ORDERABLES Final Result [facility] [address] * AN SINGLE LUMEN INTUBATION (02/26/2025 1:03 PM EDT) Weston NegretegeKaylin CRNA - 02/26/2025 1:03 PM EDT Ramos Beck 02/26/2025 1:27 PM Intubation Authorized by: Dean Logan MD Performed [...] Bilateral BS and chest rise, ETCO2 confirmed Dean Logan MD ANESTHESIA ORDERABLES Final Resu lt * HC ARTERIAL CATH SAMP/MNTR (02/26/2025 11:45 AM EDT) Raciel Hines MD - 02/26/2025 11:45 AM EDT Raciel [...] complications Comments Attempt x 1, no complications Raciel Pineda MD ANESTHESIA ORDERABLES Kathrin l Result * (ABNORMAL) Glucose, Nova Meter (02/26/2025 11:32 AM EDT) POC-GLUCOSE 111(H) 70 - 110 mg/dL 02/26/2025 11:33 AM EDT [facility] Comment: In the event of poor peripheral blood flow, venous or arterial blood should be used due to the potential of erroneous results. Notified Nurse RBV Power Regulator [id number] 02/26/2025 11:33 AM EDT [facility] Blood WHOLE BLOOD / Unknown 02/26/2025 11:32 AM EDT 02/26/2025 11:33 AM EDT Narrative [facility] - 02/26/2025 11:33 AM EDT Power Regulator ID is - [id number] Junior Noemi TOPETE POINT OF CARE TEST ORDERABLES Final Result [facility] [address] [phone] * ABO/RH Confirmation/Retype (02/26/2025 11:29 AM EDT) RETYPE O Negative 02/26/2025 11:13 AM EDT [facility] [place] Blood Venipuncture / Unknown 02/26/2025 11:29 AM EDT 02/26/2025 11:37 AM EDT Raciel Pineda MD [facility] BLOOD BANK TEST ORDERA BLES Final Result [facility] [place] [address] [phone] * Type and Screen (02/26/2025 11:27 AM EDT) ABO/Rh O Negative 02/26/2025 11:04 AM EDT [facility] ([place]) Antibody Screen Negative 02/26/2025 11:04 AM EDT [facility] [place] HISTCHK HIST CHECK PERFORMED 02/26/2025 11:04 AM EDT [facility] ([place] Blood Venipuncture / Unknown 02/26/2025 11:27 AM EDT 02/26/2025 11:37 AM EDT us Raciel Pineda MD [facility] BLOOD BANK TEST ORDERA BLES Final Result [facility] [place] [address] [facility] [place] [address], [facility] [phone] * EKG-SCANNED (02/26/2025) Narrative 02/26/2025 Ordered by an unspecified provider. us Default Scanning Provider SCAN ORDERS Final Result from Last 3 Months [facility]O MAP Advance Directives For more information, please contact: [phone] * Full Code (Latest Code Status on File) Date Activated Date Inactivated Comments 02/26/2025 10:04 AM 02/28/2025 6:53 PM Care Teams Manager Occupational Relationship Specialty Start Date End Date Tony Roblero MD [address] [place] [address] [place] [address] PCP - General Internal Medicine 02/21/25
--- OUTSIDE RECORDS SUMMARY | 2025-03-26 12:14 | XMS_ITS | Referral Summary ---
Author Organization [employer] ([place], [place], [place], [place]) Address [address] [place] [address] Care Team Providers Care Pr Manager Name Role Phone Tony Roblero MD Primary Care Provider + Encounters Date Type Department Care Team Description 02/26/2025 10:23 AM EDT - 02/28/2025 5:53 PM EDT Hospital Encounter 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 Operating Room 1 [place] [address] Junior Franklin MD (RIGHT FEMORAL TO POPLITEAL ARTERY BYPASS GRAFT) 02/26/2025 12:46 PM EDT Anesthesia Event [facility] Operating Room 1 [place] [address] Raciel Pineda MD Bowen, Jon B, MD 02/21/2025 Travel 02/21/2025 8:07 AM EDT - 02/21/2025 11:59 PM EDT Hospital Encounter [facility] Preadmission Testing 1 [place] [address] Junior Franklin MD Preop testing (Primary Dx) Discharge Disposition: Home or Self Care from Last 3 Months Allergies No known active allergies Medications aspirin [...] Take 20 mg by mouth nightly. 02/29/20 Active apixaban (ELIQUIS) 2.5 mg tab tablet [...] limb ischemia of right lower extremity 02/26/2025 Social History Tobacco Use Types Packs/Day Years [...] 02/21/2025 9:13 AM EDT Plan of Treatment Not on file Medical Devices Implanted Type Area Sales Leader Device Identifier Shelf Expiration Date Model / Serial / Lot Grft Eptfe-Heparin Rng [id number] - [id number] Implanted:Qty: 1 on 02/26/2025 by Junior Franklin MD at 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) ANESTHESIA INTUBATION Routine 02/26/2025 1:03 PM EDT ID BYP OTH/THN VEIN FEMORAL-POPLITEAL 02/26/2025 12:46 PM EDT Atherosclerosis of levelock artery of right lower extremity with gangrene [...] Final Result [facility] [address] [phone] * Magnesium (02/28/2025 8:20 AM EDT) Magnesium 1.7 1.6 - 2.6 mg/dL 02/28/2025 9:04 AM EDT [facility] Blood Venipuncture / Unknown 02/28/2025 8:20 AM EDT 02/28/2025 8:43 AM EDT Iggy Felipe MD LAB BLOOD ORDERABLES Final Result [facility] [address] [phone] * (ABNORMAL) Comprehensive metabolic panel (02/28/2025 8:20 [...] 2.5 - 4.1 g/dL 02/28/2025 9:04 AM T [facility] Anion Gap 14(H) 4 - 12 02/28/2025 9:04 AM EDT [facility] A/G Ratio 0.8 0.7 - 1.9 02/28/2025 9:04 AM T [facility] Osmolality Calc 273.7 mOsm/kg 9:04 AM [facility] Blood Venipuncture / Unknown 02/28/2025 8:20 AM EDT 02/28/2025 8:43 AM EDT us Iggy Felipe MD LAB BLOOD ORDERABLES Final Result [facility] [address] [phone] * (ABNORMAL) CBC with automated diff (02/28/2025 [...] Final Result [facility] [address] [place] [id number] [phone] * (ABNORMAL) CALCIUM Ionized (02/28/2025 5:08 AM EDT) Pathologist [facility] Calcium Ionized 0.97(L) 1.12 - 1.32 mmol/L 02/28/2025 5:47 AM EDT [facility] Blood Venipuncture / Unknown 02/28/2025 5:08 AM EDT 02/28/2025 5:39 AM EDT Iggy Felipe MD LAB BLOOD ORDERABLES Final Result Performing Organization Address [facility] Co de Phone Number [facility] [address] [phone] * ECG 12 lead (02/27/2025 5:13 PM EDT) VENTRICULAR RATE EKG/MIN 91 BPM GE MUSE ATRIAL RATE (MCT) 0 BPM GE MUSE QRS-INTERVAL (MSEC) 134 ms GE MUSE QT Interval 402 ms GE MUSE QTC Interval 494 ms GE MUSE R AXIS (MCT) -19 degrees GE MUSE T Wave [place] 40 degrees GE MUSE [place] Diagnosis Sinus rhythm with 1st degree AV block Right bundle branch block Abnormal ECG No previous ECGs available Confirmed by Ruy TOPETE, Leeann (2019) on 02/28/2025 7:15:10 PM GE MUSE 02/27/2025 5:13 PM EDT 02/28/2025 7:15 PM EDT Chica Hernadez APRN ECG ORDERABLES Final Result Performing Organization Address [facility] Co de Phone Number GE MUSE * (ABNORMAL) CBC (Hemogram only) [...] EDT 02/27/2025 2:51 AM EDT Juan Carlos [facility] MD LAB BLOOD ORDERABLES Final Res ult [facility] [address] [phone] * (ABNORMAL) Basic Metabolic Panel (02/27/2025 2:45 [...] EDT 02/27/2025 2:51 AM EDT Juan Carlos [facility] LAB BLOOD ORDERABLES Final Res ult Performing Organization Address City/State/[facility] Co de Phone Number [facility] [address] [phone] * Tissue Exam (02/26/2025 2:00 PM EDT) AP RESULT See Note: [facility] Comment: [facility] [address] [place] [address] or [phone] Chris Perez M.D., Distribution Clerk PATIENT NAME LABORATORY NO. [address]ARKIN [id number] AGE SEX SSN CLIENT REF # [facility] 64 [id number] M [id number] 1 [facility] REQUESTING Joselito ATTENDING Joselito [address]Y TO. [address] DATE COLLECTED DATE RECEIVED DATE REPORTED 02/26/2025 02/26/2025 02/28/2025 DIAGNOSIS: ARTERY, ATHEROMATOUS PLAQUE, RIGHT FEMORAL: Moderately calcified atheromatous plaque [facility] CLINICAL HISTORY: Atherosclerosis of levelock arteries of extremities with gangrene, right leg SPECIMENS RECEIVED: ARTERY, ATHEROMATOUS PLAQUE, RIGHT FEMORAL MICROSCOPIC DESCRIPTION: Tissue blocks are prepared and slides are examined microscopically on all specimens. See diagnosis for details. Professional interpretation rendered by Koby Angel M.D., [place] at [facility], [address] [place] [address]. GROSS DESCRIPTION: Received in formalin labeled right femoral plaque are multiple fragments of sanchez-yellow rubbery to densely calcified atheromatous material aggregating 4.5 x 1.8 x 0.8 cm. A small amount of thrombus material is noted upon sectioning. Regional Operations Director sections of calcified tissue are submitted in block A1 following decalcification. MTS REVIEWED, DIAGNOSED AND ELECTRONICALLY SIGNED BY: Koby Angel M.D., [place]hemy CPT CODES: [id number], [id number] Tissue PLAQUE / Unknown 02/26/2025 2:00 PM EDT [facility] MD PATHOLOGY/CYTOLOGY ORDERABLES Final Result Performing Organization Address City/State/[facility] Co de Phone Number [facility] [address] [place] [address] * AN SINGLE LUMEN INTUBATION (02/26/2025 1:03 [...] potential of erroneous results. Notified Nurse RBV R D Engineer [id number] 02/26/2025 11:33 AM EDT [facility] Blood WHOLE BLOOD / Unknown 02/26/2025 11:32 AM EDT 02/26/2025 11:33 AM EDT Narrative [facility] - 02/26/2025 11:33 AM EDT R D Engineer ID is - [id number] Junior Noemi TOPETE POINT OF CARE TEST ORDERABLES Final Result [facility] [address] [phone] * ABO/RH Confirmation/Retype (02/26/2025 11:29 AM EDT) RETYPE O Negative 02/26/2025 11:13 AM EDT [facility] [place] Blood Venipuncture / Unknown 02/26/2025 11:29 AM EDT 02/26/2025 11:37 AM EDT Raciel Pineda MD [facility] BLOOD [facility] TEST ORDERA BLES Final Result Performing Organization Address [facility]/ZIP Co de Phone Number [facility] [place] [address] [place] [address], [facility] [phone] * Type and Screen (02/26/2025 11:27 AM EDT) ABO/Rh O Negative 02/26/2025 11:04 AM EDT [facility] [place] Antibody Screen Negative 02/26/2025 11:04 AM EDT [facility] [place] HISTCHK HIST CHECK PERFORMED 02/26/2025 11:04 AM EDT [facility] [place] Blood Venipuncture / Unknown 02/26/2025 11:27 AM EDT 02/26/2025 11:37 AM EDT Raciel Pineda MD [facility] BLOOD [facility] TEST ORDERA BLES Final Result Performing Organization Address [facility]/ZIP Co de Phone Number [facility] [place] [address] [place] [address], [facility] [phone] * EKG-SCANNED (02/26/2025) Narrative 02/26/2025 Ordered by an unspecified provider. Default Scanning Provider SCAN ORDERS Final Result from Last 3 Months Insurance [facility] AN[employer]M MED[employer]LUE ACCESS HMO MAP Advance Directives For more information, please contact: [phone] * Full Code (Latest Code Status on File) Date Activated Date Inactivated Comments 02/26/2025 10:04 AM 02/28/2025 6:53 PM Care Teams Pr Manager Relationship Specialty Start Date End Date Tony Roblero MD [address] [place] [address] [place] [address] PCP - General Internal Medicine 02/21/25
--- OUTSIDE RECORDS SUMMARY | 2025-03-26 12:15 | XMS_ITS | Encounter Summary ---
Author Organization [employer] ([place], [place], [place], [place]) Address [address] [place] [address] Care Team Providers Care Memory Care Director Name Role Phone Tony Roblero MD Primary Care Provider + Encounter Details Date Type Department Care Team (Latest Contact Info) Description 02/26/2025 Travel Social History Tobacco Use Types Packs/Day Years [...] on file documented as of this encounter Plan of Treatment Not on file documented as of this encounter Visit Diagnoses Not on filedocumented in this encounter Care Teams Memory Care Director Relationship Specialty Start Date End Date Tony Roblero MD [address] [place] [address] PCP - General Internal Medicine 02/21/25 documented as of this encounter
[2025-03-26 13:15] LABS: Hematocrit 37.0 % (42.0-52.0); Hemoglobin 11.9 g/dL (14.1-18.0); Immature Granulocytes % 0.3 %; Mean Corpuscular HGB Conc 32.2 g/dL (31.8-35.4); Mean Corpuscular Hemoglobin 30.1 pg (27.0-31.2); Mean Corpuscular Volume 93.7 fl (80-94); Nucleated Red Blood Cells % 0 %; Platelet Count 191 K/mm3 (142-424); Red Blood Count 3.95 M/mm3 (4.60-6.20); Red Cell Distribution Width-SD 45.4 fL; White Blood Count 9.8 K/mm3 (4.8-10.8)
[2025-03-26 13:43] LABS: Chloride 101 mmol/L (98-107); Potassium 4.3 mmoL/L (3.5-5.1); Sodium 140 mmol/L (136-145)
[2025-03-26 13:46] LABS: Anion Gap 16.3 mEq/L (5-15); Blood Urea Nitrogen 16 mg/dl (9-20); Calcium 9.2 mg/dl (8.4-10.2); Carbon Dioxide 27 mmol/L (22.0-30.0); Creatinine,Serum 1.00 mg/dl (0.66-1.25); Estimated Glomerular Filt Rate 75 ml/min (>60); GFR (African American) 91 ML/MIN (>60); Glucose 90 mg/dl (74-100)
== END 2025-03-26 23:59 | disposition home or self-care (01) ==
LOC: LAB 12:06
PROVIDERS: PCP Internal Medicine; Visit Provider Surgery
DX: I10 Essential (primary) hypertension
CPT/HCPCS: 36415; 80048; 85025